=== PATIENT | male | born 1935 | race Caucasian/White ===

== ENCOUNTER → 2017-09-15 15:09 | Outpatient (CLI) | payer OTHER, SELFPAY ==
--- NOTE | 2017-09-15 | DI.RAD.S_ITS ---
PROCEDURE: XR SHOULDER LT MIN 2V INDICATIONS: LEFT SHOLDER PAIN TECHNIQUE: 4 views of the shoulder were acquired. COMPARISON: None. FINDINGS: Bones: No fractures or dislocations. No suspicious bony lesions. Visualized ribs appear intact. Degenerative joint narrowing and marginal spurring at the a.c. and glenohumeral joints. Soft tissues: No suspicious soft tissue calcifications. Aortic calcifications. IMPRESSION: 1. No acute bony abnormality. 2. 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 Dictated by: Luis Avalos M.D. on 09/15/2017 at 16:03 Approved by: Luis Avalos M.D. on 09/15/2017 at 16:05
--- NOTE | 2017-09-15 | DI.RAD.S_ITS ---
PROCEDURE: XR SHOULDER RT MIN 2V INDICATIONS: SHOULDER PAIN TECHNIQUE: 4 views of the shoulder were acquired. COMPARISON: None. FINDINGS: Bones: Old fracture deformity right mid clavicle. No acute fractures or dislocations. No suspicious bony lesions. Visualized ribs appear intact. Marginal spurring consistent with arthritis at the a.c. joint level. Medial humeral head bone spur indicates glenohumeral arthritis. The humeral head is high riding with narrowed subacromial space, suggesting rotator cuff pathology. Soft tissues: No suspicious soft tissue calcifications. IMPRESSION: 1. Glenohumeral and acromioclavicular osteoarthritis. Dictated by: Luis Avalos M.D. on 09/15/2017 at 16:17 Approved by: Luis Avalos M.D. on 09/15/2017 at 16:18
== END ==
PROVIDERS: Family Provider Urology; PCP Internal Medicine; Visit Provider Chiropractor
DX: M19.012 Primary osteoarthritis, left shoulder (principal)
CPT/HCPCS: 73030

== ENCOUNTER → 2018-04-13 13:37 | Outpatient (CLI) | payer OTHER, SELFPAY ==
--- NOTE | 2018-04-13 | DI.RAD.S_ITS ---
PROCEDURE: XR ANKLE LT MIN 3V INDICATIONS: LEFT ANKLE AND JOINTS TECHNIQUE: 5 views of the ankle were acquired. COMPARISON: None. FINDINGS: Bones: Oblique fracture of the lateral malleolus at the level of the syndesmosis. Medial and lateral malleolar tip spurring. Diffuse spurring of the the hindfoot and midfoot. Plantar and posterior calcaneal spurs. Soft tissues: No tibiotalar joint effusion. Achilles tendon appears normal. Scattered vascular calcifications. IMPRESSION: Lateral malleolar oblique fracture. Overlying soft tissue swelling Plantar and posterior calcaneal spurs. Dictated by: Harpreet Bui M.D. on 04/13/2018 at 16:20 Approved by: Harpreet Bui M.D. on 04/13/2018 at 16:23
[2018-04-13 15:22] LABS: Alanine Aminotransferase 27 IU/L (21-72); Albumin 4.3 g/dL (3.5-5.0); Albumin Globulin Ratio 1.5 (1.0-2.8); Alkaline Phosphatase 71 U/L (38-126); Aspartate Aminotransferase 20 IU/L (17-59); BUN Creatinine Ratio 18.9 (6-22); Bilirubin Total 0.4 mg/dL (0.2-1.3); Blood Urea Nitrogen 17 mg/dL (9-20); Calcium 11.1 mg/dL (8.4-10.2); Carbon Dioxide 28 mmol/L (22-32); Chloride 101 mmol/L (98-107); Estimated Glomerular Filt Rate > 60.0 mL/min (>60); Globulin 2.9 g/dL (1.7-4.1); Glucose 107 mg/dL (80-110); HEMOLYSIS < 15 (0-50); Potassium 4.5 mmol/L (3.4-5.1); Sodium 143 mmol/L (137-145); Total Protein 7.2 g/dL (6.3-8.2)
[2018-04-13 15:52] LABS: Prostate Specific Antigen Scrn 1.61 ng/mL (0.1-4.0)
[2018-04-13 16:36] LABS: HIV 1 and 2 Antibody NEGATIVE (NEGATIVE); Hep C Virus Ab w/Reflex Quant NEGATIVE s/c (NEGATIVE)
[2018-04-15 13:36] LABS: Parathyroid Hormone Int 86 pg/mL (14-64)
== END ==
PROVIDERS: Family Provider Urology; PCP Internal Medicine; Visit Provider Internal Medicine
DX: Z77.21 Contact with and (suspected) exposure to potentially hazardous body fluids (principal); E21.0 Primary hyperparathyroidism; R03.0 Elevated blood-pressure reading, without diagnosis of hypertension; M25.572 Pain in left ankle and joints of left foot; Z12.5 Encounter for screening for malignant neoplasm of prostate
CPT/HCPCS: 36415; 73610; 80053; 83970; 86703; 86803; G0103

== ENCOUNTER → 2018-07-16 13:48 | Outpatient (CLI) | payer OTHER, SELFPAY | PROVIDERS: PCP Internal Medicine; Visit Provider Internal Medicine | DX: M81.0 Age-related osteoporosis without current pathological fracture (principal); E21.3 Hyperparathyroidism, unspecified | CPT/HCPCS: 77080 ==

== ENCOUNTER → 2018-11-17 11:14 | Outpatient (CLI) | payer OTHER, SELFPAY ==
[2018-11-17 12:10] LABS: Calcium 10.3 mg/dL (8.4-10.2); Estimated Glomerular Filt Rate > 60.0 mL/min (>60)
[2018-11-17 21:25] LABS: Vitamin D 25 Hydroxy (D3) 49.8 ng/mL (30.0-100.0)
== END ==
PROVIDERS: PCP Internal Medicine; Visit Provider Internal Medicine Endocrinology, Diabetes & Metabolism
DX: E21.3 Hyperparathyroidism, unspecified (principal); M81.8 Other osteoporosis without current pathological fracture
CPT/HCPCS: 36415; 82306; 82310; 82565; 84443

== ENCOUNTER → 2018-11-19 12:00 | Outpatient (CLI) | payer OTHER, SELFPAY ==
[2018-11-19 15:38] LABS: Collection Time Urine 24 Hours; Creatinine 24 Hour Urine 1305 mg/day (1000-2000); Creatinine Urine Random 84.2 mg/dL; Total Volume Urine 1550 mL
[2018-11-19 15:44] LABS: Calcium 24 Hour Urine 369 mg/day (100-300); Calcium Urine Random 23.8; Collection Time Urine 24 Hours; Total Volume Urine 1550 mL
== END ==
PROVIDERS: Family Provider Internal Medicine; PCP Internal Medicine; Visit Provider Internal Medicine Endocrinology, Diabetes & Metabolism
DX: E21.3 Hyperparathyroidism, unspecified (principal); M81.8 Other osteoporosis without current pathological fracture
CPT/HCPCS: 82340; 82570

== ENCOUNTER 2019-02-09 00:51 | Emergency (ER) | payer OTHER, SELFPAY ==
[2019-02-09 00:54] VITALS: BP 168/95; PULSE 93; RESP 14; TEMP 36.8; O2SAT 94; BMI 24.3
--- NOTE | 2019-02-09 00:56 | ED.NEUROSD ---
HPI - Neuro Symptoms/Deficit General Chief Complaint: Neuro Symptoms/Deficit Stated Complaint: Lt side numbness Time Seen by Provider: 02/09/19 00:53 Source: patient and EMS Mode of arrival: EMS Limitations: no limitations History of Present Illness HPI Narrative: Patient is an 83-year-old male who presents with left-sided numbness. He states it started around 930 p.m. he felt like his face arm and leg were numb. He did not complain of weakness. He arrived in the ED at 12:45 a.m.. With improving symptoms. He denies any chest pain. He had no facial drooping or difficulty speaking. He has no prior history of TIA or stroke. He says he usually lays on his left side what Muna TV sometimes his leg or arm. Sleep. However he was up and about and the symptoms did not go away. They do seem to be improving now Related Data Home Medications Medication Instructions Recorded Confirmed CALCIUM CARBONATE (TUMS ) 500 mg NG PRN #0 08/18/10 Allergies Allergy/AdvReac Type Severity Reaction Status Date / Time codeine [CODEINE] AdvReac Mild n&v Verified 02/09/19 00:57 morphine [MORPHINE] AdvReac Mild N&V Verified 02/09/19 00:57 Review of Systems Review of Systems ROS Unobtainable: All systems reviewed & are unremarkable except as noted in HPI and below Constitutional Constitutional: Denies chills, Denies fever(s), Denies lethargy and Denies weakness Eyes Eyes: Denies change in vision, Denies eye discharge, Denies irritation and Denies loss of vision ENT Ears, Nose, Mouth, and Throat: Denies change in voice, Denies neck pain and Denies sore throat Cardiovascular Cardiovascular: Denies chest pain, Denies irregular heart rhythm, Denies lightheadedness, Denies palpitations, Denies dyspnea, Denies dyspnea on exertion and Denies orthopnea Respiratory Respiratory: Denies cough, Denies dyspnea, Denies dyspnea on exertion and Denies wheezing Genitourinary Genitourinary: Denies hematuria, Denies flank pain, Denies urinary incontinence and Denies urinary urgency Musculoskeletal Musculoskeletal: Denies neck pain and Reports tingling Neurologic Neurologic: Denies confusion, Denies loss of vision, Reports tingling and Denies weakness Psychiatric Psychiatric: Denies anxiety, Denies confusion, Denies depression, Denies homicidal ideation and Denies suicidal ideation Endocrine Endocrine: Denies palpitations Allergic/Immunologic Allergic/Immunologic: Denies wheezing Patient History Medical History Patient denies medical problems (Acute) Social History (Updated 02/09/19 @ 06:11 by Leighann Salinas DO) Smoking Status: Never smoker alcohol intake: never Social History Smoking Status: Never smoker alcohol intake: never Exam Initial Vital Signs Initial Vital Signs: Vital Signs Temperature 98.2 F 02/09/19 00:54 Pulse Rate 93 H 02/09/19 00:54 Respiratory Rate 14 02/09/19 00:54 Blood Pressure 168/95 H 02/09/19 00:54 Pulse Oximetry 94 02/09/19 00:54 GENERAL: Alert well-appearing elderly gentleman HEENT: Head atraumatic,EOMI, pupils reactive, face symmetric, moist mucous membranes CARDIOVASCULAR: Regular rate and rhythm without murmurs, rubs or gallops. RESPIRATORY: Breath sounds equal bilaterally, no wheezes rales or rhonchi. ABDOMEN: Soft, nontender. Normoactive bowel sounds all 4 quadrants. No guarding or rebound. EXTREMITIES: Normal range of motion, no clubbing or edema. Neurovascularly intact NEUROLOGICAL: Alert and oriented x4.Normal gait and speech. Cranial nerves II through XII grossly intact. Good tadlxq-vl-xmbo, good uibx-xk-auls, strength equal bilaterally, no dysarthria or aphasia, sensation in tact to soft touch bilaterally, no visual changes, no facial droop SKIN: Warm, dry, no laceration, no petechiae, no rashes or lesions. Scores ABCD2 Age >= 60 years: yes Initial BP. Either SBP >= 140 or DBP >= 90.: yes Clinical features of the TIA: other symptoms Duration of symptoms: >= 60 minutes History of diabetes: no ABCD2 Score: 4 NIH Stroke Scale Level of Conciousness: Alert, keenly responsive Ask month/age: Answers both questions correctly. Open/close eyes, close hand: Performs both tasks correctly Best gaze horizontal: Normal Visual hurd: No visual loss Facial palsy: Normal symetrical movement Left arm drift: No drift for full 10 sec Right arm drift: No drift for full 10 sec Left leg drift: No drift for full 10 sec Right leg drift: No drift for full 10 sec Limb ataxia: Absent Sensory on face/arms/legs: Normal, no sensory loss Best language: No aphasia, normal Dysarthria: Normal Extinction or inattention: No abnormality Total NIH Stroke scale score: 0 Course Orders Ordered: ED Orders 02/09/19 EKG-12 Lead Stat 02/09/19 00:30 Basic Metabolic Panel Stat Complete Blood Count AUTO DIFF Stat Partial Thromboplastin Time Stat Prothrombin Time INR Stat 02/09/19 01:05 CT head/brain wo con Stat 02/09/19 02:00 Urine Culture Stat Urine Drug Screen, Rapid Stat Urine Microscopic Stat Sodium Chloride (Normal Saline 0.9%) 1,000 mls @ 150 mls/hr IV CONT JACKIE Last Admin: 02/09/19 01:09 Dose: 150 mls/hr Documented by: FERNANDO Discontinued Medications Aspirin (Aspirin Chew) 324 mg PO NOW ONE Stop: 02/09/19 02:24 Last Admin: 02/09/19 02:35 Dose: 324 mg Documented by: [email or web address] Vital Signs Vital signs: Vital Signs - 8 hr 02/09/19 00:54 02/09/19 01:19 02/09/19 02:43 Temperature 98.2 F Pulse Rate 93 H 93 H 93 H Respiratory Rate 14 18 16 Blood Pressure 168/95 H Blood Pressure [Left Arm] 138/92 H 134/79 Pulse Oximetry 94 95 95 02/09/19 03:33 Temperature Pulse Rate 95 H Respiratory Rate 17 Blood Pressure Blood Pressure [Left Arm] 161/103 H Pulse Oximetry 97 MDM - Neuro Symptoms/Deficit Lab Data Attestation: I reviewed the patient's lab results. Result diagrams: 02/09/19 00:30 02/09/19 00:30 Labs: Lab Results 02/09/19 02/09/19 02/09/19 Range/Units 00:30 00:30 00:30 WBC 7.0 (4.5-11.0) X10^3/uL RBC 4.83 (4.5-5.9) X10^6/uL Hgb 14.5 (13.5-17.5) g/dL Hct 43.2 (41-53) % MCV 89.5 (80-100) fL MCH 30.0 (26-34) PG MCHC 33.6 (30-36) % RDW 13.7 (11.6-14.8) % Plt Count 223 (150-400) X10^3/uL Neut % (Auto) 63.2 (50-75) % Lymph % (Auto) 21.7 L (25-40) % [place] % (Auto) 9.8 (3-14) % Eos % (Auto) 4.3 H (2-4) % Baso % (Auto) 1.0 (0-2) % Neut # (Auto) 4400 (5650-5979) /uL Lymph # (Auto) 1500 (7588-1626) /uL [place] # (Auto) 700 (0-900) /uL Eos # (Auto) 300 (0-450) /uL Baso # (Auto) 100 (0-100) /uL PT 11.0 (10.1-12.7) SECONDS INR 1.0 (0.9-1.3) APTT 32 (26.4-36.2) SECONDS Sodium 138 (137-145) mmol/L Potassium 4.2 (3.4-5.1) mmol/L Chloride 103 (98-107) mmol/L Carbon Dioxide 29 (22-32) mmol/L BUN 16 (9-20) mg/dL Creatinine 0.80 (0.66-1.25) mg/dL Estimated GFR > 60.0 (>60) mL/min BUN/Creatinine Ratio 20.0 (6-22) Glucose 111 H (80-110) mg/dL Calcium 10.9 H (8.4-10.2) mg/dL Urine RBC (0-5/HPF) Urine WBC (0-5/HPF) Urine Bacteria (None) Ur Culture Indicated? U Morph 300 ng/mL cutoff (Negative) Ur Oxycodone Screen (Negative) Urine Methadone Screen (Negative) Ur Barbiturates Screen (Negative) U Tricyclic Antidepress (Negative) Ur Phencyclidine Scrn (Negative) Ur Amphetamines Screen (Negative) U Methamphetamines Scrn (Negative) Ur MDMA Scrn (Ecstasy) (Negative) U Benzodiazepines Scrn (Negative) Urine Cocaine Screen (Negative) U Marijuana (THC) Screen (Negative) 02/09/19 02/09/19 Range/Units 02:00 02:00 WBC (4.5-11.0) X10^3/uL RBC (4.5-5.9) X10^6/uL Hgb (13.5-17.5) g/dL Hct (41-53) % MCV (80-100) fL MCH (26-34) PG MCHC (30-36) % RDW (11.6-14.8) % Plt Count (150-400) X10^3/uL Neut % (Auto) (50-75) % Lymph % (Auto) (25-40) % [place] % (Auto) (3-14) % Eos % (Auto) (2-4) % Baso % (Auto) (0-2) % Neut # (Auto) (9014-7757) /uL Lymph # (Auto) (5081-9297) /uL [place] # (Auto) (0-900) /uL Eos # (Auto) (0-450) /uL Baso # (Auto) (0-100) /uL PT (10.1-12.7) SECONDS INR (0.9-1.3) APTT (26.4-36.2) SECONDS Sodium (137-145) mmol/L Potassium (3.4-5.1) mmol/L Chloride (98-107) mmol/L Carbon Dioxide (22-32) mmol/L BUN (9-20) mg/dL Creatinine (0.66-1.25) mg/dL Estimated GFR (>60) mL/min BUN/Creatinine Ratio (6-22) Glucose (80-110) mg/dL Calcium (8.4-10.2) mg/dL Urine RBC 0-1/hpf (0-5/HPF) Urine WBC 0-1/hpf (0-5/HPF) Urine Bacteria None seen (None) Ur Culture Indicated? Specimen cultured U Morph 300 ng/mL cutoff Negative (Negative) Ur Oxycodone Screen Negative (Negative) Urine Methadone Screen Negative (Negative) Ur Barbiturates Screen Negative (Negative) U Tricyclic Antidepress Negative (Negative) Ur Phencyclidine Scrn Negative (Negative) Ur Amphetamines Screen Negative (Negative) U Methamphetamines Scrn Negative (Negative) Ur MDMA Scrn (Ecstasy) Negative (Negative) U Benzodiazepines Scrn Negative (Negative) Urine Cocaine Screen Negative (Negative) U Marijuana (THC) Screen Negative (Negative) Urine Dip Bedside Urine Glucose 100 mg/dl Bedside Urine Bilirubin - Negative Bedside Urine Ketone - Negative Urine Specific [place] 1.010 Bedside Urine Occult Blood +/- Bedside Urine pH 6.5 Bedside Urine Protein - Negative Bedside Urine Urobilinogen - Negative Bedside Urine Nitrite - Negative Bedside Urine Leukocytes + [address] scan - head: Radiologist's impression: shift foreman report: Generalized involutional changes with extensive chronic microvascular changes noted. No acute abnormality identified ECG Data Attestation: I personally reviewed and interpreted this ECG as follows: Prior ECG tracings: available for review Interpretation: Right bundle branch block rate id was sinus rhythm. similar to previous MDM Narrative Medical decision making narrative: Patient overall is feeling better. He had some vague numbness on left side of his body which improved. Possible TIA Discharge Plan Departure Patient Disposition: Home Clinical Impression: Brain TIA Instructions: DI for Transient Ischemic Attack Activity Restrictions/Additional Instructions: *You have been diagnosed with tia *What to do: You still need further workup with her PCP. You need MRI echocardiogram and carotid Dopplers. The symptoms suggest a possible mini stroke. This can put you at risk for a much larger more prominent stroke. *Continue to take medications as directed Aspirin 81 mg once a day *Follow up with your primary care provider in 2-3 days *Return to ER if you should have increased numbness, weakness, speech difficulty facial drooping, or any new, worsening or concerning symptoms Prescriptions: No Action CALCIUM CARBONATE (TUMS ) 500 mg NG PRN Qty: 0 RF: 0 Referrals: Clovis Ho MD [Primary Care Provider] -
--- NOTE | 2019-02-09 01:05 | DI.CT.S_ITS ---
PROCEDURE: CT HEAD/BRAIN WO CON INDICATIONS: right sided numbness/tingling. now resovled TECHNIQUE: Noncontrast 4.5 mm thick angled axial sections acquired from the foramen magnum to the vertex, with coronal and sagittal reformats. For radiation dose reduction, the following was used: automated exposure control, adjustment of mA and/or kV according to patient size. COMPARISON: None. FINDINGS: Image quality: Excellent. CSF spaces: Basal cisterns are patent. No extra-axial fluid collections. The ventricles are symmetric in size and shape. Brain: No intracranial bleeds or masses. There is cerebral volume loss for age, with resultant ventricular and sulcal prominence. There are periventricular and deep white matter chronic small vessel ischemic changes. There is intracranial internal carotid artery atherosclerosis. Skull and face: Calvarium and visualized facial bones appear intact, without suspicious lesions. Sinuses: Visualized sinuses and mastoids are clear. IMPRESSION: No acute intracranial process. Dictated by: Harpreet Bui M.D. on 02/09/2019 at 8:10 Approved by: Harpreet Bui M.D. on 02/09/2019 at 8:14
[2019-02-09] MEDS: SODIUM CHLORIDE 0.9% 1,000 ML 150 ML IV (01:09)
[2019-02-09 01:15] LABS: Add Manual Diff / Slide Review NO; Basophils Absolute Auto 100 /uL (0-100); Eosinophils Absolute Auto 300 /uL (0-450); Eosinophils Percent Auto 4.3 % (2-4); Hematocrit 43.2 % (41-53); Hemoglobin 14.5 g/dL (13.5-17.5); Lymphocytes Absolute Auto 1500 /uL (1100-4500); Lymphocytes Percent Auto 21.7 % (25-40); Mean Corpuscular HGB Conc 33.6 % (30-36); Mean Corpuscular Volume 89.5 fL (80-100); Monocytes Absolute Auto 700 /uL (0-900); Monocytes Percent Auto 9.8 % (3-14); Neutrophils Absolute Auto 4400 /uL (1500-7000); Neutrophils Percent Auto 63.2 % (50-75); Platelet Count 223 X10^3/uL (150-400); Red Blood Cell Count 4.83 X10^6/uL (4.5-5.9); Red Cell Distribution Width 13.7 % (11.6-14.8)
[2019-02-09 01:19] VITALS: BP 138/92; PULSE 93; RESP 18; O2SAT 95
[2019-02-09 01:19] LABS: Blood Urea Nitrogen 16 mg/dL (9-20); Calcium 10.9 mg/dL (8.4-10.2); Carbon Dioxide 29 mmol/L (22-32); Chloride 103 mmol/L (98-107); Estimated Glomerular Filt Rate > 60.0 mL/min (>60); Glucose 111 mg/dL (80-110); HEMOLYSIS 22 (0-50); PTT Partial Thromboplastin Tim 32 SECONDS (26.4-36.2); Potassium 4.2 mmol/L (3.4-5.1); Sodium 138 mmol/L (137-145)
[2019-02-09 02:10] LABS: Bacteria Urine None Seen
[2019-02-09 02:20] LABS: Ur Creatinine 20 (Normal); Ur Specific Gravity 1.015 (Normal); Urine pH 5 (Normal)
[2019-02-09 02:21] LABS: UR Morphine/Opiate cutoff 300 Negative (Negative); Urine Amphetamines Negative (Negative); Urine Barbiturates Negative (Negative); Urine Benzodiazepines Negative (Negative); Urine Cocaine Negative (Negative); Urine MDMA Negative (Negative); Urine Methadone Negative (Negative); Urine Methamphetamines Negative (Negative); Urine Oxycodone Negative (Negative); Urine Phencyclidine Negative (Negative); Urine Tetrahydrocannabinol Negative (Negative); Urine Tricyclic Antidepressant Negative (Negative)
[2019-02-09] MEDS: ASPIRIN 81 MG CHEW TAB 324 MG PO (02:35)
[2019-02-09 02:39] LABS: RBC Urine 0-1/HPF (0-5/HPF); WBC Urine 0-1/HPF (0-5/HPF)
[2019-02-09 02:40] LABS: Culture Indicated Urine Specimen Cultured
[2019-02-09 02:43] VITALS: BP 134/79; PULSE 93; RESP 16; O2SAT 95
[2019-02-09 03:33] VITALS: BP 161/103; PULSE 95; RESP 17; O2SAT 97
[2019-02-09 07:00] VITALS: BP 116/71; PULSE 58; RESP 16; O2SAT 94
--- NOTE | 2019-03-23 13:12 | PC.NURSE ---
NS started at 0109 by JONATHAN completed at 0745 upon discharge.
== END 2019-02-09 07:46 | disposition home or self-care (01) ==
PROVIDERS: Emergency Provider Emergency Medicine; Family Provider Internal Medicine; PCP Internal Medicine
DX: G45.9 Transient cerebral ischemic attack, unspecified (principal)
CPT/HCPCS: 70450; 80048; 80305; 81003; 81015; 85025; 85610; 85730; 87086; 93005; 96360; 96361; 99283; 99285

== ENCOUNTER → 2019-02-11 14:45 | Outpatient (CLI) | payer OTHER, SELFPAY ==
[2019-02-11 16:39] LABS: Calcium 10.6 mg/dL (8.4-10.2); Estimated Glomerular Filt Rate > 60.0 mL/min (>60)
[2019-02-11 17:10] LABS: TSH w/ Reflex to FT4 1.61 uIU/mL (0.47-4.68)
[2019-02-19 12:51] LABS: Parathyroid Hormone Int 91 pg/mL (14-64)
== END ==
PROVIDERS: Family Provider Internal Medicine; PCP Internal Medicine; Visit Provider Internal Medicine Endocrinology, Diabetes & Metabolism
DX: E21.3 Hyperparathyroidism, unspecified (principal); M81.8 Other osteoporosis without current pathological fracture
CPT/HCPCS: 36415; 82310; 82565; 83970; 84443

== ENCOUNTER → 2019-02-15 08:46 | Outpatient (CLI) | payer OTHER, SELFPAY ==
[2019-02-15 11:16] LABS: Cholesterol 167 mg/dL (140-199); HDL Cholesterol 48 mg/dL (40-60); LDL Cholesterol Calculated 102 mg/dL (<100); Triglycerides 86 mg/dL (35-150)
== END ==
PROVIDERS: PCP Internal Medicine; Visit Provider Internal Medicine
DX: G45.9 Transient cerebral ischemic attack, unspecified (principal)
CPT/HCPCS: 36415; 80061

== ENCOUNTER → 2019-02-21 14:38 | Outpatient (CLI) | payer OTHER, SELFPAY ==
--- NOTE | 2019-02-21 | DI.MRI.S_ITS ---
PROCEDURE: MR STROKE Pre- and post-contrast brain MRI, non-contrast brain MR angiogram, pre- and postcontrast neck MR angiogram INDICATIONS: Transient cerebral ischemic attack, unspecified TECHNIQUE: Brain: Noncontrast axial T1 spin echo, axial T2 fast spin echo, sagittal and axial FLAIR, coronal T2 fast spin echo, axial gradient echo, axial diffusion and ADC through the brain. After the administration of contrast, axial 3D VIBE of the cranial vasculature and brain. Brain MRA: Non-contrast 3-D time of flight MR angiogram, with multiple eamsqnb-uohcsomna-rtvcdxqqcc (MIP) reformats performed. Neck MRA: Axial and sagittal TruFISP through the neck. Coronal dynamic MR angiogram during administration of contrast in the arterial and venous phases, with 3-dimenstional gizlopn-eoxpojijd-bovokxmjvw (MIP) reformats constructed from subtraction images. COMPARISON: None. FINDINGS: Image quality: Excellent. BRAIN: CSF spaces: Ventricles are normal in size and shape. Basal cisterns are patent. No extra-axial fluid collections. Brain: No intracranial bleeds or mass effects. Lei-white matter interface is normal. Diffusion weighted images show no acute ischemic insults. Brainstem appears normal. Normal intravascular flow voids are present. Relatively prominent perivascular spaces are seen. No abnormal intracranial enhancement. Skull and face: Calvarial marrow signal is normal. Orbits appear normal. Note is made of bilateral lens replacements. Sinuses: Sinuses and mastoids are clear. BRAIN MR ANGIOGRAM: Anterior circulation: Intracranial internal carotid arteries are normal in size and enhancement. The flow within the paired anterior cerebral arteries is normal and symmetric. The flow within the middle cerebral arteries is normal and symmetric. The anterior communicating artery is seen. No stenoses, occlusions, or aneurysms. Posterior circulation: The visualized portions of the vertebral arteries demonstrate normal caliber, and join to form a normal appearing basilar artery. The flow within the posterior cerebral arteries is normal and symmetric. No stenoses, occlusions, or aneurysms. NECK MR ANGIOGRAM: Carotids: Great vessels demonstrate a conventional anatomy as they arise from the aortic arch. The origins of the common carotid arteries appear patent. The calibers and courses of both common carotid arteries are normal. The bifurcation regions appear normal bilaterally. The internal carotid arteries demonstrate normal course and caliber. Posterior circulation: The origins of the vertebral arteries appear patent. More superior portions of both vertebral arteries demonstrate normal course and caliber, and join to form a normal appearing basilar artery. The left vertebral artery is dominant to the right. Miscellaneous: Subclavian arteries appear patent. Pre-contrast images through the neck show no soft tissue abnormalities. IMPRESSION: BRAIN MRI: No findings of acute or subacute infarction can be seen. Note is made of age-appropriate brain parenchymal volume loss and chronic small vessel ischemic changes. No masses or abnormal enhancement can be seen. BRAIN MR ANGIOGRAM: No significant intracranial arterial abnormality is detected. NECK MR ANGIOGRAM: Within the arteries of the neck, no hemodynamically significant stenosis can be seen. Dictated by: Jovanny Wei M.D. on 02/21/2019 at 15:34 Approved by: Jovanny Wei M.D. on 02/21/2019 at 15:38
== END ==
PROVIDERS: PCP Internal Medicine; Visit Provider Internal Medicine
DX: G45.9 Transient cerebral ischemic attack, unspecified (principal)
CPT/HCPCS: 70548; 70553; A9579

== ENCOUNTER → 2019-03-01 07:55 | Outpatient (CLI) | payer OTHER, SELFPAY ==
--- NOTE | 2019-03-01 | DI.ECHO.S_ITS ---
[facility] +---------+ : : [address] : : : : [id number] : : : : Phone: [phone] Echocardiogram Report + + :Name: CLINTON CHAMBERLAIN Study Date: 03/01/2019 Height: 67 in : :[facility] Weight: 154 lb : : Gender: Male BSA: 1.8 m2 : :: 1935 Age: 83 yrs BP: 136/78 mmHg: :Reason For Study: TIA : :Ordering Physician: Darline : :Junaid Performed By: Clari Goldstein : + + Interpretation Summary The left ventricle is normal in size. Left ventricular systolic function is normal without focal wall motion abnormalities. The ejection fraction is estimated to be 60-65%. Diastolic parameters suggest a relaxation abnormality of the left ventricle, consistent with probable normal filling pressures. The right ventricle is normal in size and function. The right ventricular systolic pressure is estimated to be at least 23 mmHg based on an estimated right atrial pressure of 3 mm Hg. The left atrium is moderately dilated. The right atrium is mildly dilated. There is mild mitral regurgitation. There is mild aortic regurgitation. There is no other significant valvular heart disease. The ascending aorta is mildly enlarged. Procedure: A two-dimensional transthoracic echocardiogram with color flow and Doppler was performed. The study quality was technically adequate. There is no prior echocardiogram noted for this patient. The patient was in normal sinus rhythm during the exam. Wide QRS complexes. Left Ventricle: The left ventricle is normal in size. Left ventricular wall thickness is mildly increased. There is no ventricular septal defect visualized. Left ventricular systolic function is normal without focal wall motion abnormalities. The ejection fraction is estimated to be 60-65%. Diastolic parameters suggest a relaxation abnormality of the left ventricle, consistent with probable normal filling pressures. Right Ventricle: The right ventricle is normal in size and function. Atria: The left atrium is moderately dilated. The right atrium is mildly dilated. There is no Doppler evidence for an interatrial shunt. Mitral Valve: The mitral valve is normal in structure and function. There is mild mitral regurgitation. Aortic Valve: The aortic valve is normal in structure and function. There is mild aortic regurgitation. Tricuspid Valve: The tricuspid valve is normal in structure and function. There is a trace or physiologic amount of tricuspid regurgitation. The right ventricular systolic pressure is estimated to be at least 23 mmHg based on an estimated right atrial pressure of 3 mm Hg. Pulmonic Valve: The pulmonic valve is normal in structure and function. There is a trace or physiologic amount of pulmonic regurgitation. There is no other significant valvular heart disease. Great Vessels: The aortic root is normal size. The ascending aorta is mildly enlarged. The aortic arch is normal in size. The IVC is of normal diameter and collapses greater than 50% with a sniff. This suggests a low right atrial pressure of 3 mm Hg. Pericardium/ Pleura There is no pericardial effusion. MMode/2D Measurements & Calculations LVIDd: 5.2 cm LVOT diam: 2.1 cm LVIDs: 2.8 cm Ao root diam: 3.6 cm FS: 47.0 % Aortic Jxn: 2.9 cm EPSS: 0.51 cm asc Aorta Diam: 3.6 cm IVSd: 1.2 cm Ao Arch Diam (Prox Trans): 3.1 cm LVPWd: 1.3 cm LV grande. diameter/BSA (cm/m^2): 2.9 LV sys. diameter/BSA (cm/m^2): 1.5 LA A2 area: 23.8 cm2 RA long axis: 5.4 cm LA A4 area: 24.0 cm2 RA area: 19.9 cm2 LA length (vol): 5.6 cm RA vol: 62.6 ml LA vol: 86.1 ml RA : 34.6 ml/m2 LA vol index: 47.6 ml/m2 IVC diam: 1.3 cm RVD1 (basal): 3.8 cm RVD2 (mid): 3.2 cm TAPSE: 2.3 cm Doppler Measurements & Calculations Ao V2 max: 124.6 cm/sec LVOT Max Zur[place]: 88.9 cm/sec Ao V2 mean: 82.8 cm/sec LV V1 max P.2 mmHg Ao max P.2 mmHg LV V1 VTI: 17.6 cm Ao mean P.2 mmHg SUSAN(I,D): 2.4 cm2 Ao V2 VTI: 26.2 cm SUSAN(V,D): 2.5 cm2 sev ratio: 0.67 SUSAN indexed to BSA (cm^2/m^2): 1.3 AI P1/2t: 801.0 msec AI dec slope: 144.3 cm/sec2 MV E max zurdo: 41.7 cm/sec TR max zurdo: 221.6 cm/sec MV A max zurdo: 51.2 cm/sec TR max P.6 mmHg MV E/A: 0.81 PA V2 max: 76.7 cm/sec Med Peak E' Zurdo: 5.9 cm/sec PA V2 mean: 53.8 cm/sec E/E' med: 7.1 PA mean P.3 mmHg Lat Peak E' Zurdo: 9.5 cm/sec PA Accel Time: 0.09 sec E/E' lat: 4.4 E/e' average: 5.7 MV dec time: 0.33 sec MV P1/2t: 96.1 msec MR ERO: 0.16 cm2 MV P1/2t max zurdo: 41.7 cm/sec MR flow rate: 88.2 cm3/sec MVA(P1/2t): 2.3 cm2 MR PISA radius: 0.60 cm SV(LVOT): 61.6 ml Reading Physician:03:12 PM
== END ==
PROVIDERS: PCP Internal Medicine; Visit Provider Internal Medicine
DX: I08.0 Rheumatic disorders of both mitral and aortic valves (principal); I77.89 Other specified disorders of arteries and arterioles; G45.9 Transient cerebral ischemic attack, unspecified
CPT/HCPCS: 93306

== ENCOUNTER → 2019-04-12 14:52 | Outpatient (ROUT) | payer OTHER, SELFPAY ==
[2019-04-12 15:23] LABS: Blood Urea Nitrogen 18 mg/dL (9-20); Carbon Dioxide 30 mmol/L (22-32); Chloride 102 mmol/L (98-107); Estimated Glomerular Filt Rate > 60.0 mL/min (>60); Glucose 99 mg/dL (80-110); HEMOLYSIS 29 (0-50); Magnesium 2.2 mg/dL (1.6-2.3); Phosphorous 2.4 mg/dL (2.3-3.7); Potassium 4.4 mmol/L (3.4-5.1); Sodium 139 mmol/L (137-145)
== END ==
PROVIDERS: PCP Internal Medicine; Visit Provider Internal Medicine
DX: R20.2 Paresthesia of skin (principal)
CPT/HCPCS: 80048; 83735; 84100

== ENCOUNTER → 2019-12-05 10:44 | Outpatient (CLI) | payer OTHER, SELFPAY | PROVIDERS: PCP Student in an Organized Health Care Education/Training Program; Visit Provider Specialist | DX: N39.0 Urinary tract infection, site not specified (principal); R31.0 Gross hematuria; N43.41 Spermatocele of epididymis, single; Z87.442 Personal history of urinary calculi | CPT/HCPCS: 51798; 81002; 87086; 99214 ==

== ENCOUNTER → 2019-12-15 12:13 | Outpatient (CLI) | payer OTHER, SELFPAY ==
--- NOTE | 2019-12-15 12:14 | DI.CT.S_ITS ---
PROCEDURE: CT KIDNEY URETER BLADDER (KUB) INDICATIONS: hematuria TECHNIQUE: Noncontrast 5 mm thick sections acquired from the diaphragms to the symphysis. 5 mm thick coronal and sagittal reformats were then performed. For radiation dose reduction, the following was used: automated exposure control, adjustment of mA and/or kV according to patient size. COMPARISON: None. FINDINGS: Image quality: Excellent. Lung bases: Lung bases are clear. Heart size is normal. Urinary system: Both kidneys are normal in size. There are bilateral nonobstructive small kidney stones. Scattered within the collecting system of each kidney measuring between 2 and 3 mm in diameter. No ureteral stone is found. No hydronephrosis or perinephric fat stranding. Both ureters appear non-dilated throughout their expected courses. Bladder wall thickness is normal; no calcified bladder stones. Other solid organs: Liver is normal in size. Gallbladder yes . Pancreas is normal in contours. Spleen is normal in size. No adrenal nodules. Peritoneum and bowel: Unenhanced bowel loops demonstrate normal wall thickness and caliber. No free fluid or air. Nodes and vessels: No retroperitoneal or mesenteric adenopathy by size criteria. Aorta and inferior vena cava are normal in caliber. Abdominal wall: No ventral hernias. Pelvis: No free pelvic fluid. No inguinal hernias or adenopathy. Prosthetic calcifications are relatively prominent in this patient, peripherally located. What appears to be a TURP defect is present at the midline of the upper pelvis. Bones: No suspicious bony lesions. No vertebral body compression fractures. IMPRESSION: The study is performed without contrast and no renal cortical or urothelial mass lesion is found. There are scattered nonobstructive small 2-3 mm calculi within the collecting system of each kidney but no ureteral calculus or evidence of bladder calculus is found. Prostate calcifications are relatively prominent, peripheral, and not suspicious for representing prosthetic urethral calculi. Presumed TURP defect. Dictated by: Alvino Sheridan M.D. on 12/15/2019 at 13:17 Approved by: Alvino Sheridan M.D. on 12/15/2019 at 13:47
[2019-12-15 14:11] LABS: Prostate Specific Antigen 2.33 ng/mL (0.10-4.00)
== END ==
PROVIDERS: PCP Student in an Organized Health Care Education/Training Program; Referring Provider Student in an Organized Health Care Education/Training Program; Visit Provider Specialist
DX: R31.0 Gross hematuria (principal); N40.0 Benign prostatic hyperplasia without lower urinary tract symptoms; N20.0 Calculus of kidney
CPT/HCPCS: 36415; 74176; 84153

== ENCOUNTER → 2020-02-09 11:07 | Outpatient (CLI) | payer OTHER, SELFPAY ==
--- NOTE | 2020-02-09 11:12 | DI.RAD.S_ITS ---
PROCEDURE: XR KUB INDICATIONS: kidney stone TECHNIQUE: One view of the abdomen acquired. COMPARISON: [facility], CT, CT KIDNEY URETER BLADDER (KUB), 12/15/2019, 12:18. FINDINGS: Surgical changes and devices: None. Bowel: Bowel gas pattern is normal. Soft tissues: No definite radiographically visible nephrolithiasis. Visualized solid organ contours appear normal in size. Bones: Dextro curvature and multilevel spondylosis and facet arthropathy. Bilateral hip joint degeneration, mild IMPRESSION: Previously identified nephrolithiasis on prior CT scan not well radiographically visualized. Dictated by: Harpreet Bui M.D. on 02/09/2020 at 15:26 Approved by: Harpreet Bui M.D. on 02/09/2020 at 16:11
[2020-02-09 13:37] LABS: Uric Acid 6.8 mg/dL (3.5-8.5)
[2020-02-10 10:29] LABS: Parathyroid Hormone Int 78 pg/mL (15-65)
== END ==
PROVIDERS: PCP Student in an Organized Health Care Education/Training Program; Referring Provider Specialist; Visit Provider Specialist
DX: N20.0 Calculus of kidney (principal)
CPT/HCPCS: 36415; 74018; 82310; 83970; 84550

== ENCOUNTER → 2020-03-08 12:49 | Outpatient (CLI) | payer OTHER, SELFPAY ==
[2020-03-08 13:46] LABS: BUN Creatinine Ratio 18.1 (6-22); Blood Urea Nitrogen 15 mg/dL (9-20); Calcium 10.3 mg/dL (8.4-10.2); Carbon Dioxide 30 mmol/L (22-32); Chloride 103 mmol/L (98-107); Estimated Glomerular Filt Rate > 60.0 mL/min (>60); Glucose 101 mg/dL (80-110); HEMOLYSIS < 15 (0-50); Potassium 4.4 mmol/L (3.4-5.1); Sodium 138 mmol/L (137-145)
[2020-03-08 15:24] LABS: Vitamin D 25 Hydroxy (D3) 49.8 ng/mL (30.0-100.0)
[2020-03-08 16:51] LABS: HIV 1 & 2 Ab/Ag 4th Gen Combo NEGATIVE (NEGATIVE)
[2020-03-09 07:36] LABS: Parathyroid Hormone Int 89 pg/mL (15-65)
== END ==
PROVIDERS: PCP Student in an Organized Health Care Education/Training Program; Referring Provider Student in an Organized Health Care Education/Training Program; Visit Provider Student in an Organized Health Care Education/Training Program
DX: E21.3 Hyperparathyroidism, unspecified (principal); M81.0 Age-related osteoporosis without current pathological fracture; N20.0 Calculus of kidney
CPT/HCPCS: 36415; 80048; 82306; 83970; 87389

== ENCOUNTER → 2020-04-12 09:37 | Outpatient (CLI) | payer OTHER, SELFPAY | PROVIDERS: PCP Student in an Organized Health Care Education/Training Program; Referring Provider Nurse Practitioner; Visit Provider Nurse Practitioner | DX: Z13.820 Encounter for screening for osteoporosis (principal); M81.0 Age-related osteoporosis without current pathological fracture; E21.3 Hyperparathyroidism, unspecified | CPT/HCPCS: 77080 ==

== ENCOUNTER → 2020-04-12 10:00 | Outpatient (CLI) | payer OTHER, SELFPAY ==
[2020-04-12 11:31] LABS: Erythrocyte Sedimentation Rate 7 MM/HR (0-15)
== END ==
PROVIDERS: PCP Student in an Organized Health Care Education/Training Program; Referring Provider Specialist; Visit Provider Specialist
DX: H57.11 Ocular pain, right eye (principal); Z86.69 Personal history of other diseases of the nervous system and sense organs
CPT/HCPCS: 36415; 85651

== ENCOUNTER → 2020-05-18 12:42 | Outpatient (CLI) | payer OTHER, SELFPAY ==
[2020-05-18 13:52] LABS: BUN Creatinine Ratio 18.5 (6-22); Blood Urea Nitrogen 15 mg/dL (9-20); Calcium 10.2 mg/dL (8.4-10.2); Carbon Dioxide 30 mmol/L (22-32); Chloride 103 mmol/L (98-107); Estimated Glomerular Filt Rate > 60.0 mL/min (>60); Glucose 99 mg/dL (80-110); HEMOLYSIS < 15 (0-50); Potassium 4.3 mmol/L (3.4-5.1); Sodium 138 mmol/L (137-145)
== END ==
PROVIDERS: PCP Student in an Organized Health Care Education/Training Program; Referring Provider Internal Medicine Endocrinology, Diabetes & Metabolism; Visit Provider Internal Medicine Endocrinology, Diabetes & Metabolism
DX: E21.3 Hyperparathyroidism, unspecified (principal)
CPT/HCPCS: 36415; 80048

== ENCOUNTER → 2020-07-05 16:45 | Outpatient (CLI) | payer OTHER, SELFPAY ==
[2020-07-06 14:22] LABS: Calcium 10.5 mg/dL (8.6-10.2); Parathyroid Hormone, Intact 83 pg/mL (15-65)
== END ==
PROVIDERS: PCP Student in an Organized Health Care Education/Training Program; Referring Provider Student in an Organized Health Care Education/Training Program; Visit Provider Student in an Organized Health Care Education/Training Program
DX: E21.3 Hyperparathyroidism, unspecified (principal); N20.0 Calculus of kidney
CPT/HCPCS: 36415; 82310; 83970

== ENCOUNTER → 2020-07-11 10:03 | Outpatient (CLI) | payer MEDICARE, SELFPAY ==
[2020-07-11] MEDS: COVID-19 VACC #1, MRNA(MOD) 100 MCG/0.5 ML VIAL IM (10:14)
== END ==
PROVIDERS: PCP Student in an Organized Health Care Education/Training Program; Visit Provider Internal Medicine
DX: Z23 Encounter for immunization (principal)
CPT/HCPCS: 0011A; 91301

== ENCOUNTER → 2020-08-08 09:49 | Outpatient (CLI) | payer MEDICARE, SELFPAY ==
[2020-08-08] MEDS: COVID-19 VACC #2, MRNA(MOD) 100 MCG/0.5 ML VIAL IM (10:01)
== END ==
PROVIDERS: PCP Student in an Organized Health Care Education/Training Program; Visit Provider Internal Medicine
DX: Z23 Encounter for immunization (principal)
CPT/HCPCS: 0012A; 91301

== ENCOUNTER → 2021-03-18 16:16 | Outpatient (CLI) | payer OTHER, SELFPAY ==
--- NOTE | 2021-03-18 16:18 | DI.RAD.S_ITS ---
PROCEDURE: XR TIBIA FUBULA RT 2V INDICATIONS: Fall, leg pain TECHNIQUE: 2 views of the tibia and fibula were acquired. COMPARISON: None. FINDINGS: Bones: No fractures or dislocations. No suspicious bony lesions. A fabella is seen. Soft tissues: No suspicious soft tissue calcifications or masses. IMPRESSION: No acute abnormality. Dictated by: Umair Machado M.D. on 03/18/2021 at 16:47 Approved by: Umair Machado M.D. on 03/18/2021 at 16:48
== END ==
PROVIDERS: PCP Student in an Organized Health Care Education/Training Program; Referring Provider Student in an Organized Health Care Education/Training Program; Visit Provider Student in an Organized Health Care Education/Training Program
DX: M79.661 Pain in right lower leg (principal)
CPT/HCPCS: 73590

== ENCOUNTER → 2021-04-03 14:10 | Outpatient (CLI) | payer OTHER, SELFPAY ==
--- NOTE | 2021-04-03 14:19 | DI.RAD.S_ITS ---
PROCEDURE: XR DEXA AXIAL SKELETON INDICATIONS: Osteoporosis monitoring COMPARISON: [facility], CR, XR DEXA AXIAL SKELETON, 04/12/2020, 9:53. FINDINGS: This blank DEXA report has been sent in error by the PACS system. The correct and complete report will be forthcoming in 1-2 days. Thank you for your patience and understanding. Dictated by: Francesca Morris MD, PhD on 04/03/2021 at 15:55 Approved by: Francesca Morris MD, PhD on 04/03/2021 at 15:55
--- NOTE | 2021-04-03 14:19 | DI.RAD.S_ITS ---
PROCEDURE: XR KUB INDICATIONS: kidney stones TECHNIQUE: One view of the abdomen acquired. COMPARISON: [facility], CR, XR KUB, 02/09/2020, 11:10. FINDINGS: Surgical changes and devices: None. Bowel: Bowel gas pattern is normal. Soft tissues: Small ill-defined calcification is noted in left renal fossa measures approximately 5 mm in size which may represent a left-sided renal calculus. Possible faint 3 mm right renal calcification is also seen. Visualized solid organ contours appear normal in size. Bones: No suspicious bony lesions. Mild rightward curvature of lumbar spine is seen centered at L2 level. IMPRESSION: Finding may represent a small 5 mm left renal calculus. Possible 3 mm faint right renal calcification. No bowel obstruction or gross free air. Dictated by: Martínez Puga M.D. on 04/03/2021 at 15:28 Approved by: Martínez Puga M.D. on 04/03/2021 at 15:29
[2021-04-03 15:39] LABS: Alanine Aminotransferase 17 IU/L (<50); Albumin 4.3 g/dL (3.5-5.0); Albumin Globulin Ratio 1.6 (1.0-2.8); Alkaline Phosphatase 46 U/L (38-126); Aspartate Aminotransferase 25 IU/L (17-59); BUN Creatinine Ratio 18.1 (6-22); Bilirubin Total 0.7 mg/dL (0.2-1.3); Blood Urea Nitrogen 19 mg/dL (9-20); Calcium 10.8 mg/dL (8.4-10.2); Carbon Dioxide 30 mmol/L (22-32); Chloride 102 mmol/L (98-107); Estimated Glomerular Filt Rate > 60.0 mL/min (>60); Globulin 2.7 g/dL (1.7-4.1); Glucose 97 mg/dL (80-110); HEMOLYSIS < 15 (0-50); Phosphorous 3.6 mg/dL (2.3-3.7); Potassium 4.7 mmol/L (3.4-5.1); Sodium 138 mmol/L (137-145)
[2021-04-03 16:04] LABS: Prostate Specific Antigen 2.83 ng/mL (0.10-4.00)
[2021-04-03 19:43] LABS: Vitamin D 25 Hydroxy (D3) 37.2 ng/mL (30.0-100.0)
[2021-04-04 09:06] LABS: Parathyroid Hormone Int 81 pg/mL (15-65)
[2021-04-04 17:26] LABS: HIV 1 & 2 Ab/Ag 4th Gen Combo NEGATIVE (NEGATIVE)
== END ==
PROVIDERS: PCP Student in an Organized Health Care Education/Training Program; Referring Provider Specialist; Visit Provider Student in an Organized Health Care Education/Training Program
DX: M81.0 Age-related osteoporosis without current pathological fracture (principal); E21.3 Hyperparathyroidism, unspecified; N20.0 Calculus of kidney; R97.20 Elevated prostate specific antigen [PSA]; Z79.899 Other long term (current) drug therapy; Z20.6 Contact with and (suspected) exposure to human immunodeficiency virus [HIV]
CPT/HCPCS: 36415; 74018; 77080; 80053; 82306; 83970; 84100; 84153; 87389

== ENCOUNTER → 2021-04-17 10:10 | Outpatient (CLI) | payer OTHER, SELFPAY ==
[2021-04-17 11:49] LABS: Calcium 24 Hour Urine 258 mg/day (100-300); Calcium Urine Random 16.1 mg/dL; Collection Time Urine 24 Hours; Total Volume Urine 1600 mL
[2021-04-17 11:51] LABS: Collection Time Urine 24 Hours; Creatinine 24 Hour Urine 1224 mg/day (1000-2000); Creatinine Urine Random 76.5 mg/dL; Total Volume Urine 1600 mL
== END ==
PROVIDERS: Internal Medicine Endocrinology, Diabetes & Metabolism; PCP Student in an Organized Health Care Education/Training Program; Referring Provider Student in an Organized Health Care Education/Training Program; Visit Provider Student in an Organized Health Care Education/Training Program
DX: E21.3 Hyperparathyroidism, unspecified (principal)
CPT/HCPCS: 36415; 82340; 82570

== ENCOUNTER 2021-07-01 17:11 | Emergency (ER) | payer OTHER, SELFPAY ==
[2021-07-01 17:31] VITALS: BP 147/73; PULSE 87; RESP 16; TEMP 36.5; O2SAT 96; BMI 24.0
--- NOTE | 2021-07-01 20:57 | PC.NURSE ---
not in wr when called
== END 2021-07-01 20:55 | disposition left against medical advice (07) ==
PROVIDERS: Emergency Provider Emergency Medicine; Family Provider Student in an Organized Health Care Education/Training Program; PCP Student in an Organized Health Care Education/Training Program
DX: Z53.21 Procedure and treatment not carried out due to patient leaving prior to being seen by health care provider (principal)
CPT/HCPCS: 99281

== ENCOUNTER 2021-07-17 10:30 | Outpatient (RCR) | payer OTHER, SELFPAY ==
--- NOTE | 2021-05-08 15:42 | PT.OIE ---
Current Diagnoses Pain in right shoulder (05/08/21) Pain in left shoulder (05/08/21) Pain in left hip (05/08/21) Past Medical History (Last Updated 04/01/21 @ 08:13 by Syed Pacheco MD) Abnormal digital rectal exam Arthritis BPH (benign prostatic hyperplasia) Chicken pox Eczema Elevated PSA Fractures (~2018) GERD (gastroesophageal reflux disease) H/O breast biopsy H/O left inguinal hernia repair H/O lithotripsy Hearing loss Hemorrhoid High grade prostatic intraepithelial neoplasia History of cataract removal with insertion of prosthetic lens History of hernia repair History of nephrolithiasis History of recurrent ear infection History of thyroid surgery History of tonsillectomy and adenoidectomy History of transurethral resection of prostate Hx of tonsillectomy Hyperparathyroidism Hyperthyroidism Kidney stones Migraines (~2019) Mumps Osteoporosis Rubella S/P excision of thyroid adenoma (~2005) S/P TURP TIA (transient ischemic attack) (~01/2019) Tinnitus Past Surgical History (Last Reviewed 02/15/20 @ 10:27 by Antonio Couletr MD) Anesthesia H/O breast biopsy H/O left inguinal hernia repair H/O lithotripsy History of cataract removal with insertion of prosthetic lens History of hernia repair History of thyroid surgery History of tonsillectomy and adenoidectomy History of transurethral resection of prostate Hx of tonsillectomy S/P excision of thyroid adenoma (~2005) S/P TURP Visit Care Team Role Provider Type Syed Pacheco MD Attending Provider Physician Family Provider Primary Care Provider Referring Provider Specialty: Internal Medicine Address: [address] [place] [address], [facility] Email: [email or web address] Physical Therapy Initial Evaluation PT-OP-A Visit Information Start: 05/02/21 13:00 Freq: Status: Active Protocol: Document 05/08/21 09:45 AMB (Rec: 05/08/21 14:25 AMB [id number]) Out-Patient Physical Therapy Visit Information Visit Information Visit Type Initial Evaluation Visit Start Time 09:45 Visit Stop Time 10:30 Total Visit Minutes 45 Visit Number 1 PT-OP-B Current Condition Start: 05/02/21 13:00 Freq: Status: Active Protocol: Document 05/08/21 09:52 AMB (Rec: 05/08/21 10:36 AMB [id number]) Current Condition History of Current Condition Onset Date chronic Current Complaints bilateral shoulder, back/hip pain History of Current Condition Jatin states he is concerned his medication is contributing to his pain. He also reports 1 fall in the last 6 months. Stairs can be challenging in the quads. 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 Loves to garden/ [employer]. Lives on [facility]- is afraid of falling. 5 years ago. Is taking reclast for low bone density due to hyperparathyroidism and concerned about that. Has had previous PT for shoulders. Prior Treatments and Tests PT for neck and shoulders in 2017, hasn't kept up with exercises, but does stretch calves and do biceps curls Treatment Goals Patient/Caregiver Goals Reduce pain, exercise routine Prior Functional Status Baseline Function- ADL's Independent Baseline Function- Mobility Independent Current Functional Impairments (Reported) Functional Limitations- ADL's Lifting arms above shoulder height, extended sitting Personal Factors Other Personal Factors That May Effect Hyperparathyroidism Therapy/Recovery PT-OP-C Subjective Start: 05/02/21 13:00 Freq: Status: Active Protocol: Document 05/08/21 09:45 AMB (Rec: 05/08/21 15:06 AMB [id number]) Patient Questionnaires Lower Extremity Functional Scale LEFS Score 54 LEFS Impairment 20 to 39% Impaired (Score 48- 62) Quick Dash- Upper Extremity Quick Dash UE Score 23 Quick Dash UE Impairment 20 to 39% Impaired (Score 20- 39) PT-OP-D Balance Start: 05/02/21 13:00 Freq: Status: Active Protocol: Document 05/08/21 09:45 AMB (Rec: 05/08/21 15:27 AMB [id number]) OP-PT Balance Assessment Standing Balance Standing Balance Comments NBOS EC 5 seconds, denies dizziness with HT, but prefers WBOS Arora Fall Scale Copyright Permission PT-OP-G Mobility & Gait Start: 05/02/21 13:00 Freq: Status: Active Protocol: Document 05/08/21 09:45 AMB (Rec: 05/08/21 15:27 AMB [id number]) OP Gait Assessment Comments Gait Comments Jatin ambulates without AD with reduced trunk rotation and slightly increased WBOS PT-OP-J Posture/Palpation/Skin Start: 05/02/21 13:00 Freq: Status: Active Protocol: Document 05/08/21 09:45 AMB (Rec: 05/08/21 15:27 AMB [id number]) Posture Evaluation Comments Posture Comments Thoracic kyphosis PT-OP-K Range of Motion Start: 05/02/21 13:00 Freq: Status: Active Protocol: Document 05/08/21 09:45 AMB (Rec: 05/08/21 15:27 AMB [id number]) Shoulder Goniometric Range of Motion Shoulder Right Passive Flexion 145 Abduction 145 Left Passive Testing Position Supine Flexion 150 PT-OP-M Strength Start: 05/02/21 13:00 Freq: Status: Active Protocol: Document 05/08/21 09:45 AMB (Rec: 05/08/21 15:27 AMB [id number]) Shoulder Strength Shoulder Manual Muscle Testing Right External Rotation 3 Fair Internal Rotation 4 Good Left External Rotation 3 Fair Internal Rotation 4 Good Knee Strength Knee Manual Muscle Testing Right Flexion (S2) 4+ Good+ Extension (L3) 4+ Good+ Left Flexion (S2) 4+ Good+ Extension (L3) 4+ Good+ PT-OP-Q Treatments Start: 05/02/21 13:00 Freq: Status: Active Protocol: Document 05/08/21 09:45 AMB (Rec: 05/08/21 15:27 AMB [id number]) Therapeutic Exercises Sitting Exercises 1 Sitting Exercise Name t band #1 ER Side bilateral Reps/Minutes 10 PT-OP-T Assessment and Plan Start: 05/02/21 13:00 Freq: Status: Active Protocol: Document 05/08/21 09:45 AMB (Rec: 05/08/21 15:39 AMB [id number]) Physical Therapy Assessment Rehab Potential Rehabilitation Potential Good Evaluation Complexity Number of Personal Factors/Comorbidities 1-2 Number of Body Systems Impaired 4 or More Clinical Presentation at Evaluation Evolving Impairments Impairments Functional Activities,Pain, Posture,ROM,Strength Goals Two Impairment Back/legs Short Term Goal (STG) Jatin will sit for an hour without low back pain. STG Duration 4 weeks Die Developer Goal (LTG) Jatin will walk in his garden for 1 hour without low back/ hip pain. LTG Duration 8 weeks One Impairment Shoulders Short Term Goal (STG) Jatin will be independent with a HEP to improve his shoulder strength. STG Duration 4 weeks Die Developer Goal (LTG) Jatin will improve his shoulder strength so he can lift his arm to 90 degrees without pain. LTG Duration 8 weeks Assessment Summary Assessment Jatin attends physical therapy with a host of concerns. His primary concerns are his bilateral shoulder pain with reaching to shoulder height and his back/ hip pain with sitting. He attributes this to his hyperparathyroidism and the treatment for that. He has been instructed in physical therapy previously (5 years ago) but admits he is not currently exercising and doesn 't know what would be appropriate for him to do at this point. He does have a fall history, but it sounds like 1 fall in the last 6 months. He does have a distant history of rotator cuff pathology, and that is likely a contributing factor to his current shoulder dysfunction. He will benefit from physical therapy to instruct him in an appropriate exercise program to decrease his chronic pain complaints. Physical Therapy Plan Frequency and Duration Frequency of Treatment 2x/Week Duration of Treatment 6 weeks Plan of Care Start Date 05/08/21 Plan of Care End Date 06/19/21 Therapeutic Interventions Therapeutic Interventions Home Exercise Program,Manual Therapy,Neuromuscular Re- education,Self-Care/Home Management,Therapeutic Activities,Therapeutic Exercises Modalities Cold Pack/Ice Massage,Electric Stimulation,Hot Packs Next Visit Focus/Plan Next Note Type Treatment Note Next Visit Plan establish HEP for shoulders/ back/hips
--- NOTE | 2021-05-08 15:43 | PT.OPPOC ---
Physical, Occupational & Speech Therapy At [facility] Current Diagnoses Pain in right shoulder (05/08/21) Pain in left shoulder (05/08/21) Pain in left hip (05/08/21) Visit Care Team Role Provider Type Syed Pacheco MD Attending Provider Physician Family Provider Primary Care Provider Referring Provider Specialty: Internal Medicine Address: [address] [place] [address], [address], [facility] Email: [email or web address] Plan Of Care PT-OP-T Assessment and Plan Start: 05/02/21 13:00 Freq: Status: Active Protocol: Document 05/08/21 09:45 AMB (Rec: 05/08/21 15:39 AMB [id number]) Physical Therapy Assessment Rehab Potential Rehabilitation Potential Good Evaluation Complexity Number of Personal Factors/Comorbidities 1-2 Number of Body Systems Impaired 4 or More Clinical Presentation at Evaluation Evolving Impairments Impairments Functional Activities,Pain, Posture,ROM,Strength Goals Two Impairment Back/legs Short Term Goal (STG) Jatin will sit for an hour without low back pain. STG Duration 4 weeks Senior Care Goal (LTG) Jatin will walk in his garden for 1 hour without low back/ hip pain. LTG Duration 8 weeks One Impairment Shoulders Short Term Goal (STG) Jatin will be independent with a HEP to improve his shoulder strength. STG Duration 4 weeks Senior Care Goal (LTG) Jatin will improve his shoulder strength so he can lift his arm to 90 degrees without pain. LTG Duration 8 weeks Assessment Summary Assessment Jatin attends physical therapy with a host of concerns. His primary concerns are his bilateral shoulder pain with reaching to shoulder height and his back/ hip pain with sitting. He attributes this to his hyperparathyroidism and the treatment for that. He has been instructed in physical therapy previously (5 years ago) but admits he is not currently exercising and doesn 't know what would be appropriate for him to do at this point. He does have a fall history, but it sounds like 1 fall in the last 6 months. He does have a distant history of rotator cuff pathology, and that is likely a contributing factor to his current shoulder dysfunction. He will benefit from physical therapy to instruct him in an appropriate exercise program to decrease his chronic pain complaints. Physical Therapy Plan Frequency and Duration Frequency of Treatment 2x/Week Duration of Treatment 6 weeks Plan of Care Start Date 05/08/21 Plan of Care End Date 06/19/21 Therapeutic Interventions Therapeutic Interventions Home Exercise Program,Manual Therapy,Neuromuscular Re- education,Self-Care/Home Management,Therapeutic Activities,Therapeutic Exercises Modalities Cold Pack/Ice Massage,Electric Stimulation,Hot Packs Next Visit Focus/Plan Next Note Type Treatment Note Next Visit Plan establish HEP for shoulders/ back/hips Plan of Care Dates Plan of Care Start Date 05/08/21 Plan of Care End Date 06/19/21 Electronically Signed by: Hyacinth You, PT 05/08/21 [id number] Please Sign and Return: I have reviewed this Plan of Care and certify that the skilled therapy services above are required to meet the patient?s needs. Physician Signature Date Printed Name and Credentials Clinical Instructor Signature Printed Name and Credentials
--- NOTE | 2021-05-10 12:02 | PT.OTN ---
Current Diagnoses Pain in right shoulder (05/10/21) Pain in left shoulder (05/10/21) Pain in left hip (05/10/21) Physical Therapy Treatment Note PT-OP-A Visit Information Start: 05/02/21 13:00 Freq: Status: Active Protocol: Document 05/10/21 09:45 AMB (Rec: 05/10/21 10:21 AMB [id number]) Out-Patient Physical Therapy Visit Information Visit Information Visit Type Treatment Note Visit Start Time 09:45 Visit Stop Time 10:30 Total Visit Minutes 45 Visit Number 2 PT-OP-B Current Condition Start: 05/02/21 13:00 Freq: Status: Active Protocol: Document 05/08/21 09:52 AMB (Rec: 05/08/21 10:36 AMB [id number]) Current Condition History of Current Condition Onset Date chronic Current Complaints bilateral shoulder, back/hip pain History of Current Condition Jatin states he is concerned his medication is contributing to his pain. He also reports 1 fall in the last 6 months. Stairs can be challenging in the quads. 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 Loves to [employer]/ [employer]. Lives on [facility]- is afraid of falling. 5 years ago. Is taking reclast for low bone density due to hyperparathyroidism and concerned about that. Has had previous PT for shoulders. Prior Treatments and Tests PT for neck and shoulders in 2017, hasn't kept up with exercises, but does stretch calves and do biceps curls Treatment Goals Patient/Caregiver Goals Reduce pain, exercise routine Prior Functional Status Baseline Function- ADL's Independent Baseline Function- Mobility Independent Current Functional Impairments (Reported) Functional Limitations- ADL's Lifting arms above shoulder height, extended sitting Personal Factors Other Personal Factors That May Effect Hyperparathyroidism Therapy/Recovery PT-OP-C Subjective Start: 05/02/21 13:00 Freq: Status: Active Protocol: Document 05/10/21 09:45 AMB (Rec: 05/10/21 10:21 AMB [id number]) OP-PT Subjective Patient Comments Patient Comments Newton reports continued fatigue in R quadriceps and bilateral shoulders. PT-OP-D Balance Start: 05/02/21 13:00 Freq: Status: Active Protocol: Document 05/08/21 09:45 AMB (Rec: 05/08/21 15:27 AMB [id number]) OP-PT Balance Assessment Standing Balance Standing Balance Comments NBOS EC 5 seconds, denies dizziness with HT, but prefers WBOS Arora Fall Scale Copyright Permission PT-OP-G Mobility & Gait Start: 05/02/21 13:00 Freq: Status: Active Protocol: Document 05/08/21 09:45 AMB (Rec: 05/08/21 15:27 AMB [id number]) OP Gait Assessment Comments Gait Comments Jatin ambulates without AD with reduced trunk rotation and slightly increased WBOS PT-OP-J Posture/Palpation/Skin Start: 05/02/21 13:00 Freq: Status: Active Protocol: Document 05/08/21 09:45 AMB (Rec: 05/08/21 15:27 AMB [id number]) Posture Evaluation Comments Posture Comments Thoracic kyphosis PT-OP-K Range of Motion Start: 05/02/21 13:00 Freq: Status: Active Protocol: Document 05/08/21 09:45 AMB (Rec: 05/08/21 15:27 AMB [id number]) Shoulder Goniometric Range of Motion Shoulder Right Passive Flexion 145 Abduction 145 Left Passive Testing Position Supine Flexion 150 PT-OP-M Strength Start: 05/02/21 13:00 Freq: Status: Active Protocol: Document 05/08/21 09:45 AMB (Rec: 05/08/21 15:27 AMB [id number]) Shoulder Strength Shoulder Manual Muscle Testing Right External Rotation 3 Fair Internal Rotation 4 Good Left External Rotation 3 Fair Internal Rotation 4 Good Knee Strength Knee Manual Muscle Testing Right Flexion (S2) 4+ Good+ Extension (L3) 4+ Good+ Left Flexion (S2) 4+ Good+ Extension (L3) 4+ Good+ PT-OP-Q Treatments Start: 05/02/21 13:00 Freq: Status: Active Protocol: Document 05/10/21 09:45 AMB (Rec: 05/10/21 10:21 AMB [id number]) Cardio Equipment Recumbent Elliptical (Biodex) Duration (Minutes) 6 Resistance 5 Other lumbar pillow Gym Equipment Shuttle Recovery Bilateral Squats Resistance 50# Shuttle Recovery Platform Stable Reps/Time 2x10 Therapeutic Exercises Standing Exercises 4 Standing Exercise Name sidestepping Comments at railing yellow band 3 Standing Exercise Name squats Comments at railing 2 Standing Exercise Name ER Reps/Minutes 2x10 Comments #1 t band, then isometrics 1 Standing Exercise Name rows- tband Resistance #2 Reps/Minutes 2x10 PT-OP-T Assessment and Plan Start: 05/02/21 13:00 Freq: Status: Active Protocol: Document 05/10/21 09:45 AMB (Rec: 05/10/21 12:02 AMB [id number]) Physical Therapy Assessment Assessment Summary Assessment Jatin tolerated all exercises well, although did complain of SOB exacerbated by his mask with cardio. He does feel that he has an intermittent feeling of his leg giving way, worst on his L medial knee. Physical Therapy Plan Next Visit Focus/Plan Next Note Type Treatment Note Next Visit Plan establish HEP for shoulders/ back/hips- follow up on shoulder ER and squats.
--- NOTE | 2021-05-14 16:18 | PT.OTN ---
Current Diagnoses Pain in right shoulder (05/14/21) Pain in left shoulder (05/14/21) Pain in left hip (05/14/21) Physical Therapy Treatment Note PT-OP-A Visit Information Start: 05/02/21 13:00 Freq: Status: Active Protocol: Document 05/14/21 14:30 AMB (Rec: 05/14/21 15:42 AMB [id number]) Out-Patient Physical Therapy Visit Information Visit Information Visit Type Treatment Note Visit Start Time 14:30 Visit Stop Time 15:15 Total Visit Minutes 45 Visit Number 3 PT-OP-B Current Condition Start: 05/02/21 13:00 Freq: Status: Active Protocol: Document 05/08/21 09:52 AMB (Rec: 05/08/21 10:36 AMB [id number]) Current Condition History of Current Condition Onset Date chronic Current Complaints bilateral shoulder, back/hip pain History of Current Condition Jatin states he is concerned his medication is contributing to his pain. He also reports 1 fall in the last 6 months. Stairs can be challenging in the quads. 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 Loves to [place]/ [place]. Lives on [facility]- is afraid of falling. 5 years ago. Is taking reclast for low bone density due to hyperparathyroidism and concerned about that. Has had previous PT for shoulders. Prior Treatments and Tests PT for neck and shoulders in 2017, hasn't kept up with exercises, but does stretch calves and do biceps curls Treatment Goals Patient/Caregiver Goals Reduce pain, exercise routine Prior Functional Status Baseline Function- ADL's Independent Baseline Function- Mobility Independent Current Functional Impairments (Reported) Functional Limitations- ADL's Lifting arms above shoulder height, extended sitting Personal Factors Other Personal Factors That May Effect Hyperparathyroidism Therapy/Recovery PT-OP-C Subjective Start: 05/02/21 13:00 Freq: Status: Active Protocol: Document 05/14/21 14:30 AMB (Rec: 05/14/21 15:42 AMB [id number]) OP-PT Subjective Patient Comments Patient Comments Newton left his exercises here last time. Overall he reports painful arc in bilateral shoulder today. PT-OP-D Balance Start: 05/02/21 13:00 Freq: Status: Active Protocol: Document 05/08/21 09:45 AMB (Rec: 05/08/21 15:27 AMB [id number]) OP-PT Balance Assessment Standing Balance Standing Balance Comments NBOS EC 5 seconds, denies dizziness with HT, but prefers WBOS Arora Fall Scale Copyright Permission PT-OP-G Mobility & Gait Start: 05/02/21 13:00 Freq: Status: Active Protocol: Document 05/08/21 09:45 AMB (Rec: 05/08/21 15:27 AMB [id number]) OP Gait Assessment Comments Gait Comments Jatin ambulates without AD with reduced trunk rotation and slightly increased WBOS PT-OP-J Posture/Palpation/Skin Start: 05/02/21 13:00 Freq: Status: Active Protocol: Document 05/08/21 09:45 AMB (Rec: 05/08/21 15:27 AMB [id number]) Posture Evaluation Comments Posture Comments Thoracic kyphosis PT-OP-K Range of Motion Start: 05/02/21 13:00 Freq: Status: Active Protocol: Document 05/08/21 09:45 AMB (Rec: 05/08/21 15:27 AMB [id number]) Shoulder Goniometric Range of Motion Shoulder Right Passive Flexion 145 Abduction 145 Left Passive Testing Position Supine Flexion 150 PT-OP-M Strength Start: 05/02/21 13:00 Freq: Status: Active Protocol: Document 05/08/21 09:45 AMB (Rec: 05/08/21 15:27 AMB [id number]) Shoulder Strength Shoulder Manual Muscle Testing Right External Rotation 3 Fair Internal Rotation 4 Good Left External Rotation 3 Fair Internal Rotation 4 Good Knee Strength Knee Manual Muscle Testing Right Flexion (S2) 4+ Good+ Extension (L3) 4+ Good+ Left Flexion (S2) 4+ Good+ Extension (L3) 4+ Good+ PT-OP-Q Treatments Start: 05/02/21 13:00 Freq: Status: Active Protocol: Document 05/14/21 14:30 AMB (Rec: 05/14/21 16:11 AMB [id number]) Therapeutic Exercises Sitting Exercises christy Reps/Minutes 20 ea Comments fwd, scaption Standing Exercises shoulder stretch Standing Exercise Name at railing/table, shoulder flexion Reps/Minutes 30x2 3 Standing Exercise Name squats- mini Comments at railing 1 Standing Exercise Name rows- tband Resistance #2 Reps/Minutes 2x10 PT-OP-T Assessment and Plan Start: 05/02/21 13:00 Freq: Status: Active Protocol: Document 05/14/21 14:30 AMB (Rec: 05/14/21 15:42 AMB [id number]) Physical Therapy Assessment Goals Two Impairment Back/legs Short Term Goal (STG) Jatin will sit for an hour without low back pain. STG Duration 4 weeks Care Home Goal (LTG) Jatin will walk in his garden for 1 hour without low back/ hip pain. LTG Duration 8 weeks One Impairment Shoulders Short Term Goal (STG) Jatin will be independent with a HEP to improve his shoulder strength. STG Duration 4 weeks On Site Nurse Goal (LTG) Jatin will improve his shoulder strength so he can lift his arm to 90 degrees without pain. LTG Duration 8 weeks Assessment Summary Assessment Began discussing body mechanics given pt's hyperparathyroidism relate bone loss, trying to avoid bend/lift/twist in garden. Newton is fairly hyperverbal and does repeat his medical history multiple times, but is very willing to exercise. Physical Therapy Plan Next Visit Focus/Plan Next Note Type Treatment Note Next Visit Plan Next visit: continue with pulleys, discuss body mechanics for pt's goal of gardening, continue RTC strengthening. Establish HEP for shoulders/ back/hips- current HEP t band ER/IR, squats, table shoulder flexion stretch. Focus so far has been shoulders and back.
--- NOTE | 2021-05-17 10:35 | PT.OTN ---
Current Diagnoses Pain in right shoulder (05/17/21) Pain in left shoulder (05/17/21) Pain in left hip (05/17/21) Physical Therapy Treatment Note PT-OP-A Visit Information Start: 05/02/21 13:00 Freq: Status: Active Protocol: Document 05/17/21 09:50 SP (Rec: 05/17/21 10:37 SP [id number]) Out-Patient Physical Therapy Visit Information Visit Information Visit Type Treatment Note Visit Start Time 09:50 Visit Stop Time 10:35 Total Visit Minutes 45 Visit Number 4 Number of LEAD PROJECT MANAGER Visits 1 PT-OP-B Current Condition Start: 05/02/21 13:00 Freq: Status: Active Protocol: Document 05/08/21 09:52 AMB (Rec: 05/08/21 10:36 AMB [id number]) Current Condition History of Current Condition Onset Date chronic Current Complaints bilateral shoulder, back/hip pain History of Current Condition Jatin states he is concerned his medication is contributing to his pain. He also reports 1 fall in the last 6 months. Stairs can be challenging in the quads. 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 Loves to garden/ [place]. Lives on [facility]- is afraid of falling. 5 years ago. Is taking reclast for low bone density due to hyperparathyroidism and concerned about that. Has had previous PT for shoulders. Prior Treatments and Tests PT for neck and shoulders in 2017, hasn't kept up with exercises, but does stretch calves and do biceps curls Treatment Goals Patient/Caregiver Goals Reduce pain, exercise routine Prior Functional Status Baseline Function- ADL's Independent Baseline Function- Mobility Independent Current Functional Impairments (Reported) Functional Limitations- ADL's Lifting arms above shoulder height, extended sitting Personal Factors Other Personal Factors That May Effect Hyperparathyroidism Therapy/Recovery PT-OP-C Subjective Start: 05/02/21 13:00 Freq: Status: Active Protocol: Document 05/17/21 09:50 SP (Rec: 05/17/21 10:37 SP [id number]) OP-PT Subjective Patient Comments Patient Comments Pt can be hyperverble with good feedback information, stated not give to many things to do and ex that will incorporate in day for successful. Pt reported he put heat on R shld, R hip/back to allow decreased pain and helped alot. Pt asked if is an ointment can use to help shld feel better? Pt reports sits at computer alot sometimes hrs and very stiff wondering if contributes to how feeling. PT-OP-D Balance Start: 05/02/21 13:00 Freq: Status: Active Protocol: Document 05/08/21 09:45 AMB (Rec: 05/08/21 15:27 AMB [id number]) OP-PT Balance Assessment Standing Balance Standing Balance Comments NBOS EC 5 seconds, denies dizziness with HT, but prefers WBOS Arora Fall Scale Copyright Permission PT-OP-G Mobility & Gait Start: 05/02/21 13:00 Freq: Status: Active Protocol: Document 05/08/21 09:45 AMB (Rec: 05/08/21 15:27 AMB [id number]) OP Gait Assessment Comments Gait Comments Jatin ambulates without AD with reduced trunk rotation and slightly increased WBOS PT-OP-J Posture/Palpation/Skin Start: 05/02/21 13:00 Freq: Status: Active Protocol: Document 05/08/21 09:45 AMB (Rec: 05/08/21 15:27 AMB [id number]) Posture Evaluation Comments Posture Comments Thoracic kyphosis PT-OP-K Range of Motion Start: 05/02/21 13:00 Freq: Status: Active Protocol: Document 05/08/21 09:45 AMB (Rec: 05/08/21 15:27 AMB [id number]) Shoulder Goniometric Range of Motion Shoulder Right Passive Flexion 145 Abduction 145 Left Passive Testing Position Supine Flexion 150 PT-OP-M Strength Start: 05/02/21 13:00 Freq: Status: Active Protocol: Document 05/08/21 09:45 AMB (Rec: 05/08/21 15:27 AMB [id number]) Shoulder Strength Shoulder Manual Muscle Testing Right External Rotation 3 Fair Internal Rotation 4 Good Left External Rotation 3 Fair Internal Rotation 4 Good Knee Strength Knee Manual Muscle Testing Right Flexion (S2) 4+ Good+ Extension (L3) 4+ Good+ Left Flexion (S2) 4+ Good+ Extension (L3) 4+ Good+ PT-OP-Q Treatments Start: 05/02/21 13:00 Freq: Status: Active Protocol: Document 05/17/21 09:50 SP (Rec: 05/17/21 10:37 SP [id number]) Therapeutic Exercises Sitting Exercises hip ER stretch Sitting Exercise Name added to HEP Side bilateral Equipment Used discussed perform at times during sitting at computer Reps/Minutes 30 x2 Comments good feedback performance- less stiffness scap retraction Sitting Exercise Name added to HEP Reps/Minutes 5 s x10 Comments cued tall posture, CS back neutral,no arch LB cervical rotation Sitting Exercise Name personal ROM doing check- painfree range, recheck for HEP next tx Side bilateral Reps/Minutes 3s hold x5 Comments cued tall posture, CS back to neutral alignement awareness, good feedback christy Sitting Exercise Name fwd, scaption- HEP review Reps/Minutes 20 ea Comments cued no UT tra Standing Exercises wall walking Standing Exercise Name trialed today little stitch felt at 80-90 deg- PT only at this time Side bilateral Reps/Minutes 3 reps Comments discomfort at 80-90 deg then able further ok, cued no UT recruit shoulder stretch Standing Exercise Name at railing/table, shoulder flexion Reps/Minutes 30x2 Comments good performance Self-Care/Home Management Treatment Education Patient Education Body Mechanics,Home Exercise Program,Posture Other Education Extra time spent on postural education awareness during HEP , improved awareness with use mirrror. Discussed performing ex between seated at computer to unwind forward posture. PT-OP-T Assessment and Plan Start: 05/02/21 13:00 Freq: Status: Active Protocol: Document 05/17/21 09:50 SP (Rec: 05/17/21 10:37 SP [id number]) Physical Therapy Assessment Goals Two Impairment Back/legs Short Term Goal (STG) Jatin will sit for an hour without low back pain. STG Duration 4 weeks Looper Operator Goal (LTG) Jatin will walk in his garden for 1 hour without low back/ hip pain. LTG Duration 8 weeks One Impairment Shoulders Short Term Goal (STG) Jatin will be independent with a HEP to improve his shoulder strength. STG Duration 4 weeks Residential Goal (LTG) Jatin will improve his shoulder strength so he can lift his arm to 90 degrees without pain. LTG Duration 8 weeks Assessment Summary Assessment Pt responded well to ther ex today. Cues for shld, neck and trunk postural alignment. Less discomfort christy AAROM BUE than assessment of wall walking. Pt states can make some pulleys for home to use. Improvement in decrease hip stiffness post initiated hip ER stretch. Physical Therapy Plan Frequency and Duration Frequency of Treatment 2x/Week Duration of Treatment 6 weeks Plan of Care Start Date 05/08/21 Plan of Care End Date 06/19/21 Therapeutic Interventions Therapeutic Interventions Home Exercise Program,Manual Therapy,Neuromuscular Re- education,Self-Care/Home Management,Therapeutic Activities,Therapeutic Exercises Modalities Cold Pack/Ice Massage,Electric Stimulation,Hot Packs Next Visit Focus/Plan Next Note Type Treatment Note Next Visit Plan Next visit: continue with pulleys, assess seated posture for computer and bending body mechanics for pt's goal of gardening, continue RTC strengthening. Establish HEP for shoulders/ back/hips- current HEP t band ER/IR, squats, table shoulder flexion stretch, hip ER stretch. Focus so far has been shoulders and back.
--- NOTE | 2021-05-21 12:00 | PT.OTN ---
Current Diagnoses Pain in right shoulder (05/21/21) Pain in left shoulder (05/21/21) Pain in left hip (05/21/21) Physical Therapy Treatment Note PT-OP-A Visit Information Start: 05/02/21 13:00 Freq: Status: Active Protocol: Document 05/21/21 09:45 AMB (Rec: 05/21/21 10:36 AMB [id number]) Out-Patient Physical Therapy Visit Information Visit Information Visit Type Treatment Note Visit Start Time 09:45 Visit Stop Time 10:30 Total Visit Minutes 45 Visit Number 5 PT-OP-B Current Condition Start: 05/02/21 13:00 Freq: Status: Active Protocol: Document 05/08/21 09:52 AMB (Rec: 05/08/21 10:36 AMB [id number]) Current Condition History of Current Condition Onset Date chronic Current Complaints bilateral shoulder, back/hip pain History of Current Condition Jatin states he is concerned his medication is contributing to his pain. He also reports 1 fall in the last 6 months. Stairs can be challenging in the quads. 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 Loves to [employer]/ [employer]. Lives on [facility]- is afraid of falling. 5 years ago. Is taking reclast for low bone density due to hyperparathyroidism and concerned about that. Has had previous PT for shoulders. Prior Treatments and Tests PT for neck and shoulders in 2017, hasn't kept up with exercises, but does stretch calves and do biceps curls Treatment Goals Patient/Caregiver Goals Reduce pain, exercise routine Prior Functional Status Baseline Function- ADL's Independent Baseline Function- Mobility Independent Current Functional Impairments (Reported) Functional Limitations- ADL's Lifting arms above shoulder height, extended sitting Personal Factors Other Personal Factors That May Effect Hyperparathyroidism Therapy/Recovery PT-OP-C Subjective Start: 05/02/21 13:00 Freq: Status: Active Protocol: Document 05/21/21 09:45 AMB (Rec: 05/21/21 12:00 AMB [id number]) OP-PT Subjective Patient Comments Patient Comments Pt states he worked out in the garden for about an hour and his left shoulder is sore now after raking. PT-OP-D Balance Start: 05/02/21 13:00 Freq: Status: Active Protocol: Document 05/08/21 09:45 AMB (Rec: 05/08/21 15:27 AMB [id number]) OP-PT Balance Assessment Standing Balance Standing Balance Comments NBOS EC 5 seconds, denies dizziness with HT, but prefers WBOS Arora Fall Scale Copyright Permission PT-OP-G Mobility & Gait Start: 05/02/21 13:00 Freq: Status: Active Protocol: Document 05/08/21 09:45 AMB (Rec: 05/08/21 15:27 AMB [id number]) OP Gait Assessment Comments Gait Comments Jatin ambulates without AD with reduced trunk rotation and slightly increased WBOS PT-OP-J Posture/Palpation/Skin Start: 05/02/21 13:00 Freq: Status: Active Protocol: Document 05/08/21 09:45 AMB (Rec: 05/08/21 15:27 AMB [id number]) Posture Evaluation Comments Posture Comments Thoracic kyphosis PT-OP-K Range of Motion Start: 05/02/21 13:00 Freq: Status: Active Protocol: Document 05/08/21 09:45 AMB (Rec: 05/08/21 15:27 AMB [id number]) Shoulder Goniometric Range of Motion Shoulder Right Passive Flexion 145 Abduction 145 Left Passive Testing Position Supine Flexion 150 PT-OP-M Strength Start: 05/02/21 13:00 Freq: Status: Active Protocol: Document 05/08/21 09:45 AMB (Rec: 05/08/21 15:27 AMB [id number]) Shoulder Strength Shoulder Manual Muscle Testing Right External Rotation 3 Fair Internal Rotation 4 Good Left External Rotation 3 Fair Internal Rotation 4 Good Knee Strength Knee Manual Muscle Testing Right Flexion (S2) 4+ Good+ Extension (L3) 4+ Good+ Left Flexion (S2) 4+ Good+ Extension (L3) 4+ Good+ PT-OP-Q Treatments Start: 05/02/21 13:00 Freq: Status: Active Protocol: Document 05/21/21 09:45 AMB (Rec: 05/21/21 12:00 AMB [id number]) Gym Equipment Shuttle Recovery Bilateral Squats Resistance 50# Shuttle Recovery Platform Stable Reps/Time 2x10 Therapeutic Exercises Sitting Exercises chin tuck Comments 5x5, cued feeling stretch levator scap stretch Side left Reps/Minutes 30x2 Comments see written HEP Standing Exercises wall walking Standing Exercise Name trialed today little stitch felt at 80-90 deg- PT only at this time Side bilateral Reps/Minutes 3 reps Comments discomfort at 80-90 deg then able further ok, cued no UT recruit shoulder stretch Standing Exercise Name at railing/table, shoulder flexion Reps/Minutes 30x2 Comments good performance 3 Standing Exercise Name wall squats Reps/Minutes 5x10 Comments cued knees behind toes, keep small Self-Care/Home Management Treatment Activities Self-Care/Home Management Activities set up of computer- sitting vs standing at counter, body mechanics of raking to take load off of L shoulder. PT-OP-T Assessment and Plan Start: 05/02/21 13:00 Freq: Status: Active Protocol: Document 05/21/21 09:45 AMB (Rec: 05/21/21 12:00 AMB [id number]) Physical Therapy Assessment Goals Two Impairment Back/legs Short Term Goal (STG) Jatin will sit for an hour without low back pain. STG Duration 4 weeks Skilled Nursing Goal (LTG) Jatin will walk in his garden for 1 hour without low back/ hip pain. LTG Duration 8 weeks One Impairment Shoulders Short Term Goal (STG) Jatin will be independent with a HEP to improve his shoulder strength. STG Duration 4 weeks Dining Chair Seat Cushion Trimmer Goal (LTG) Jatin will improve his shoulder strength so he can lift his arm to 90 degrees without pain. LTG Duration 8 weeks Assessment Summary Assessment Pt requests conceptual HEP stating that he would like to know what he needs to focus on and then he will feel in his body what his body needs. Focus of PT has been quad/glut strengthening, shoulder/neck ROM and RTC strengthening. Physical Therapy Plan Next Visit Focus/Plan Next Visit Plan Pt would like to be on hold after next appointment. He has been given handouts for his HEP for t band ER/IR shoulder, table shoulder flexion stretch, wall squats, chin tuck, levator scap stretch
--- NOTE | 2021-05-24 13:48 | PT.OTN ---
Current Diagnoses Pain in right shoulder (05/24/21) Pain in left shoulder (05/24/21) Pain in left hip (05/24/21) Physical Therapy Treatment Note PT-OP-A Visit Information Start: 05/02/21 13:00 Freq: Status: Active Protocol: Document 05/24/21 13:04 SP (Rec: 05/24/21 13:49 SP [id number]) Out-Patient Physical Therapy Visit Information Visit Information Visit Type Treatment Note Visit Start Time 13:04 Visit Stop Time 13:48 Total Visit Minutes 44 Visit Number 6 Number of DIETARY SERVICES MANAGER Visits 1 PT-OP-B Current Condition Start: 05/02/21 13:00 Freq: Status: Active Protocol: Document 05/08/21 09:52 AMB (Rec: 05/08/21 10:36 AMB [id number]) Current Condition History of Current Condition Onset Date chronic Current Complaints bilateral shoulder, back/hip pain History of Current Condition Jatin states he is concerned his medication is contributing to his pain. He also reports 1 fall in the last 6 months. Stairs can be challenging in the quads. 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 Loves to [employer]. Lives on [facility]- is afraid of falling. 5 years ago. Is taking reclast for low bone density due to hyperparathyroidism and concerned about that. Has had previous PT for shoulders. Prior Treatments and Tests PT for neck and shoulders in 2017, hasn't kept up with exercises, but does stretch calves and do biceps curls Treatment Goals Patient/Caregiver Goals Reduce pain, exercise routine Prior Functional Status Baseline Function- ADL's Independent Baseline Function- Mobility Independent Current Functional Impairments (Reported) Functional Limitations- ADL's Lifting arms above shoulder height, extended sitting Personal Factors Other Personal Factors That May Effect Hyperparathyroidism Therapy/Recovery PT-OP-C Subjective Start: 05/02/21 13:00 Freq: Status: Active Protocol: Document 05/24/21 13:04 SP (Rec: 05/24/21 13:49 SP [id number]) OP-PT Subjective Patient Comments Patient Comments Pt states feels good understanding with upper body exercises given but finding weakness in his legs, at times catches self almost buckling. Knows long distances tires them, wants to focus on legs at this time. Wants a report sent to Dr Mahogany with progress making in PT after next appt with PT also good time to review how doing with HEP, then take a break on own and come back in a month as a check up if need more suggestions to help at home on own. Has many other appts and wants to limit how much need to come in here. PT-OP-D Balance Start: 05/02/21 13:00 Freq: Status: Active Protocol: Document 05/08/21 09:45 AMB (Rec: 05/08/21 15:27 AMB [id number]) OP-PT Balance Assessment Standing Balance Standing Balance Comments NBOS EC 5 seconds, denies dizziness with HT, but prefers WBOS Arora Fall Scale Copyright Permission PT-OP-G Mobility & Gait Start: 05/02/21 13:00 Freq: Status: Active Protocol: Document 05/08/21 09:45 AMB (Rec: 05/08/21 15:27 AMB [id number]) OP Gait Assessment Comments Gait Comments Jatin ambulates without AD with reduced trunk rotation and slightly increased WBOS PT-OP-J Posture/Palpation/Skin Start: 05/02/21 13:00 Freq: Status: Active Protocol: Document 05/08/21 09:45 AMB (Rec: 05/08/21 15:27 AMB [id number]) Posture Evaluation Comments Posture Comments Thoracic kyphosis PT-OP-K Range of Motion Start: 05/02/21 13:00 Freq: Status: Active Protocol: Document 05/08/21 09:45 AMB (Rec: 05/08/21 15:27 AMB [id number]) Shoulder Goniometric Range of Motion Shoulder Right Passive Flexion 145 Abduction 145 Left Passive Testing Position Supine Flexion 150 PT-OP-M Strength Start: 05/02/21 13:00 Freq: Status: Active Protocol: Document 05/08/21 09:45 AMB (Rec: 05/08/21 15:27 AMB [id number]) Shoulder Strength Shoulder Manual Muscle Testing Right External Rotation 3 Fair Internal Rotation 4 Good Left External Rotation 3 Fair Internal Rotation 4 Good Knee Strength Knee Manual Muscle Testing Right Flexion (S2) 4+ Good+ Extension (L3) 4+ Good+ Left Flexion (S2) 4+ Good+ Extension (L3) 4+ Good+ PT-OP-Q Treatments Start: 05/02/21 13:00 Freq: Status: Active Protocol: Document 05/24/21 13:04 SP (Rec: 05/24/21 13:49 SP [id number]) Therapeutic Exercises Supine Exercises TA SLR Supine Exercise Name added to HEP Side bilateral Resistance AROM Equipment Used opposite LE bent Reps/Minutes x5 Comments cued TA, knee extension then lift tolerant range Sitting Exercises sit<>stands Sitting Exercise Name attempted for strengthening but irritated knees Reps/Minutes DC Comments cued hip hinge mechanics for knee and back health, still knee pain hip ER stretch Sitting Exercise Name added to HEP Side bilateral Equipment Used discussed perform at times during sitting at computer Reps/Minutes 30 x2 Comments good feedback performance- less stiffness Standing Exercises calf stretch Standing Exercise Name reviewed self HEP Side bilateral Equipment Used //bar (contact counter home) Reps/Minutes 30 x2 each LE Comments cued split stance not plank off counter for back health band walk Standing Exercise Name added to HEP Resistance Tb #1 loop Equipment Used trail foot clearance, contact counter Reps/Minutes 20 ft x2 laps Comments cued little bigger than normal step, tall posture w/ TA engagement 3 Standing Exercise Name wall squats- discussed not performed 2nd to pt states doing well with Reps/Minutes 5x10 Comments cued knees behind toes, keep small Self-Care/Home Management Treatment Education Patient Education Body Mechanics,Home Exercise Program,Posture,Safety Other Education DIETARY SERVICES MANAGER educated for safety is good for follow up appt after given new exercises to be sure working for him at home with carryover correction cues for good proper form for success. Pt understood and agreed to set up appt next week and a month from now if wishes see PT again before deciding DC, verbalized understanding. PT-OP-T Assessment and Plan Start: 05/02/21 13:00 Freq: Status: Active Protocol: Document 05/24/21 13:04 SP (Rec: 05/24/21 13:49 SP [id number]) Physical Therapy Assessment Goals Two Impairment Back/legs Short Term Goal (STG) Jatin will sit for an hour without low back pain. STG Duration 4 weeks Jail Goal (LTG) Jatin will walk in his garden for 1 hour without low back/ hip pain. LTG Duration 8 weeks One Impairment Shoulders Short Term Goal (STG) Jatin will be independent with a HEP to improve his shoulder strength. STG Duration 4 weeks Gunstock Repairer Goal (LTG) Jatin will improve his shoulder strength so he can lift his arm to 90 degrees without pain. LTG Duration 8 weeks Assessment Summary Assessment Pt reports doing well with all HEP given thus far with no pain. He responded well I can feel my muscles working, this will help, during LE strengthening initiated today: calf stretch, band walks, seated hip abd and supine TA SLR for improved stability for walking. Physical Therapy Plan Frequency and Duration Frequency of Treatment 2x/Week Duration of Treatment 6 weeks Plan of Care Start Date 05/08/21 Plan of Care End Date 06/19/21 Therapeutic Interventions Therapeutic Interventions Home Exercise Program,Manual Therapy,Neuromuscular Re- education,Self-Care/Home Management,Therapeutic Activities,Therapeutic Exercises Modalities Cold Pack/Ice Massage,Electric Stimulation,Hot Packs Next Visit Focus/Plan Next Visit Plan Pt would like to make more maybe 2 more appts, next week then 1 month from now. He has been given handouts for his HEP for t band ER/IR shoulder, table shoulder flexion stretch, wall squats, chin tuck, levator scap stretch, calf stretch, band walk, seated hip abd, TA SLR. Pt wants to have PT write a PN to Dr Vides on how progressing in PT for awareness
--- NOTE | 2021-05-29 15:43 | PT.OTN ---
Current Diagnoses Pain in right shoulder (05/29/21) Pain in left shoulder (05/29/21) Pain in left hip (05/29/21) Physical Therapy Treatment Note PT-OP-A Visit Information Start: 05/02/21 13:00 Freq: Status: Active Protocol: Document 05/29/21 14:30 AMB (Rec: 05/29/21 15:39 AMB [id number]) Out-Patient Physical Therapy Visit Information Visit Information Visit Type Treatment Note Visit Start Time 14:30 Visit Stop Time 15:15 Total Visit Minutes 45 Visit Number 7 PT-OP-B Current Condition Start: 05/02/21 13:00 Freq: Status: Active Protocol: Document 05/08/21 09:52 AMB (Rec: 05/08/21 10:36 AMB [id number]) Current Condition History of Current Condition Onset Date chronic Current Complaints bilateral shoulder, back/hip pain History of Current Condition Jatin states he is concerned his medication is contributing to his pain. He also reports 1 fall in the last 6 months. Stairs can be challenging in the quads. 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 Loves to [employer]. Lives on [facility]- is afraid of falling. 5 years ago. Is taking reclast for low bone density due to hyperparathyroidism and concerned about that. Has had previous PT for shoulders. Prior Treatments and Tests PT for neck and shoulders in 2017, hasn't kept up with exercises, but does stretch calves and do biceps curls Treatment Goals Patient/Caregiver Goals Reduce pain, exercise routine Prior Functional Status Baseline Function- ADL's Independent Baseline Function- Mobility Independent Current Functional Impairments (Reported) Functional Limitations- ADL's Lifting arms above shoulder height, extended sitting Personal Factors Other Personal Factors That May Effect Hyperparathyroidism Therapy/Recovery PT-OP-C Subjective Start: 05/02/21 13:00 Freq: Status: Active Protocol: Document 05/29/21 14:30 AMB (Rec: 05/29/21 15:39 AMB [id number]) OP-PT Subjective Patient Comments Patient Comments Pt reports he feels good with current HEP, needs about a month to set it up and see how he does with it. Going to be seeing customs opener verifier packer in 2 weeks. PT-OP-D Balance Start: 05/02/21 13:00 Freq: Status: Active Protocol: Document 05/08/21 09:45 AMB (Rec: 05/08/21 15:27 AMB [id number]) OP-PT Balance Assessment Standing Balance Standing Balance Comments NBOS EC 5 seconds, denies dizziness with HT, but prefers WBOS Arora Fall Scale Copyright Permission PT-OP-G Mobility & Gait Start: 05/02/21 13:00 Freq: Status: Active Protocol: Document 05/08/21 09:45 AMB (Rec: 05/08/21 15:27 AMB [id number]) OP Gait Assessment Comments Gait Comments Jatin ambulates without AD with reduced trunk rotation and slightly increased WBOS PT-OP-J Posture/Palpation/Skin Start: 05/02/21 13:00 Freq: Status: Active Protocol: Document 05/08/21 09:45 AMB (Rec: 05/08/21 15:27 AMB [id number]) Posture Evaluation Comments Posture Comments Thoracic kyphosis PT-OP-K Range of Motion Start: 05/02/21 13:00 Freq: Status: Active Protocol: Document 05/08/21 09:45 AMB (Rec: 05/08/21 15:27 AMB [id number]) Shoulder Goniometric Range of Motion Shoulder Right Passive Flexion 145 Abduction 145 Left Passive Testing Position Supine Flexion 150 PT-OP-M Strength Start: 05/02/21 13:00 Freq: Status: Active Protocol: Document 05/29/21 14:49 AMB (Rec: 05/29/21 14:57 AMB [id number]) Shoulder Strength Shoulder Manual Muscle Testing Right Flexion 3+ Fair+ Extension 4 Good Abduction (C5) 3 Fair External Rotation 3 Fair Internal Rotation 4 Good Left Flexion 3+ Fair+ Extension 4 Good Abduction (C5) 3 Fair External Rotation 3 Fair Internal Rotation 4 Good Hip Strength Hip Manual Muscle Testing Right Flexion (L2) 4 Good Extension (S1) 4 Good Abduction 4 Good Left Flexion (L2) 4 Good Extension (S1) 4 Good Abduction 4 Good PT-OP-Q Treatments Start: 05/02/21 13:00 Freq: Status: Active Protocol: Document 05/29/21 14:30 AMB (Rec: 05/29/21 15:39 AMB [id number]) Therapeutic Exercises Sitting Exercises christy Sitting Exercise Name fwd, scaption- HEP review Reps/Minutes 20 ea Comments reviewed HEP Standing Exercises calf stretch Standing Exercise Name reviewed self HEP Side bilateral Equipment Used //bar (contact counter home) Reps/Minutes 30 x2 each LE Comments reviewed HEP 4 Standing Exercise Name mini squats Reps/Minutes 5 Comments reviewed HEP Self-Care/Home Management Treatment Activities Self-Care/Home Management Activities discussed importance of continuing with current HEP and of pt concerns re pain caused by Reclast vs. old age vs chronic conditions. Likelihood of continuing pain, or working through pain in the fdc. PT-OP-T Assessment and Plan Start: 05/02/21 13:00 Freq: Status: Active Protocol: Document 05/29/21 14:36 AMB (Rec: 05/29/21 14:49 AMB [id number]) Physical Therapy Assessment Goals Two Impairment Back/legs Short Term Goal (STG) Jatin will sit for an hour without low back pain. STG Duration PARTIALLY MET Special Education Resource Teacher Goal (LTG) Jatin will walk in his garden for 1 hour without low back/ hip pain. LTG Duration MET One Impairment Shoulders Short Term Goal (STG) Jatin will be independent with a HEP to improve his shoulder strength. STG Duration MET Residential Goal (LTG) Jatin will improve his shoulder strength so he can lift his arm to 90 degrees without pain. LTG Duration Intermittently met- variable days Assessment Summary Assessment Pt concerned regarding getting notes to Dr Belkis Menendez at endocrinology. He continues to have pain at bilateral shoulders and low back/hips, with intermittent knees giving way R>L and is concerned about if this could be related to Reclast. Pt continues to note pain with lifting items up onto the shelves with the shoulders, otherwise pain is variable, sometimes limits and sometimes not as much. He is doing is HEP throughout the day. He continues to have significant shoulder weakness probably related to old rotator cuff injury/ osteoarthritis. 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 Physical Therapy Plan Hold Physical Therapy Reason For Hold Pt request- follow up in one month to assess pain and adherence to current HEP
--- NOTE | 2021-07-10 12:00 | PT.OPPOC ---
Physical, Occupational & Speech Therapy At [facility] Current Diagnoses Pain in right shoulder (07/10/21) Pain in left shoulder (07/10/21) Pain in left hip (07/10/21) Visit Care Team Role Provider Type Syed Pacheco MD Attending Provider Physician Family Provider Primary Care Provider Referring Provider Specialty: Internal Medicine Address: [address] [place] [address], [address], [facility] Email: [email or web address] Plan Of Care PT-OP-T Assessment and Plan Start: 05/02/21 13:00 Freq: Status: Active Protocol: Document 07/10/21 11:18 AMB (Rec: 07/10/21 11:52 AMB [id number]) Physical Therapy Assessment Goals Two Impairment Back/legs Short Term Goal (STG) Jatin will sit for an hour without low back pain. STG Duration PARTIALLY MET Nursing Home Goal (LTG) Jatin will walk in his garden for 1 hour without low back/ hip pain. LTG Duration MET One Impairment Shoulders Short Term Goal (STG) Jatin will be independent with a HEP to improve his shoulder strength. STG Duration MET Nursing Home Goal (LTG) Jatin will improve his shoulder strength so he can lift his arm to 90 degrees without pain. LTG Duration Intermittently met- variable days Assessment Summary Assessment Newton returns to PT after a month break. We spent a significant time on his home exercises. He is concerned about if he needs imaging for his right knee s/p old fall where he did hear a pop. When knee was examined it did look like quadriceps could have been partially torn, but explained to pt that soft tissue changes would not show well on Xray, but he could follow up with his PCP re his imaging concerns. Continued PT will focus on his Right shoulder stiffness and weakness. Physical Therapy Plan Frequency and Duration Frequency of Treatment 1x/Week Duration of Treatment 6 weeks Plan of Care Start Date 07/10/21 Plan of Care End Date 08/21/21 Therapeutic Interventions Therapeutic Interventions Home Exercise Program,Manual Therapy,Neuromuscular Re- education,Self-Care/Home Management,Therapeutic Activities,Therapeutic Exercises Modalities Cold Pack/Ice Massage,Electric Stimulation,Hot Packs Next Visit Focus/Plan Next Visit Plan focus on right shoulder and neck next visit Plan of Care Dates Plan of Care Start Date 07/10/21 Plan of Care End Date 08/21/21 Electronically Signed by: Hyacinth You, SULAIMAN 07/11/21 0948 Please Sign and Return: I have reviewed this Plan of Care and certify that the skilled therapy services above are required to meet the patient?s needs. Physician Signature Date Printed Name and Credentials Clinical Instructor Signature Printed Name and Credentials
--- NOTE | 2021-07-10 12:00 | PT.OTN ---
Current Diagnoses Pain in right shoulder (07/10/21) Pain in left shoulder (07/10/21) Pain in left hip (07/10/21) Physical Therapy Treatment Note PT-OP-A Visit Information Start: 05/02/21 13:00 Freq: Status: Active Protocol: Document 07/10/21 11:18 AMB (Rec: 07/10/21 11:52 AMB [id number]) Out-Patient Physical Therapy Visit Information Visit Information Visit Type Progress Note Visit Start Time 11:15 Visit Stop Time 12:00 Total Visit Minutes 45 Visit Number 8 PT-OP-B Current Condition Start: 05/02/21 13:00 Freq: Status: Active Protocol: Document 05/08/21 09:52 AMB (Rec: 05/08/21 10:36 AMB [id number]) Current Condition History of Current Condition Onset Date chronic Current Complaints bilateral shoulder, back/hip pain History of Current Condition Jatin states he is concerned his medication is contributing to his pain. He also reports 1 fall in the last 6 months. Stairs can be challenging in the quads. 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 Loves to [employer]. Lives on [facility]- is afraid of falling. 5 years ago. Is taking reclast for low bone density due to hyperparathyroidism and concerned about that. Has had previous PT for shoulders. Prior Treatments and Tests PT for neck and shoulders in 2017, hasn't kept up with exercises, but does stretch calves and do biceps curls Treatment Goals Patient/Caregiver Goals Reduce pain, exercise routine Prior Functional Status Baseline Function- ADL's Independent Baseline Function- Mobility Independent Current Functional Impairments (Reported) Functional Limitations- ADL's Lifting arms above shoulder height, extended sitting Personal Factors Other Personal Factors That May Effect Hyperparathyroidism Therapy/Recovery PT-OP-C Subjective Start: 05/02/21 13:00 Freq: Status: Active Protocol: Document 07/10/21 11:18 AMB (Rec: 07/10/21 11:52 AMB [id number]) OP-PT Subjective Patient Comments Patient Comments Feels pretty good with legs. Left shoulder is doing well, Right shoulder continues to be stiff. PT-OP-D Balance Start: 05/02/21 13:00 Freq: Status: Active Protocol: Document 05/08/21 09:45 AMB (Rec: 05/08/21 15:27 AMB [id number]) OP-PT Balance Assessment Standing Balance Standing Balance Comments NBOS EC 5 seconds, denies dizziness with HT, but prefers WBOS Arora Fall Scale Copyright Permission PT-OP-G Mobility & Gait Start: 05/02/21 13:00 Freq: Status: Active Protocol: Document 05/08/21 09:45 AMB (Rec: 05/08/21 15:27 AMB [id number]) OP Gait Assessment Comments Gait Comments Jatin ambulates without AD with reduced trunk rotation and slightly increased WBOS PT-OP-J Posture/Palpation/Skin Start: 05/02/21 13:00 Freq: Status: Active Protocol: Document 05/08/21 09:45 AMB (Rec: 05/08/21 15:27 AMB [id number]) Posture Evaluation Comments Posture Comments Thoracic kyphosis PT-OP-K Range of Motion Start: 05/02/21 13:00 Freq: Status: Active Protocol: Document 05/08/21 09:45 AMB (Rec: 05/08/21 15:27 AMB [id number]) Shoulder Goniometric Range of Motion Shoulder Right Passive Flexion 145 Abduction 145 Left Passive Testing Position Supine Flexion 150 PT-OP-M Strength Start: 05/02/21 13:00 Freq: Status: Active Protocol: Document 05/29/21 14:49 AMB (Rec: 05/29/21 14:57 AMB [id number]) Shoulder Strength Shoulder Manual Muscle Testing Right Flexion 3+ Fair+ Extension 4 Good Abduction (C5) 3 Fair External Rotation 3 Fair Internal Rotation 4 Good Left Flexion 3+ Fair+ Extension 4 Good Abduction (C5) 3 Fair External Rotation 3 Fair Internal Rotation 4 Good Hip Strength Hip Manual Muscle Testing Right Flexion (L2) 4 Good Extension (S1) 4 Good Abduction 4 Good Left Flexion (L2) 4 Good Extension (S1) 4 Good Abduction 4 Good PT-OP-Q Treatments Start: 05/02/21 13:00 Freq: Status: Active Protocol: Document 07/10/21 11:18 AMB (Rec: 07/10/21 11:52 AMB [id number]) Therapeutic Exercises Supine Exercises AAROM cane Reps/Minutes 10 Comments flexion, abduction Sitting Exercises t band ER Reps/Minutes 10 chin tuck Comments 5x5, cued feeling stretch levator scap stretch Side left Reps/Minutes 30x2 Comments see written HEP PT-OP-T Assessment and Plan Start: 05/02/21 13:00 Freq: Status: Active Protocol: Document 07/10/21 11:18 AMB (Rec: 07/10/21 11:52 AMB [id number]) Physical Therapy Assessment Goals Two Impairment Back/legs Short Term Goal (STG) Jatin will sit for an hour without low back pain. STG Duration PARTIALLY MET Bank Messenger Goal (LTG) Jatin will walk in his garden for 1 hour without low back/ hip pain. LTG Duration MET One Impairment Shoulders Short Term Goal (STG) Jatin will be independent with a HEP to improve his shoulder strength. STG Duration MET Jail Goal (LTG) Jatin will improve his shoulder strength so he can lift his arm to 90 degrees without pain. LTG Duration Intermittently met- variable days Assessment Summary Assessment Newton returns to PT after a month break. We spent a significant time on his home exercises. He is concerned about if he needs imaging for his right knee s/p old fall where he did hear a pop. When knee was examined it did look like quadriceps could have been partially torn, but explained to pt that soft tissue changes would not show well on Xray, but he could follow up with his PCP re his imaging concerns. Continued PT will focus on his Right shoulder stiffness and weakness. Physical Therapy Plan Frequency and Duration Frequency of Treatment 1x/Week Duration of Treatment 6 weeks Plan of Care Start Date 07/10/21 Plan of Care End Date 08/21/21 Therapeutic Interventions Therapeutic Interventions Home Exercise Program,Manual Therapy,Neuromuscular Re- education,Self-Care/Home Management,Therapeutic Activities,Therapeutic Exercises Modalities Cold Pack/Ice Massage,Electric Stimulation,Hot Packs Next Visit Focus/Plan Next Visit Plan focus on right shoulder and neck next visit
--- NOTE | 2021-07-17 15:49 | PT.OTN ---
Current Diagnoses Pain in right shoulder (07/17/21) Pain in left shoulder (07/17/21) Pain in left hip (07/17/21) Physical Therapy Treatment Note PT-OP-A Visit Information Start: 05/02/21 13:00 Freq: Status: Active Protocol: Document 07/17/21 10:30 AMB (Rec: 07/17/21 15:49 AMB [id number]) Out-Patient Physical Therapy Visit Information Visit Information Visit Type Discharge Summary Visit Start Time 10:30 Visit Stop Time 11:15 Total Visit Minutes 45 Visit Number 9 PT-OP-B Current Condition Start: 05/02/21 13:00 Freq: Status: Active Protocol: Document 05/08/21 09:52 AMB (Rec: 05/08/21 10:36 AMB [id number]) Current Condition History of Current Condition Onset Date chronic Current Complaints bilateral shoulder, back/hip pain History of Current Condition Jatin states he is concerned his medication is contributing to his pain. He also reports 1 fall in the last 6 months. Stairs can be challenging in the quads. 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 Loves to [place]. [place] [facility] [place]- is afraid of falling. 5 years ago. Is taking reclast for low bone density due to hyperparathyroidism and concerned about that. Has had previous PT for shoulders. Prior Treatments and Tests PT for neck and shoulders in 2017, hasn't kept up with exercises, but does stretch calves and do biceps curls Treatment Goals Patient/Caregiver Goals Reduce pain, exercise routine Prior Functional Status Baseline Function- ADL's Independent Baseline Function- Mobility Independent Current Functional Impairments (Reported) Functional Limitations- ADL's Lifting arms above shoulder height, extended sitting Personal Factors Other Personal Factors That May Effect Hyperparathyroidism Therapy/Recovery PT-OP-C Subjective Start: 05/02/21 13:00 Freq: Status: Active Protocol: Document 07/17/21 10:30 AMB (Rec: 07/17/21 15:49 AMB [id number]) OP-PT Subjective Patient Comments Patient Comments Ready for d/c PT-OP-D Balance Start: 05/02/21 13:00 Freq: Status: Active Protocol: Document 05/08/21 09:45 AMB (Rec: 05/08/21 15:27 AMB [id number]) OP-PT Balance Assessment Standing Balance Standing Balance Comments NBOS EC 5 seconds, denies dizziness with HT, but prefers WBOS Arora Fall Scale Copyright Permission PT-OP-G Mobility & Gait Start: 05/02/21 13:00 Freq: Status: Active Protocol: Document 05/08/21 09:45 AMB (Rec: 05/08/21 15:27 AMB [id number]) OP Gait Assessment Comments Gait Comments Jatin ambulates without AD with reduced trunk rotation and slightly increased WBOS PT-OP-J Posture/Palpation/Skin Start: 05/02/21 13:00 Freq: Status: Active Protocol: Document 05/08/21 09:45 AMB (Rec: 05/08/21 15:27 AMB [id number]) Posture Evaluation Comments Posture Comments Thoracic kyphosis PT-OP-K Range of Motion Start: 05/02/21 13:00 Freq: Status: Active Protocol: Document 05/08/21 09:45 AMB (Rec: 05/08/21 15:27 AMB [id number]) Shoulder Goniometric Range of Motion Shoulder Right Passive Flexion 145 Abduction 145 Left Passive Testing Position Supine Flexion 150 PT-OP-M Strength Start: 05/02/21 13:00 Freq: Status: Active Protocol: Document 05/29/21 14:49 AMB (Rec: 05/29/21 14:57 AMB [id number]) Shoulder Strength Shoulder Manual Muscle Testing Right Flexion 3+ Fair+ Extension 4 Good Abduction (C5) 3 Fair External Rotation 3 Fair Internal Rotation 4 Good Left Flexion 3+ Fair+ Extension 4 Good Abduction (C5) 3 Fair External Rotation 3 Fair Internal Rotation 4 Good Hip Strength Hip Manual Muscle Testing Right Flexion (L2) 4 Good Extension (S1) 4 Good Abduction 4 Good Left Flexion (L2) 4 Good Extension (S1) 4 Good Abduction 4 Good PT-OP-Q Treatments Start: 05/02/21 13:00 Freq: Status: Active Protocol: Document 07/17/21 10:30 AMB (Rec: 07/17/21 15:49 AMB [id number]) Therapeutic Exercises Supine Exercises horizontal abduction Resistance #3 t band Reps/Minutes 2x10 AAROM cane Reps/Minutes 10 Comments flexion, abduction Sitting Exercises t band ER Resistance #3 t band Reps/Minutes 2x 10 PT-OP-T Assessment and Plan Start: 05/02/21 13:00 Freq: Status: Active Protocol: Document 07/17/21 10:30 MINDA (Rec: 07/17/21 15:49 [facility] [id number]) Physical Therapy Assessment Goals Two Impairment Back/legs Short Term Goal (STG) Jatin will sit for an hour without low back pain. STG Duration PARTIALLY MET Correction Goal (LTG) Jatin will walk in his garden for 1 hour without low back/ hip pain. LTG Duration MET One Impairment Shoulders Short Term Goal (STG) Jatin will be independent with a HEP to improve his shoulder strength. STG Duration MET Slasher Hand Goal (LTG) Jatin will improve his shoulder strength so he can lift his arm to 90 degrees without pain. LTG Duration Intermittently met- variable days Assessment Summary Assessment Newton has attended 9 visits of PT. Encouraged him in a consistent HEP. We focused on his shoulders/neck per his request today. He is to perform a AAROM and theraband exercise program at home, and would be welcome to return in another 6 months if he needs a refesher at that time.
== END 2021-07-19 10:09 ==
LOC: PHYS 10:30
PROVIDERS: Family Provider Student in an Organized Health Care Education/Training Program; PCP Student in an Organized Health Care Education/Training Program; Referring Provider Student in an Organized Health Care Education/Training Program; Visit Provider Student in an Organized Health Care Education/Training Program
DX: M25.552 Pain in left hip (principal); M25.511 Pain in right shoulder; M25.512 Pain in left shoulder
CPT/HCPCS: 97110; 97161; 97535

== ENCOUNTER → 2021-08-07 09:04 | Outpatient (CLI) | payer OTHER, SELFPAY ==
[2021-08-07 10:38] LABS: Calcium 9.5 mg/dL (8.4-10.2); Estimated Glomerular Filt Rate > 60 mL/min (>60)
[2021-08-07 10:39] LABS: BUN Creatinine Ratio 16.5 (6-22); Blood Urea Nitrogen 15 mg/dL (9-20); Calcium 9.5 mg/dL (8.4-10.2); Carbon Dioxide 29 mmol/L (22-32); Chloride 103 mmol/L (98-107); Estimated Glomerular Filt Rate > 60 mL/min (>60); Glucose 111 mg/dL (80-110); HEMOLYSIS < 15 (0-50); Phosphorous 2.3 mg/dL (2.3-3.7); Potassium 4.5 mmol/L (3.4-5.1); Sodium 140 mmol/L (137-145)
== END ==
PROVIDERS: Family Provider Student in an Organized Health Care Education/Training Program; PCP Student in an Organized Health Care Education/Training Program; Referring Provider Internal Medicine Endocrinology, Diabetes & Metabolism; Visit Provider Internal Medicine Endocrinology, Diabetes & Metabolism
DX: E21.3 Hyperparathyroidism, unspecified (principal); Z01.812 Encounter for preprocedural laboratory examination
CPT/HCPCS: 36415; 80048; 82310; 82565; 84100

== ENCOUNTER → 2022-06-04 11:32 | Outpatient (CLI) | payer OTHER, SELFPAY ==
--- NOTE | 2022-06-04 11:33 | DI.RAD.S_ITS ---
PROCEDURE: XR KNEE LT 3V INDICATIONS: Bilateral knee pain TECHNIQUE: 3 views of the knee were acquired. COMPARISON: None. FINDINGS: Bones: No fractures or dislocations. No suspicious bony lesions. Superior patellar enthesophyte noted. Joint spaces are preserved. Soft tissues: No joint effusion. No suspicious soft tissue calcifications. IMPRESSION: Patellar enthesophyte. Otherwise unremarkable knee radiographs Approved by: Gavin Driscoll M.D. on 06/04/2022 at 16:42
--- NOTE | 2022-06-04 11:33 | DI.RAD.S_ITS ---
PROCEDURE: XR KNEE RT 3V INDICATIONS: Bilateral knee pain TECHNIQUE: 3 views of the knee were acquired. COMPARISON: None. FINDINGS: Bones: No fractures or dislocations. No suspicious bony lesions. Superior patellar enthesophyte noted. Soft tissues: No joint effusion. Atherosclerotic vascular calcifications. Joint spaces relatively preserved. IMPRESSION: Degenerative superior patellar enthesophyte Approved by: Gavin Driscoll M.D. on 06/04/2022 at 16:43
== END ==
PROVIDERS: Family Provider Student in an Organized Health Care Education/Training Program; PCP Student in an Organized Health Care Education/Training Program; Referring Provider Student in an Organized Health Care Education/Training Program; Visit Provider Student in an Organized Health Care Education/Training Program
DX: M17.0 Bilateral primary osteoarthritis of knee (principal); M25.762 Osteophyte, left knee; M25.761 Osteophyte, right knee
CPT/HCPCS: 73562

== ENCOUNTER → 2022-09-23 08:51 | Outpatient (CLI) | payer OTHER, SELFPAY ==
[2022-09-23 10:23] LABS: Alanine Aminotransferase 24 IU/L (<50); Albumin Globulin Ratio 1.3 (1.0-2.8); Alkaline Phosphatase 54 U/L (38-126); Aspartate Aminotransferase 29 IU/L (17-59); BUN Creatinine Ratio 21.7 (6-22); Bilirubin Total 0.8 mg/dL (0.2-1.3); Blood Urea Nitrogen 18 mg/dL (9-20); Carbon Dioxide 29 mmol/L (22-32); Chloride 103 mmol/L (98-107); Cholesterol 153 mg/dL (140-199); Estimated Glomerular Filt Rate > 60 mL/min (>60); Glucose 100 mg/dL (80-110); HDL Cholesterol 44 mg/dL (40-60); HEMOLYSIS < 15 (0-50); LDL Cholesterol Calculated 91 mg/dL (<100); Potassium 4.5 mmol/L (3.4-5.1); Sodium 138 mmol/L (137-145); Triglycerides 90 mg/dL (35-150)
[2022-09-23 10:31] LABS: Vitamin D 25 Hydroxy (D3) 32.8 ng/mL (30.0-100.0)
== END ==
PROVIDERS: Pediatrics; Family Provider Student in an Organized Health Care Education/Training Program; PCP Student in an Organized Health Care Education/Training Program; Referring Provider Internal Medicine Endocrinology, Diabetes & Metabolism; Visit Provider Internal Medicine Endocrinology, Diabetes & Metabolism
DX: E21.3 Hyperparathyroidism, unspecified (principal); M81.8 Other osteoporosis without current pathological fracture
CPT/HCPCS: 36415; 80053; 80061; 82306

== ENCOUNTER → 2022-10-10 10:52 | Outpatient (CLI) | payer OTHER, SELFPAY ==
[2022-10-10 11:50] LABS: Add Manual Diff / Slide Review NO; Basophils Absolute Auto 0 /uL (0-100); Basophils Percent Auto 0.5 % (0-2); Eosinophils Absolute Auto 100 /uL (0-450); Eosinophils Percent Auto 1.3 % (2-4); Hematocrit 39.5 % (41-53); Hemoglobin 13.5 g/dL (13.5-17.5); Lymphocytes Absolute Auto 1200 /uL (1100-4500); Mean Corpuscular HGB Conc 34.2 % (30-36); Mean Corpuscular Hemoglobin 30.7 PG (26-34); Mean Corpuscular Volume 89.8 fL (80-100); Monocytes Absolute Auto 600 /uL (0-900); Monocytes Percent Auto 6.1 % (3-14); Neutrophils Absolute Auto 7600 /uL (1500-7000); Neutrophils Percent Auto 79.1 % (50-75); Platelet Count 210 X10^3/uL (150-400); Red Cell Distribution Width 13.6 % (11.6-14.8); White Blood Cell Count 9.6 X10^3/uL (4.5-11.0)
[2022-10-10 12:34] LABS: Prostate Specific Antigen 4.24 ng/mL (0.10-4.00)
[2022-10-10 12:53] LABS: Vitamin B12 > 1000 pg/mL (239-931)
[2022-10-11 05:25] LABS: Labcorp Hemoglobin (Hb) A1c 5.9 % (4.8-5.6)
[2022-10-12 11:36] LABS: Calcium 9.5 mg/dL (8.6-10.2); Parathyroid Hormone, Intact 98 pg/mL (15-65)
[2022-10-13 17:06] LABS: Albumin 3.6 g/dL (2.9-4.4); Alpha-1-Globulin 0.2 g/dL (0.0-0.4); Alpha-2-Globulin 0.7 g/dL (0.4-1.0); Gamma Globulin 1.2 g/dL (0.4-1.8); Protein, Total 6.6 g/dL (6.0-8.5)
== END ==
PROVIDERS: Family Provider Student in an Organized Health Care Education/Training Program; PCP Internal Medicine; Referring Provider Internal Medicine; Visit Provider Internal Medicine
DX: E21.3 Hyperparathyroidism, unspecified (principal); N40.1 Benign prostatic hyperplasia with lower urinary tract symptoms; E53.8 Deficiency of other specified B group vitamins; N13.8 Other obstructive and reflux uropathy; R77.9 Abnormality of plasma protein, unspecified; R97.20 Elevated prostate specific antigen [PSA]
CPT/HCPCS: 36415; 82310; 82607; 83036; 83970; 84153; 84155; 84165; 84443; 85025

== ENCOUNTER 2023-03-05 13:30 | Outpatient (RCR) | payer OTHER, SELFPAY ==
--- NOTE | 2023-01-22 14:20 | PT.OPPOC ---
Physical, Occupational & Speech Therapy At [facility] Current Diagnoses Polyneuropathy, unspecified (01/22/23) Polyarthritis, unspecified (01/22/23) Pain in right shoulder (01/22/23) Pain in left shoulder (01/22/23) Pain in right hip (01/22/23) Pain in left hip (01/22/23) Dorsalgia, unspecified (01/22/23) Unsteadiness on feet (01/22/23) Visit Care Team Role Provider Type Luis Miguel Ludwig MD Attending Provider Physician Family Provider Primary Care Provider Referring Provider Specialty: Internal Medicine Address: [address] [place] [address], [facility] Email: [email or web address] Plan Of Care PT-OP-T Assessment and Plan Start: 01/22/23 10:12 Freq: Status: Active Protocol: Document 01/22/23 14:20 AM (Rec: 01/23/23 13:24 AM [id number]) Physical Therapy Assessment Rehab Potential Rehabilitation Potential Good Evaluation Complexity Number of Personal Factors/Comorbidities 1-2 Number of Body Systems Impaired 3 Clinical Presentation at Evaluation Stable Impairments Impairments Activity Tolerance,Balance, Functional Activities, Functional Mobility,Gait,Pain, Posture,ROM,Soft Tissue Mobility,Strength Goals Strength Impairment Pt with 3 to 4-/5 UE strength and 4-/5 LE Strength grossly Funeral Home Attendant Goal (LTG) Pt with improvement by 1 muscle grade at UE and LE strength grossly. LTG Duration 03/15/23 UE ROM Impairment Pt limitations in functional shoulder AROM Short Term Goal (STG) Pt with 10 deg improvement in shoulder flexion and abd. STG Duration 02/12/23 Alf Goal (LTG) Pt with 20 deg improvement in shoulder flexion and abd. LTG Duration 03/05/23 HEP Impairment Pt would like to progress HEP. Funeral Home Attendant Goal (LTG) Pt independent with appropriate HEP for UE, LE and trunk strengthening. LTG Duration 03/05/23 Transfers Impairment Pt unable to transfer from sit <-> supine without increase in low back pain. Alf Goal (LTG) Pt able to transfer from sit<- > supine without increase in LBP. LTG Duration 03/05/23 LE Strength Impairment Pt able to complete 6 STS squats in 30 seconds Short Term Goal (STG) Pt able to complete 9 STS squats in 30 seconds. STG Duration 02/12/23 Funeral Home Attendant Goal (LTG) Pt able to complete 12 STS squats in 30 seconds. LTG Duration 03/05/23 Assessment Summary Assessment Jatin Castro presents to PT today to reassess change since d/c from PT in 2021 and to progress HEP. Pt with recent exacerbation in LBP and presents with lumbar brace today. Pt with difficulty with abdominal activation and demonstrates difficulty with transitional movements from sit-stand and supine <-> sit secondary to LBP. Pt with improved tolerance with cues for abdominal bracing. Pt challenged with breath and abdominal activation. Pt with increase in low back pain with all trunk directions outside of midline. Pt with limited shoulder AROM and strength bilaterally. Pt also with generalized weakness at LE. Pt 's balance will be further assessed at future visits, though pt with reported difficulty with NBOS and when vision altered. Pt would benefit from continued PT to progress global strength and mobility as tolerated to improve tolerance to functional/recreational tasks. Physical Therapy Plan Frequency and Duration Frequency of Treatment 1x/Week Duration of treatment (weeks) 6 Plan of Care Start Date 01/22/23 Plan of Care End Date 03/05/23 Therapeutic Interventions Therapeutic Interventions Balance Training,Gait Training ,Home Exercise Program,Joint Mobilizations,Manual Therapy, Neuromuscular Re-education, Patient/Caregiver Education, Self-Care/Home Management,Soft Tissue Mobilization,Taping, Therapeutic Activities, Therapeutic Exercises Modalities Cold Pack/Ice Massage,Electric Stimulation,Hot Packs, Ultrasound Next Visit Focus/Plan Next Note Type Treatment Note Next Visit Plan Progress HEP, Core strengthening, balance, UE and LE strength Plan of Care Dates Plan of Care Start Date 01/22/23 Plan of Care End Date 03/05/23 Electronically Signed by: Judit Sánchez, PT 01/23/23 [id number] If you are in agreement with this Plan of Care, please return a signed and dated copy. I have reviewed this Plan of Care and certify that the skilled therapy services above are required to meet the patient?s needs. Physician Signature Date Printed Name and Credentials Clinical Instructor Signature Printed Name and Credentials
--- NOTE | 2023-01-22 14:20 | PT.OIE ---
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 History of hemorrhoids History of nephrolithiasis History of recurrent ear infection Hyperparathyroidism Impaired fasting glucose Migraines (~2019) Mixed hyperlipidemia Mumps Osteoporosis Polyneuropathy, unspecified Presbyacusis Rubella TIA (transient ischemic attack) (~01/2019) Tinnitus Past Surgical History (Last Reviewed 11/10/22 @ 13:26 by Luis Miguel Ludwig MD) Anesthesia H/O breast biopsy H/O left inguinal hernia repair H/O lithotripsy History of cataract removal with insertion of prosthetic lens History of hernia repair History of thyroid surgery History of tonsillectomy and adenoidectomy History of transurethral resection of prostate Hx of tonsillectomy S/P excision of thyroid adenoma (~2005) S/P TURP Visit Care Team Role Provider Type Luis Miguel Ludwig MD Attending Provider Physician Family Provider Primary Care Provider Referring Provider Specialty: Internal Medicine Address: [address] [place] [address], [facility] Email: [email or web address] Physical Therapy Initial Evaluation PT-OP-A Visit Information Start: 01/22/23 10:12 Freq: Status: Active Protocol: Document 01/22/23 14:20 AM (Rec: 01/23/23 13:24 AM [id number]) Out-Patient Physical Therapy Visit Information Visit Information Visit Type Initial Evaluation Visit Start Time 14:20 Visit Stop Time 15:05 Total Visit Minutes 45 Visit Number 1 Number of SAP ENTERPRISE PORTAL CONSULTANT Visits 0 PT-OP-B Current Condition Start: 01/22/23 10:12 Freq: Status: Active Protocol: Document 01/22/23 14:20 AM (Rec: 01/23/23 13:24 AM [id number]) Current Condition History of Current Condition Onset Date Chronic Current Complaints low back pain, bilateral shoulder pain, knees, ankles History of Current Condition Pt reports recent onset of LBP that has been inhibiting his function. Pt reports pain is worse with transfer from sitting to standing. Pt feels that he spends too much time in his recliner watching TV at times. Pt thinks that he hurt his back while gardening. Pt presents with a back brace today. Pt reports that he is here to reassess his previous HEP and to expand it. Pt reports that he has been doing shoulder exercises that were previously given to him. He also wants to know if he has regressed at all since last assessment. Pt reports a couple of falls without injury . Prior Functional Status Baseline Function- ADL's Independent Baseline Function- Mobility Independent Current Functional Impairments (Reported) Functional Limitations- ADL's Independent Functional Limitations- Recreation/ Difficulty with gardening Hobbies secondary to low back pain. PT-OP-C Subjective Start: 01/22/23 10:12 Freq: Status: Active Protocol: Document 01/22/23 14:20 AM (Rec: 01/23/23 13:24 AM [id number]) Patient Questionnaires ABC- Activity Specific Balance Confidence Scale ABC Score Pt did not complete 1 question OP-PT Pain Assessment Pain Assessment Grid Paper Pain Assessment Grid Completed Yes Location Low back Pain Location Details Primarily R SIJ region, tough sometimes across low back Intensity 6 Scale Used Numeric (0 - 10) Description Aching,Sharp Frequency Daily Pain Aggravating Factors Changing Position,Activity, Standing,Sitting Other Pain Alleviating Factors brace, tylenol PT-OP-D Balance Start: 01/22/23 10:12 Freq: Status: Active Protocol: Document 01/22/23 14:20 AM (Rec: 01/23/23 13:24 AM [id number]) Balance Tests Other Other Balance Tests Performed NBOS, EC for 20 seconds PT-OP-E Functional Tests Start: 01/22/23 10:12 Freq: Status: Active Protocol: Document 01/22/23 14:20 AM (Rec: 01/23/23 13:24 AM [id number]) Functional Tests 30 Second Sit to Stand Test Score 6 Comments stopped secondary to fear of increasing LBP, though no increase with 6 reps PT-OP-G Mobility & Gait Start: 01/22/23 10:12 Freq: Status: Active Protocol: Document 01/22/23 14:20 AM (Rec: 01/23/23 13:24 AM [id number]) OP Mobility Evaluation Bed Mobility Supine to and from Sit Painful, poor abdominal control OP Gait Assessment Gait Gait Assistance Required: Independent Assistive Devices Assistive Device None Gait Deviations General Gait Pattern Antalgic PT-OP-K Range of Motion Start: 01/22/23 10:12 Freq: Status: Active Protocol: Document 01/22/23 14:20 AM (Rec: 01/23/23 13:24 AM [id number]) Shoulder Goniometric Range of Motion Shoulder Left Active Shoulder ROM WFL No Testing Position Sitting Flexion 95 Abduction 95 Internal Rotation Behind Back (text) Aply L3 Comments Aply ER: neck Right Active Shoulder ROM WFL No Testing Position Sitting Flexion 90 Abduction 85 Internal Rotation Behind Back (text) R buttock Comments Aply ER: back of head PT-OP-M Strength Start: 01/22/23 10:12 Freq: Status: Active Protocol: Document 01/22/23 14:20 AM (Rec: 01/23/23 13:24 AM [id number]) Shoulder Strength Shoulder Manual Muscle Testing Left Flexion 4- Good- Abduction (C5) 3+ Fair+ External Rotation 3+ Fair+ Internal Rotation 4- Good- Right Flexion 4- Good- Extension 4- Good- Abduction (C5) 3 Fair External Rotation 3 Fair Internal Rotation 4- Good- Hip Strength Hip Manual Muscle Testing Left Flexion (L2) 4- Good- Extension (S1) 4- Good- Abduction 4- Good- Adduction 4- Good- Right Flexion (L2) 4- Good- Extension (S1) 4- Good- Abduction 4- Good- Adduction 4- Good- Knee Strength Knee Manual Muscle Testing Left Flexion (S2) 4- Good- Extension (L3) 4- Good- Right Flexion (S2) 4- Good- Extension (L3) 4- Good- PT-OP-Q Treatments Start: 01/22/23 10:12 Freq: Status: Active Protocol: Document 01/22/23 14:20 AM (Rec: 01/23/23 13:24 AM [id number]) Therapeutic Exercises Supine Exercises Transverse abdominis iso Reps/Minutes 5x5 sec Comments cues for breath work Standing Exercises Chair squat Reps/Minutes x5 Comments With min use of hands and cues for abdominal control Standing posture at wall Standing Exercise Name Standing posture with abdominal activation at wall Reps/Minutes 5x5 sec Comments cues for breath Self-Care/Home Management Treatment Education Patient Education Home Exercise Program,Posture Other Education Sit in chair with pillow for lumbar support, limit prolonged sitting, activate abs with transfers PT-OP-T Assessment and Plan Start: 01/22/23 10:12 Freq: Status: Active Protocol: Document 01/22/23 14:20 AM (Rec: 01/23/23 13:24 AM [id number]) Physical Therapy Assessment Rehab Potential Rehabilitation Potential Good Evaluation Complexity Number of Personal Factors/Comorbidities 1-2 Number of Body Systems Impaired 3 Clinical Presentation at Evaluation Stable Impairments Impairments Activity Tolerance,Balance, Functional Activities, Functional Mobility,Gait,Pain, Posture,ROM,Soft Tissue Mobility,Strength Goals Strength Impairment Pt with 3 to 4-/5 UE strength and 4-/5 LE Strength grossly Skilled Nursing Goal (LTG) Pt with improvement by 1 muscle grade at UE and LE strength grossly. LTG Duration 03/15/23 UE ROM Impairment Pt limitations in functional shoulder AROM Short Term Goal (STG) Pt with 10 deg improvement in shoulder flexion and abd. STG Duration 02/12/23 Concrete Fence Builder Goal (LTG) Pt with 20 deg improvement in shoulder flexion and abd. LTG Duration 03/05/23 HEP Impairment Pt would like to progress HEP. Skilled Nursing Goal (LTG) Pt independent with appropriate HEP for UE, LE and trunk strengthening. LTG Duration 03/05/23 Transfers Impairment Pt unable to transfer from sit <-> supine without increase in low back pain. Concrete Fence Builder Goal (LTG) Pt able to transfer from sit<- > supine without increase in LBP. LTG Duration 03/05/23 LE Strength Impairment Pt able to complete 6 STS squats in 30 seconds Short Term Goal (STG) Pt able to complete 9 STS squats in 30 seconds. STG Duration 02/12/23 Skilled Nursing Goal (LTG) Pt able to complete 12 STS squats in 30 seconds. LTG Duration 03/05/23 Assessment Summary Assessment Jatin Castro presents to PT today to reassess change since d/c from PT in 2021 and to progress HEP. Pt with recent exacerbation in LBP and presents with lumbar brace today. Pt with difficulty with abdominal activation and demonstrates difficulty with transitional movements from sit-stand and supine <-> sit secondary to LBP. Pt with improved tolerance with cues for abdominal bracing. Pt challenged with breath and abdominal activation. Pt with increase in low back pain with all trunk directions outside of midline. Pt with limited shoulder AROM and strength bilaterally. Pt also with generalized weakness at LE. Pt 's balance will be further assessed at future visits, though pt with reported difficulty with NBOS and when vision altered. Pt would benefit from continued PT to progress global strength and mobility as tolerated to improve tolerance to functional/recreational tasks. Physical Therapy Plan Frequency and Duration Frequency of Treatment 1x/Week Duration of treatment (weeks) 6 Plan of Care Start Date 01/22/23 Plan of Care End Date 03/05/23 Therapeutic Interventions Therapeutic Interventions Balance Training,Gait Training ,Home Exercise Program,Joint Mobilizations,Manual Therapy, Neuromuscular Re-education, Patient/Caregiver Education, Self-Care/Home Management,Soft Tissue Mobilization,Taping, Therapeutic Activities, Therapeutic Exercises Modalities Cold Pack/Ice Massage,Electric Stimulation,Hot Packs, Ultrasound Next Visit Focus/Plan Next Note Type Treatment Note Next Visit Plan Progress HEP, Core strengthening, balance, UE and LE strength
--- NOTE | 2023-01-28 14:21 | PT.OTN ---
Current Diagnoses Polyneuropathy, unspecified (01/28/23) Polyarthritis, unspecified (01/28/23) Pain in right shoulder (01/28/23) Pain in left shoulder (01/28/23) Pain in right hip (01/28/23) Pain in left hip (01/28/23) Dorsalgia, unspecified (01/28/23) Unsteadiness on feet (01/28/23) Physical Therapy Treatment Note PT-OP-A Visit Information Start: 01/22/23 10:12 Freq: Status: Active Protocol: Document 01/28/23 14:21 AM (Rec: 01/28/23 15:19 AM [id number]) Out-Patient Physical Therapy Visit Information Visit Information Visit Type Treatment Note Visit Start Time 14:21 Visit Stop Time 15:06 Total Visit Minutes 45 Visit Number 2 Number of DIRECTOR COMMERCIAL SALES Visits 0 PT-OP-B Current Condition Start: 01/22/23 10:12 Freq: Status: Active Protocol: Document 01/22/23 14:20 AM (Rec: 01/23/23 13:24 AM [id number]) Current Condition History of Current Condition Onset Date Chronic Current Complaints low back pain, bilateral shoulder pain, knees, ankles History of Current Condition Pt reports recent onset of LBP that has been inhibiting his function. Pt reports pain is worse with transfer from sitting to standing. Pt feels that he spends too much time in his recliner watching TV at times. Pt thinks that he hurt his back while gardening. Pt presents with a back brace today. Pt reports that he is here to reassess his previous HEP and to expand it. Pt reports that he has been doing shoulder exercises that were previously given to him. He also wants to know if he has regressed at all since last assessment. Pt reports a couple of falls without injury . Prior Functional Status Baseline Function- ADL's Independent Baseline Function- Mobility Independent Current Functional Impairments (Reported) Functional Limitations- ADL's Independent Functional Limitations- Recreation/ Difficulty with gardening Hobbies secondary to low back pain. PT-OP-C Subjective Start: 01/22/23 10:12 Freq: Status: Active Protocol: Document 01/28/23 14:21 AM (Rec: 01/28/23 15:19 AM [id number]) OP-PT Subjective Patient Comments Patient Comments Pt reports a 25% improvement in low back symptoms. PT-OP-D Balance Start: 01/22/23 10:12 Freq: Status: Active Protocol: Document 01/22/23 14:20 AM (Rec: 01/23/23 13:24 AM [id number]) Balance Tests Other Other Balance Tests Performed NBOS, EC for 20 seconds PT-OP-E Functional Tests Start: 01/22/23 10:12 Freq: Status: Active Protocol: Document 01/22/23 14:20 AM (Rec: 01/23/23 13:24 AM [id number]) Functional Tests 30 Second Sit to Stand Test Score 6 Comments stopped secondary to fear of increasing LBP, though no increase with 6 reps PT-OP-G Mobility & Gait Start: 01/22/23 10:12 Freq: Status: Active Protocol: Document 01/22/23 14:20 AM (Rec: 01/23/23 13:24 AM [id number]) OP Mobility Evaluation Bed Mobility Supine to and from Sit Painful, poor abdominal control OP Gait Assessment Gait Gait Assistance Required: Independent Assistive Devices Assistive Device None Gait Deviations General Gait Pattern Antalgic PT-OP-K Range of Motion Start: 01/22/23 10:12 Freq: Status: Active Protocol: Document 01/22/23 14:20 AM (Rec: 01/23/23 13:24 AM [id number]) Shoulder Goniometric Range of Motion Shoulder Left Active Shoulder ROM WFL No Testing Position Sitting Flexion 95 Abduction 95 Internal Rotation Behind Back (text) Aply L3 Comments Aply ER: neck Right Active Shoulder ROM WFL No Testing Position Sitting Flexion 90 Abduction 85 Internal Rotation Behind Back (text) R buttock Comments Aply ER: back of head PT-OP-M Strength Start: 01/22/23 10:12 Freq: Status: Active Protocol: Document 01/22/23 14:20 AM (Rec: 01/23/23 13:24 AM [id number]) Shoulder Strength Shoulder Manual Muscle Testing Left Flexion 4- Good- Abduction (C5) 3+ Fair+ External Rotation 3+ Fair+ Internal Rotation 4- Good- Right Flexion 4- Good- Extension 4- Good- Abduction (C5) 3 Fair External Rotation 3 Fair Internal Rotation 4- Good- Hip Strength Hip Manual Muscle Testing Left Flexion (L2) 4- Good- Extension (S1) 4- Good- Abduction 4- Good- Adduction 4- Good- Right Flexion (L2) 4- Good- Extension (S1) 4- Good- Abduction 4- Good- Adduction 4- Good- Knee Strength Knee Manual Muscle Testing Left Flexion (S2) 4- Good- Extension (L3) 4- Good- Right Flexion (S2) 4- Good- Extension (L3) 4- Good- PT-OP-Q Treatments Start: 01/22/23 10:12 Freq: Status: Active Protocol: Document 01/28/23 14:21 AM (Rec: 01/28/23 15:19 AM [id number]) Cardio Equipment Recumbent Stepper (Sci-Fit) Duration (Minutes) 5 Resistance 2.5 Other Towel roll at small of low back Therapeutic Exercises Supine Exercises Bent knee fall out Supine Exercise Name BKFO Side bilateral Comments cues for pelvic control without PPT. Standing Exercises Row Resistance GTB Reps/Minutes x15 Manual Therapy Treatment Soft Tissue Mobilization R QL Body Position L sidelying Manual Traction R LE Details R hip traction Comments Pt reports decreased low back pain Manual Techniques QL stretch Comments Manual QL stretch in L sidelying Self-Care/Home Management Treatment Education Patient Education Pain Management Other Education Use tennis ball against wall to massage R QL in standing PT-OP-T Assessment and Plan Start: 01/22/23 10:12 Freq: Status: Active Protocol: Document 01/28/23 14:21 AM (Rec: 01/28/23 15:19 AM [id number]) Physical Therapy Assessment Impairments Impairments Activity Tolerance,Balance, Functional Activities, Functional Mobility,Gait,Pain, Posture,ROM,Soft Tissue Mobility,Strength Goals Strength Impairment Pt with 3 to 4-/5 UE strength and 4-/5 LE Strength grossly Custodial Goal (LTG) Pt with improvement by 1 muscle grade at UE and LE strength grossly. LTG Duration 03/15/23 UE ROM Impairment Pt limitations in functional shoulder AROM Short Term Goal (STG) Pt with 10 deg improvement in shoulder flexion and abd. STG Duration 02/12/23 Custodial Goal (LTG) Pt with 20 deg improvement in shoulder flexion and abd. LTG Duration 03/05/23 HEP Impairment Pt would like to progress HEP. Manager Surgical Goal (LTG) Pt independent with appropriate HEP for UE, LE and trunk strengthening. LTG Duration 03/05/23 Transfers Impairment Pt unable to transfer from sit <-> supine without increase in low back pain. Custodial Goal (LTG) Pt able to transfer from sit<- > supine without increase in LBP. LTG Duration 03/05/23 LE Strength Impairment Pt able to complete 6 STS squats in 30 seconds Short Term Goal (STG) Pt able to complete 9 STS squats in 30 seconds. STG Duration 02/12/23 Custodial Goal (LTG) Pt able to complete 12 STS squats in 30 seconds. LTG Duration 03/05/23 Assessment Summary Assessment Pt with tenderness along R QL with palpation. Pt demonstrated reduction in symptoms with manual traction of R LE. Pt demonstrates improving tolerance to rolling and mobility compared to IE, though continues to be very guarded. Pt with low back pain with both extension and flexion. Pt would benefit from continued PT to progress trunk stability, UE/LE strength and mobility to improve tolerance to functional activities. Physical Therapy Plan Frequency and Duration Frequency of Treatment 1x/Week Duration of treatment (weeks) 6 Plan of Care Start Date 01/22/23 Plan of Care End Date 03/05/23 Therapeutic Interventions Therapeutic Interventions Balance Training,Gait Training ,Home Exercise Program,Joint Mobilizations,Manual Therapy, Neuromuscular Re-education, Patient/Caregiver Education, Self-Care/Home Management,Soft Tissue Mobilization,Taping, Therapeutic Activities, Therapeutic Exercises Modalities Cold Pack/Ice Massage,Electric Stimulation,Hot Packs, Ultrasound Next Visit Focus/Plan Next Note Type Treatment Note Next Visit Plan Progress HEP, Core strengthening, balance, UE and LE strength
--- NOTE | 2023-02-05 14:17 | PT.OTN ---
Current Diagnoses Polyneuropathy, unspecified (02/05/23) Polyarthritis, unspecified (02/05/23) Pain in right shoulder (02/05/23) Pain in left shoulder (02/05/23) Pain in right hip (02/05/23) Pain in left hip (02/05/23) Dorsalgia, unspecified (02/05/23) Unsteadiness on feet (02/05/23) Physical Therapy Treatment Note PT-OP-A Visit Information Start: 01/22/23 10:12 Freq: Status: Active Protocol: Document 02/05/23 14:17 AM (Rec: 02/05/23 17:06 AM [id number]) Out-Patient Physical Therapy Visit Information Visit Information Visit Type Treatment Note Visit Start Time 14:17 Visit Stop Time 15:02 Total Visit Minutes 45 Visit Number 3 Number of SCHOOL OPERATIONS MANAGER Visits 0 PT-OP-B Current Condition Start: 01/22/23 10:12 Freq: Status: Active Protocol: Document 01/22/23 14:20 AM (Rec: 01/23/23 13:24 AM [id number]) Current Condition History of Current Condition Onset Date Chronic Current Complaints low back pain, bilateral shoulder pain, knees, ankles History of Current Condition Pt reports recent onset of LBP that has been inhibiting his function. Pt reports pain is worse with transfer from sitting to standing. Pt feels that he spends too much time in his recliner watching TV at times. Pt thinks that he hurt his back while gardening. Pt presents with a back brace today. Pt reports that he is here to reassess his previous HEP and to expand it. Pt reports that he has been doing shoulder exercises that were previously given to him. He also wants to know if he has regressed at all since last assessment. Pt reports a couple of falls without injury . Prior Functional Status Baseline Function- ADL's Independent Baseline Function- Mobility Independent Current Functional Impairments (Reported) Functional Limitations- ADL's Independent Functional Limitations- Recreation/ Difficulty with gardening Hobbies secondary to low back pain. PT-OP-C Subjective Start: 01/22/23 10:12 Freq: Status: Active Protocol: Document 02/05/23 14:17 AM (Rec: 02/05/23 17:06 AM [id number]) OP-PT Subjective Patient Comments Patient Comments Pt reports that he feels that he is getting better, though continues to get twinges with getting in and out of car . PT-OP-D Balance Start: 01/22/23 10:12 Freq: Status: Active Protocol: Document 01/22/23 14:20 AM (Rec: 01/23/23 13:24 AM [id number]) Balance Tests Other Other Balance Tests Performed NBOS, EC for 20 seconds PT-OP-E Functional Tests Start: 01/22/23 10:12 Freq: Status: Active Protocol: Document 01/22/23 14:20 AM (Rec: 01/23/23 13:24 AM [id number]) Functional Tests 30 Second Sit to Stand Test Score 6 Comments stopped secondary to fear of increasing LBP, though no increase with 6 reps PT-OP-G Mobility & Gait Start: 01/22/23 10:12 Freq: Status: Active Protocol: Document 01/22/23 14:20 AM (Rec: 01/23/23 13:24 AM [id number]) OP Mobility Evaluation Bed Mobility Supine to and from Sit Painful, poor abdominal control OP Gait Assessment Gait Gait Assistance Required: Independent Assistive Devices Assistive Device None Gait Deviations General Gait Pattern Antalgic PT-OP-K Range of Motion Start: 01/22/23 10:12 Freq: Status: Active Protocol: Document 01/22/23 14:20 AM (Rec: 01/23/23 13:24 AM [id number]) Shoulder Goniometric Range of Motion Shoulder Left Active Shoulder ROM WFL No Testing Position Sitting Flexion 95 Abduction 95 Internal Rotation Behind Back (text) Aply L3 Comments Aply ER: neck Right Active Shoulder ROM WFL No Testing Position Sitting Flexion 90 Abduction 85 Internal Rotation Behind Back (text) R buttock Comments Aply ER: back of head PT-OP-M Strength Start: 01/22/23 10:12 Freq: Status: Active Protocol: Document 01/22/23 14:20 AM (Rec: 01/23/23 13:24 AM [id number]) Shoulder Strength Shoulder Manual Muscle Testing Left Flexion 4- Good- Abduction (C5) 3+ Fair+ External Rotation 3+ Fair+ Internal Rotation 4- Good- Right Flexion 4- Good- Extension 4- Good- Abduction (C5) 3 Fair External Rotation 3 Fair Internal Rotation 4- Good- Hip Strength Hip Manual Muscle Testing Left Flexion (L2) 4- Good- Extension (S1) 4- Good- Abduction 4- Good- Adduction 4- Good- Right Flexion (L2) 4- Good- Extension (S1) 4- Good- Abduction 4- Good- Adduction 4- Good- Knee Strength Knee Manual Muscle Testing Left Flexion (S2) 4- Good- Extension (L3) 4- Good- Right Flexion (S2) 4- Good- Extension (L3) 4- Good- PT-OP-Q Treatments Start: 01/22/23 10:12 Freq: Status: Active Protocol: Document 02/05/23 14:17 AM (Rec: 02/05/23 17:06 AM [id number]) Therapeutic Exercises Supine Exercises SKTC Supine Exercise Name SKTC Side bilateral Reps/Minutes 2x30 sec Shoulder flexion Supine Exercise Name Shoulder flexion with dowel, cues for abdominal stab Reps/Minutes x10 Comments Given in HEP Bent knee fall out Supine Exercise Name BKFO Side bilateral Comments cues for pelvic control without PPT. Sidelying Exercises Clamshells Side bilateral Reps/Minutes x10 Comments cues for pelvic stab, given in HEP Standing Exercises Side step Standing Exercise Name With band in hand for trunk isometric Side bilateral Resistance peach TB Row Resistance GTB Reps/Minutes x15 PT-OP-T Assessment and Plan Start: 01/22/23 10:12 Freq: Status: Active Protocol: Document 02/05/23 14:17 AM (Rec: 02/05/23 17:06 AM [id number]) Physical Therapy Assessment Goals Strength Impairment Pt with 3 to 4-/5 UE strength and 4-/5 LE Strength grossly Soil Sampler Goal (LTG) Pt with improvement by 1 muscle grade at UE and LE strength grossly. LTG Duration 03/15/23 UE ROM Impairment Pt limitations in functional shoulder AROM Short Term Goal (STG) Pt with 10 deg improvement in shoulder flexion and abd. STG Duration 02/12/23 Soil Sampler Goal (LTG) Pt with 20 deg improvement in shoulder flexion and abd. LTG Duration 03/05/23 HEP Impairment Pt would like to progress HEP. [facility] Goal (LTG) Pt independent with appropriate HEP for UE, LE and trunk strengthening. LTG Duration 03/05/23 Transfers Impairment Pt unable to transfer from sit <-> supine without increase in low back pain. [facility] Goal (LTG) Pt able to transfer from sit<- > supine without increase in LBP. LTG Duration 03/05/23 LE Strength Impairment Pt able to complete 6 STS squats in 30 seconds Short Term Goal (STG) Pt able to complete 9 STS squats in 30 seconds. STG Duration 02/12/23 Soil Sampler Goal (LTG) Pt able to complete 12 STS squats in 30 seconds. LTG Duration 03/05/23 Assessment Summary Assessment Pt with decreased tenderness at R QL with palpation today. Pt continues to be challenged with core stabilization and demonstrates diastasis recti with cervical flexion in supine. Pt able to tolerate activation of abdominals without production of low back pain, which is improvement from last session. Pt with improving tolerance to rolling and transfers as well. Pt requires cueing for abdominal stabilization without exercises. Pt would benefit from continued PT to progress trunk strength and generalized strength. Physical Therapy Plan Frequency and Duration Frequency of Treatment 1x/Week Duration of treatment (weeks) 6 Plan of Care Start Date 01/22/23 Plan of Care End Date 03/05/23 Therapeutic Interventions Therapeutic Interventions Balance Training,Gait Training ,Home Exercise Program,Joint Mobilizations,Manual Therapy, Neuromuscular Re-education, Patient/Caregiver Education, Self-Care/Home Management,Soft Tissue Mobilization,Taping, Therapeutic Activities, Therapeutic Exercises Modalities Cold Pack/Ice Massage,Electric Stimulation,Hot Packs, Ultrasound Next Visit Focus/Plan Next Note Type Treatment Note Next Visit Plan Progress HEP, Core strengthening, balance, UE and LE strength
--- NOTE | 2023-02-26 11:29 | PT.OTN ---
Current Diagnoses Polyneuropathy, unspecified (02/26/23) Polyarthritis, unspecified (02/26/23) Pain in right shoulder (02/26/23) Pain in left shoulder (02/26/23) Pain in right hip (02/26/23) Pain in left hip (02/26/23) Dorsalgia, unspecified (02/26/23) Unsteadiness on feet (02/26/23) Physical Therapy Treatment Note PT-OP-A Visit Information Start: 01/22/23 10:12 Freq: Status: Active Protocol: Document 02/26/23 11:29 AM (Rec: 02/26/23 16:45 AM [id number]) Out-Patient Physical Therapy Visit Information Visit Information Visit Type Progress Note Visit Start Time 11:31 Visit Stop Time 12:16 Total Visit Minutes 45 Visit Number 4 PT-OP-B Current Condition Start: 01/22/23 10:12 Freq: Status: Active Protocol: Document 01/22/23 14:20 AM (Rec: 01/23/23 13:24 AM [id number]) Current Condition History of Current Condition Onset Date Chronic Current Complaints low back pain, bilateral shoulder pain, knees, ankles History of Current Condition Pt reports recent onset of LBP that has been inhibiting his function. Pt reports pain is worse with transfer from sitting to standing. Pt feels that he spends too much time in his recliner watching TV at times. Pt thinks that he hurt his back while gardening. Pt presents with a back brace today. Pt reports that he is here to reassess his previous HEP and to expand it. Pt reports that he has been doing shoulder exercises that were previously given to him. He also wants to know if he has regressed at all since last assessment. Pt reports a couple of falls without injury . Prior Functional Status Baseline Function- ADL's Independent Baseline Function- Mobility Independent Current Functional Impairments (Reported) Functional Limitations- ADL's Independent Functional Limitations- Recreation/ Difficulty with gardening Hobbies secondary to low back pain. PT-OP-C Subjective Start: 01/22/23 10:12 Freq: Status: Active Protocol: Document 02/26/23 11:29 AM (Rec: 02/26/23 16:45 AM [id number]) OP-PT Subjective Patient Comments Patient Comments Pt reports that back is feeling better. Pt reports that he is not using his back brace nearly as much. Pt reports that he is having R lateral hip pain. Pt reports good compliance with HEP. PT-OP-D Balance Start: 01/22/23 10:12 Freq: Status: Active Protocol: Document 01/22/23 14:20 AM (Rec: 01/23/23 13:24 AM [id number]) Balance Tests Other Other Balance Tests Performed NBOS, EC for 20 seconds PT-OP-E Functional Tests Start: 01/22/23 10:12 Freq: Status: Active Protocol: Document 01/22/23 14:20 AM (Rec: 01/23/23 13:24 AM [id number]) Functional Tests 30 Second Sit to Stand Test Score 6 Comments stopped secondary to fear of increasing LBP, though no increase with 6 reps PT-OP-G Mobility & Gait Start: 01/22/23 10:12 Freq: Status: Active Protocol: Document 01/22/23 14:20 AM (Rec: 01/23/23 13:24 AM [id number]) OP Mobility Evaluation Bed Mobility Supine to and from Sit Painful, poor abdominal control OP Gait Assessment Gait Gait Assistance Required: Independent Assistive Devices Assistive Device None Gait Deviations General Gait Pattern Antalgic PT-OP-K Range of Motion Start: 01/22/23 10:12 Freq: Status: Active Protocol: Document 02/26/23 11:29 AM (Rec: 02/26/23 16:45 AM [id number]) Shoulder Goniometric Range of Motion Shoulder Left Active Flexion 125 Abduction 118 Internal Rotation Behind Back (text) L1 Comments ER Aply: T2 Right Active Flexion 110 Abduction 97 Internal Rotation Behind Back (text) L4 Comments Aply ER: back of neck PT-OP-M Strength Start: 01/22/23 10:12 Freq: Status: Active Protocol: Document 01/22/23 14:20 AM (Rec: 01/23/23 13:24 AM [id number]) Shoulder Strength Shoulder Manual Muscle Testing Left Flexion 4- Good- Abduction (C5) 3+ Fair+ External Rotation 3+ Fair+ Internal Rotation 4- Good- Right Flexion 4- Good- Extension 4- Good- Abduction (C5) 3 Fair External Rotation 3 Fair Internal Rotation 4- Good- Hip Strength Hip Manual Muscle Testing Left Flexion (L2) 4- Good- Extension (S1) 4- Good- Abduction 4- Good- Adduction 4- Good- Right Flexion (L2) 4- Good- Extension (S1) 4- Good- Abduction 4- Good- Adduction 4- Good- Knee Strength Knee Manual Muscle Testing Left Flexion (S2) 4- Good- Extension (L3) 4- Good- Right Flexion (S2) 4- Good- Extension (L3) 4- Good- PT-OP-Q Treatments Start: 01/22/23 10:12 Freq: Status: Active Protocol: Document 02/26/23 11:29 AM (Rec: 02/26/23 16:45 AM [id number]) Therapeutic Exercises Supine Exercises SKTC Supine Exercise Name SKTC Side bilateral Reps/Minutes x30 sec Comments produced groin sxs on L Bent knee fall out Supine Exercise Name BKFO Side bilateral Comments cues for pelvic control without PPT. Transverse abdominis iso Reps/Minutes 5x10 sec Comments cues for breath Sidelying Exercises Clamshells Side bilateral Reps/Minutes x10 Comments cues for pelvic stab, given in HEP Sitting Exercises Nestor Sitting Exercise Name Flexion and abd Side bilateral Reps/Minutes x1 min ea Standing Exercises wall slide Standing Exercise Name 1 at a time Side bilateral Reps/Minutes x5 Comments added to HEP Shoulder extension Resistance GTB Reps/Minutes x15 Row Resistance GTB Reps/Minutes x15 Manual Therapy Treatment Soft Tissue Mobilization R glutes Body Location R glutes Mobilization Type Trigger Point Release Intensity/Depth Moderate Body Position Sidelying Manual Techniques Firgure 4 stretch Reps/Duration x30 sec PT-OP-T Assessment and Plan Start: 01/22/23 10:12 Freq: Status: Active Protocol: Document 02/26/23 11:29 AM (Rec: 02/26/23 16:45 AM [id number]) Physical Therapy Assessment Goals Strength Impairment Pt with 3 to 4-/5 UE strength and 4-/5 LE Strength grossly Rehabilitation Clerk Goal (LTG) Pt with improvement by 1 muscle grade at UE and LE strength grossly. LTG Duration 03/15/23 UE ROM Impairment Pt limitations in functional shoulder AROM Short Term Goal (STG) Pt with 10 deg improvement in shoulder flexion and abd. 02/26/23: Goal met on ea UE STG Duration 02/12/23-achieved [facility] Goal (LTG) Pt with 20 deg improvement in shoulder flexion and abd. LTG Duration 03/05/23 HEP Impairment Pt would like to progress HEP. Rehabilitation Clerk Goal (LTG) Pt independent with appropriate HEP for UE, LE and trunk strengthening. LTG Duration 03/05/23 Transfers Impairment Pt unable to transfer from sit <-> supine without increase in low back pain. Rehabilitation Clerk Goal (LTG) Pt able to transfer from sit<- > supine without increase in LBP. 02/26/23: Goal met LTG Duration 03/05/23 LE Strength Impairment Pt able to complete 6 STS squats in 30 seconds Short Term Goal (STG) Pt able to complete 9 STS squats in 30 seconds. STG Duration 02/12/23 [facility] Goal (LTG) Pt able to complete 12 STS squats in 30 seconds. LTG Duration 03/05/23 Assessment Summary Assessment Pt with tenderness at R glutes with STM today. Pt demonstrates stiffness at hip rotators into ER. Pt demonstrates improving awareness of abdominal bracing with functional mobility. Pt demonstrates improved AROM shoulder mobility compared to IE. Pt will return to PT next week to reassess to determine future POC. Physical Therapy Plan Frequency and Duration Frequency of Treatment 1x/Week Duration of treatment (weeks) 6 Plan of Care Start Date 01/22/23 Plan of Care End Date 03/05/23 Therapeutic Interventions Therapeutic Interventions Balance Training,Gait Training ,Home Exercise Program,Joint Mobilizations,Manual Therapy, Neuromuscular Re-education, Patient/Caregiver Education, Self-Care/Home Management,Soft Tissue Mobilization,Taping, Therapeutic Activities, Therapeutic Exercises Modalities Cold Pack/Ice Massage,Electric Stimulation,Hot Packs, Ultrasound Next Visit Focus/Plan Next Note Type Discharge Summary Next Visit Plan reassess, condense HEP
--- NOTE | 2023-03-05 13:30 | PT.OTN ---
Current Diagnoses Polyneuropathy, unspecified (03/05/23) Polyarthritis, unspecified (03/05/23) Pain in right shoulder (03/05/23) Pain in left shoulder (03/05/23) Pain in right hip (03/05/23) Pain in left hip (03/05/23) Dorsalgia, unspecified (03/05/23) Unsteadiness on feet (03/05/23) Physical Therapy Treatment Note PT-OP-A Visit Information Start: 01/22/23 10:12 Freq: Status: Active Protocol: Document 03/05/23 13:30 AM (Rec: 03/05/23 17:39 AM [id number]) Out-Patient Physical Therapy Visit Information Visit Information Visit Type Discharge Summary Visit Start Time 13:30 Visit Stop Time 14:14 Total Visit Minutes 45 Visit Number 09/08 PT-OP-B Current Condition Start: 01/22/23 10:12 Freq: Status: Active Protocol: Document 01/22/23 14:20 AM (Rec: 01/23/23 13:24 AM [id number]) Current Condition History of Current Condition Onset Date Chronic Current Complaints low back pain, bilateral shoulder pain, knees, ankles History of Current Condition Pt reports recent onset of LBP that has been inhibiting his function. Pt reports pain is worse with transfer from sitting to standing. Pt feels that he spends too much time in his recliner watching TV at times. Pt thinks that he hurt his back while gardening. Pt presents with a back brace today. Pt reports that he is here to reassess his previous HEP and to expand it. Pt reports that he has been doing shoulder exercises that were previously given to him. He also wants to know if he has regressed at all since last assessment. Pt reports a couple of falls without injury . Prior Functional Status Baseline Function- ADL's Independent Baseline Function- Mobility Independent Current Functional Impairments (Reported) Functional Limitations- ADL's Independent Functional Limitations- Recreation/ Difficulty with gardening Hobbies secondary to low back pain. PT-OP-C Subjective Start: 01/22/23 10:12 Freq: Status: Active Protocol: Document 03/05/23 13:30 AM (Rec: 03/05/23 17:39 AM [id number]) OP-PT Subjective Patient Comments Patient Comments Pt reports that he continues to have improvement in LBP. Pt reports good understanding of HEP and agreeable to d/c today. PT-OP-D Balance Start: 01/22/23 10:12 Freq: Status: Active Protocol: Document 01/22/23 14:20 AM (Rec: 01/23/23 13:24 AM [id number]) Balance Tests Other Other Balance Tests Performed NBOS, EC for 20 seconds PT-OP-E Functional Tests Start: 01/22/23 10:12 Freq: Status: Active Protocol: Document 01/22/23 14:20 AM (Rec: 01/23/23 13:24 AM [id number]) Functional Tests 30 Second Sit to Stand Test Score 6 Comments stopped secondary to fear of increasing LBP, though no increase with 6 reps PT-OP-G Mobility & Gait Start: 01/22/23 10:12 Freq: Status: Active Protocol: Document 01/22/23 14:20 AM (Rec: 01/23/23 13:24 AM [id number]) OP Mobility Evaluation Bed Mobility Supine to and from Sit Painful, poor abdominal control OP Gait Assessment Gait Gait Assistance Required: Independent Assistive Devices Assistive Device None Gait Deviations General Gait Pattern Antalgic PT-OP-K Range of Motion Start: 01/22/23 10:12 Freq: Status: Active Protocol: Document 03/05/23 13:30 AM (Rec: 03/05/23 17:39 AM [id number]) Shoulder Goniometric Range of Motion Shoulder Left Active Flexion 130 Abduction 130 Internal Rotation Behind Back (text) T12 Comments ER Aply: T2 Right Active Flexion 110 Abduction 90 Internal Rotation Behind Back (text) L3 Comments Aply ER: back of neck PT-OP-M Strength Start: 01/22/23 10:12 Freq: Status: Active Protocol: Document 03/05/23 13:30 AM (Rec: 03/05/23 17:39 AM [id number]) Shoulder Strength Shoulder Manual Muscle Testing Left External Rotation 3+ Fair+ Internal Rotation 4- Good- Right External Rotation 3+ Fair+ Internal Rotation 4 Good Hip Strength Hip Manual Muscle Testing Left Flexion (L2) 4- Good- Extension (S1) 4- Good- Abduction 4 Good Adduction 4 Good Right Flexion (L2) 4- Good- Extension (S1) 4- Good- Abduction 4 Good Adduction 4 Good Knee Strength Knee Manual Muscle Testing Left Flexion (S2) 4 Good Extension (L3) 4 Good Right Flexion (S2) 4 Good Extension (L3) 4- Good- PT-OP-Q Treatments Start: 01/22/23 10:12 Freq: Status: Active Protocol: Document 03/05/23 13:30 AM (Rec: 03/05/23 17:39 AM [id number]) Therapeutic Exercises Supine Exercises Bent knee fall out Supine Exercise Name BKFO Side bilateral Resistance Refugio TB Reps/Minutes 2x10 Comments cues for pelvic control without PPT. Sidelying Exercises Clamshells Side bilateral Resistance Refugio TB Reps/Minutes x10 Comments cues for pelvic stab, given in HEP Sitting Exercises Nestor Sitting Exercise Name Flexion and abd Side bilateral Reps/Minutes x1 min ea Standing Exercises wall slide Standing Exercise Name 1 at a time Side bilateral Reps/Minutes x5 Comments added to HEP Shoulder extension Resistance GTB Reps/Minutes x15 Comments cues for abdominal stab Row Resistance GTB Reps/Minutes x15 Manual Therapy Treatment Manual Techniques Firgure 4 stretch Reps/Duration x30 sec PT-OP-T Assessment and Plan Start: 01/22/23 10:12 Freq: Status: Active Protocol: Document 03/05/23 13:30 AM (Rec: 03/05/23 17:39 AM [id number]) Physical Therapy Assessment Goals Strength Impairment Pt with 3 to 4-/5 UE strength and 4-/5 LE Strength grossly Shelter Goal (LTG) Pt with improvement by 1 muscle grade at UE and LE strength grossly. Goal Met on 03/05/23 LTG Duration 03/15/23 UE ROM Impairment Pt limitations in functional shoulder AROM Short Term Goal (STG) Pt with 10 deg improvement in shoulder flexion and abd. 02/26/23: Goal met on ea UE STG Duration 02/12/23-achieved Clinical Dietician Goal (LTG) Pt with 20 deg improvement in shoulder flexion and abd. 03/05/23: Goal met LTG Duration 03/05/23 HEP Impairment Pt would like to progress HEP. Shelter Goal (LTG) Pt independent with appropriate HEP for UE, LE and trunk strengthening. 03/05/23: Goal met LTG Duration 03/05/23-achieved Transfers Impairment Pt unable to transfer from sit <-> supine without increase in low back pain. Clinical Dietician Goal (LTG) Pt able to transfer from sit<- > supine without increase in LBP. 02/26/23: Goal met 03/05/23: Pt with reported slight increase in R LBP with transfer LTG Duration 03/05/23 LE Strength Impairment Pt able to complete 6 STS squats in 30 seconds Short Term Goal (STG) Pt able to complete 9 STS squats in 30 seconds. STG Duration 02/12/23 Shelter Goal (LTG) Pt able to complete 12 STS squats in 30 seconds. 03/05/23: Improved score. Pt able to do 10.5 STS Squats in 30 seconds from chen chair LTG Duration 03/05/23 Progress Towards Goals Progress Towards Goals Goals Met Assessment Summary Assessment Pt demonstrates good progress towards all goal. Pt agreeable to d/c today. Pt demonstrates good understanding of HEP. Pt with reduction of symptoms and improvement in shoulder ROM since start of PT. Pt encouraged to continue HEP in pain-free ranges and to contact referring provider if symptoms return or worsen. Pt has completed 5 PT sessions. Physical Therapy Plan Frequency and Duration Frequency of Treatment 1x/Week Duration of treatment (weeks) 6 Plan of Care Start Date 01/22/23 Plan of Care End Date 03/05/23 Therapeutic Interventions Therapeutic Interventions Balance Training,Gait Training ,Home Exercise Program,Joint Mobilizations,Manual Therapy, Neuromuscular Re-education, Patient/Caregiver Education, Self-Care/Home Management,Soft Tissue Mobilization,Taping, Therapeutic Activities, Therapeutic Exercises Modalities Cold Pack/Ice Massage,Electric Stimulation,Hot Packs, Ultrasound Next Visit Focus/Plan Next Note Type Discharge Summary Next Visit Plan reassess, condense HEP
== END 2023-03-16 10:56 | disposition home or self-care (01) ==
LOC: PHYS 13:30
PROVIDERS: Family Provider Internal Medicine; PCP Internal Medicine; Referring Provider Internal Medicine; Visit Provider Internal Medicine
DX: G62.9 Polyneuropathy, unspecified (principal); R26.81 Unsteadiness on feet; M13.0 Polyarthritis, unspecified; M54.9 Dorsalgia, unspecified; M25.551 Pain in right hip; M25.552 Pain in left hip; M25.511 Pain in right shoulder; M25.512 Pain in left shoulder
CPT/HCPCS: 97110; 97140; 97162

== ENCOUNTER 2023-04-21 14:13 | Emergency (ER) | payer OTHER, SELFPAY ==
[2023-04-21 14:17] VITALS: BP 157/88; PULSE 101; RESP 20; TEMP 36.4; O2SAT 96
--- NOTE | 2023-04-21 14:58 | PC.NURSE ---
Pt reports that he has been feeling sick since last week and has recently been having difficulty urinating. Pt denies any pain or burning during urination but does report that he is not having as much urine output. Pt does not report having a fever. Pt has been experiencing slight nausea and vomited clear emisis this morning. Family member reports that pt is extremely SYCUAN has some confusion at baseline, but cannot distinguish if the confusion is due to the lack of hearing. Pt does not report any pain at this time.
[2023-04-21 14:59] LABS: Hematocrit 44.7 % (41-53); Hemoglobin 15.3 g/dL (13.5-17.5); Mean Corpuscular HGB Conc 34.3 % (30-36); Mean Corpuscular Hemoglobin 30.7 PG (26-34); Mean Corpuscular Volume 89.6 fL (80-100); Platelet Count 208 X10^3/uL (150-400); Red Blood Cell Count 4.98 X10^6/uL (4.5-5.9); Red Cell Distribution Width 13.4 % (11.6-14.8); White Blood Cell Count 14.3 X10^3/uL (4.5-11.0)
[2023-04-21 15:09] LABS: Add Manual Diff / Slide Review YES
[2023-04-21 15:14] LABS: Alanine Aminotransferase 22 IU/L (<50); Albumin 4.3 g/dL (3.5-5.0); Albumin Globulin Ratio 1.3 (1.0-2.8); Alkaline Phosphatase 52 U/L (38-126); Aspartate Aminotransferase 31 IU/L (17-59); BUN Creatinine Ratio 22.4 (6-22); Blood Urea Nitrogen 19 mg/dL (9-20); Calcium 10.1 mg/dL (8.4-10.2); Carbon Dioxide 26 mmol/L (22-32); Chloride 95 mmol/L (98-107); Estimated Glomerular Filt Rate > 60 mL/min (>60); Globulin 3.3 g/dL (1.7-4.1); Glucose 117 mg/dL (80-110); HEMOLYSIS < 15 (0-50); Lipase 50 U/L (23-300); Potassium 3.9 mmol/L (3.4-5.1); Sodium 131 mmol/L (137-145); Total Protein 7.6 g/dL (6.3-8.2)
[2023-04-21 15:18] LABS: Neutrophils Absolute Manual 11154 /uL (3000-5900); RBC Morphology Normal Morphology; Total Cells Counted 100
[2023-04-21 15:45] LABS: Bacteria Urine None Seen; Culture Indicated Urine Cult Not Indicated; RBC Urine 0-1/HPF (0-5/HPF); Squamous Epithelial Cell Urine 0-1 /HPF (0-5/HPF); WBC Urine 1-5/HPF (0-5/HPF)
[2023-04-21 16:28] VITALS: BP 196/83; PULSE 97; RESP 20; O2SAT 99
--- NOTE | 2023-04-21 17:02 | ED_ITS ---
HPI - Abdominal Pain General Chief Complaint: Abdominal Pain Stated Complaint: abd pain/light headed/dizzy/dehydrated/food poison Time Seen by Provider: 04/21/23 17:02 Source: patient Mode of arrival: Ambulatory History of Present Illness HPI narrative: Patient is a 87-year-old male without significant past medical history presenting today with left-sided abdominal pain nausea vomiting and diarrhea. He and his son ate fish over the weekend. His son thought that the fish smelled bad but patient is a only 1 who is sick. He has had a couple episodes of diarrhea and some vomiting. He is able to keep things down today. No vomiting here in the ED. He feels like some cramping and movement in his abdomen. No chest pain shortness breath palpitations. Related Data Home Medications Medication Instructions Recorded Confirmed ascorbic acid (vitamin C) 500 mg mg PO 12/05/19 04/16/23 capsule cholecalciferol (vitamin D3) 100 100 mcg PO DAILY 12/05/19 04/16/23 mcg (4,000 unit) capsule cyanocobalamin (vitamin B-12) 1,000 mcg PO DAILY 12/05/19 04/16/23 1,000 mcg capsule calcium carbonate 500 mg calcium 500 mg PO DAILY 10/10/22 04/16/23 (1,250 mg) chewable tablet zoledronic acid 5 mg/100 mL in 1 ea IV .once yearly 10/10/22 04/16/23 mannitol 5 %-water intravenous piggybck (Reclast) Previous Rx's Medication Instructions Recorded ondansetron 4 mg disintegrating 4 mg PO Q8H PRN nausea and 04/21/23 tablet vomiting #10 tabs Allergies Allergy/AdvReac Type Severity Reaction Status Date / Time ciprofloxacin [From Cipro] Allergy Verified 04/16/23 07:48 codeine [CODEINE] AdvReac Mild n&v Verified 04/16/23 07:48 hydrochlorothiazide AdvReac Mild Fatigue Verified 04/16/23 07:48 morphine [MORPHINE] AdvReac Mild N&V Verified 04/16/23 07:48 Patient History Medical History Impaired fasting glucose Gait instability Polyneuropathy, unspecified Mixed hyperlipidemia Cerebrovascular disease BPH w urinary obs/LUTS [place]'s disease Presbyacusis History of hemorrhoids History of nephrolithiasis High grade prostatic intraepithelial neoplasia Elevated PSA BPH (benign prostatic hyperplasia) Migraines (~2019) Osteoporosis Fractures (~2018) Rubella Mumps Chicken pox Tinnitus History of recurrent ear infection GERD (gastroesophageal reflux disease) Hyperparathyroidism TIA (transient ischemic attack) (~01/2019) Surgical History H/O breast biopsy Hx of tonsillectomy History of thyroid surgery H/O lithotripsy History of transurethral resection of prostate Anesthesia S/P excision of thyroid adenoma (~2005) S/P TURP History of hernia repair H/O left inguinal hernia repair History of tonsillectomy and adenoidectomy History of cataract removal with insertion of prosthetic lens Family History Brother COPD (chronic obstructive pulmonary disease) Cancer Father Cancer Mother Cancer Leukemia Social History details: (around 2016), 4 grown children; 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 Smoking Status: Never smoker alcohol intake: never Smoking Status: Never smoker alcohol intake frequency: 0-2 drinks per day Substance Use Type: does not use Exam Initial Vital Signs Initial Vital Signs: Vital Signs Temperature 97.6 F 04/21/23 14:17 Pulse Rate 101 H 04/21/23 14:17 Respiratory Rate 20 04/21/23 14:17 Blood Pressure 157/88 H 04/21/23 14:17 Pulse Oximetry 96 04/21/23 14:17 Oxygen Delivery Method Room Air 04/21/23 14:17 GENERAL: Alert well-appearing 87-year-old HEENT: Head atraumatic,EOMI, pupils reactive, face symmetric, moist mucous membranes CARDIOVASCULAR: Regular rate and rhythm without murmurs, rubs or gallops. RESPIRATORY: Breath sounds equal bilaterally, no wheezes rales or rhonchi. ABDOMEN: Soft, mild tenderness to a left-sided both upper and lower pain no guarding no rebound no distention EXTREMITIES: Normal range of motion, no clubbing or edema. Neurovascularly intact NEUROLOGICAL: Alert and oriented x4.Normal gait and speech. SKIN: Warm, dry, no laceration, no petechiae, no rashes or lesions. Course Orders Ordered: Discontinued Medications Ondansetron HCl (Ondansetron 4 Mg Odt) 4 mg PO NOW PRN PRN Reason: Nausea And Vomiting Ondansetron HCl (Ondansetron 4 Mg/2 Ml Inj) 4 mg IV NOW PRN PRN Reason: Nausea And Vomiting Vital Signs Vital signs: Vital Signs - 8 hr 04/21/23 14:17 04/21/23 16:28 Temperature 97.6 F Pulse Rate 101 H 97 H Respiratory Rate 20 20 Blood Pressure 157/88 H 196/83 H Pulse Oximetry 96 99 Oxygen Delivery Method Room Air Room Air MDM - Abdominal Pain Lab Data 04/21/23 14:57 04/21/23 14:57 Labs: Lab Results 04/21/23 04/21/23 Range/Units 13:00 14:57 WBC 14.3 H (4.5-11.0) X10^3/uL RBC 4.98 (4.5-5.9) X10^6/uL Hgb 15.3 (13.5-17.5) g/dL Hct 44.7 (41-53) % MCV 89.6 (80-100) fL MCH 30.7 (26-34) PG MCHC 34.3 (30-36) % RDW 13.4 (11.6-14.8) % Plt Count 208 (150-400) X10^3/uL Neut % (Auto) Not Reportable Lymph % (Auto) Not Reportable [place] % (Auto) Not Reportable Eos % (Auto) Not Reportable Baso % (Auto) Not Reportable Lymph # (Auto) Not Reportable [place] # (Auto) Not Reportable Baso # (Auto) Not Reportable Total Counted 100 Seg Neutrophils % 73.0 H (38-70) % Band Neutrophils % 5.0 (3-7) % Lymphocytes % (Manual) 13.0 L (25-45) % Monocytes % (Manual) 8.0 (2-11) % Metamyelocytes % 1.0 H (-0) % Neutrophils # (Manual) 82937 H (3521-9213) /uL RBC Morphology Normal morphology Sodium 131 L (137-145) mmol/L Potassium 3.9 (3.4-5.1) mmol/L Chloride 95 L (98-107) mmol/L Carbon Dioxide 26 (22-32) mmol/L BUN 19 (9-20) mg/dL Creatinine 0.85 (0.66-1.25) mg/dL Estimated GFR > 60 (>60) mL/min BUN/Creatinine Ratio 22.4 H (6-22) Glucose 117 H (80-110) mg/dL Calcium 10.1 (8.4-10.2) mg/dL Total Bilirubin 1.0 (0.2-1.3) mg/dL AST 31 (17-59) IU/L ALT 22 (<50) IU/L Alkaline Phosphatase 52 (38-126) U/L Total Protein 7.6 (6.3-8.2) g/dL Albumin 4.3 (3.5-5.0) g/dL Globulin 3.3 (1.7-4.1) g/dL Albumin/Globulin Ratio 1.3 (1.0-2.8) Lipase 50 (23-300) U/L Urine RBC 0-1/hpf (0-5/HPF) Urine WBC 1-5/hpf (0-5/HPF) Ur Squamous Epith Cells 0-1 /hpf (0-5/HPF) Urine Bacteria None seen (None) Ur Culture Indicated? Cult not indicated Point of care testing: Urine Dip Bedside Urine Glucose Negative Bedside Urine Bilirubin - Negative Bedside Urine Ketone +/- 5 Urine Specific [place] 1.010 Bedside Urine Occult Blood + Bedside Urine pH 6.0 Bedside Urine Protein - Negative Bedside Urine Urobilinogen - Negative Bedside Urine Nitrite - Negative Bedside Urine Leukocytes +/- 15 Esterase MDM Narrative Medical decision making narrative: Patient well-appearing 87-year-old male who presents with nausea vomiting diarrhea. He has had some left-sided abdominal pain. Overall he has been up in the emergency department multiple times. Work has been reviewed he does have leukocytosis of 14, sodium 131, chloride 95, bicarb 26, creatinine 0.8, glucose 117 CT abdomen pelvis shows probable gastroenteritis but no obstruction nonobstructing bilateral renal stones and an inguinal hernia with out inflammation or obstruction Patient has symptoms of gastroenteritis with nausea vomiting diarrhea. He is mild leukocytosis but I think stress reaction. At this time no antibiotics indicated. Supportive care only. He has been ambulatory up to the desk many times in the ED. His vitals are stable he has not required anything for pain or nausea while in the emergency department. Time supportive care only Discharge Plan Departure Patient Disposition: Home Clinical Impression: Gastroenteritis Instructions: DI for Viral Gastroenteritis -- Adult Activity Restrictions/Additional Instructions: *You have been diagnosed with gastroenteritis *What to do: At this time increase fluid intake as tolerated. Recommend Pedialyte/Gatorade. May increase diet as tolerated *Continue to take medications as directed Zofran 4 mg every 8 hours if needed for nausea or vomiting *Follow up with your primary care provider in 2-3 days or call [phone] *Return to ER if you should have increased abdominal pain inability to tolerate fluids or any new, worsening or concerning symptoms Prescriptions: New ondansetron 4 mg tablet,disintegrating 4 mg PO Q8H PRN (Reason: nausea and vomiting) Qty: 10 0RF No Action calcium carbonate 500 mg calcium (1,250 mg) tablet,chewable 500 mg PO DAILY zoledronic [id number] [Reclast] 5 mg/100 mL piggyback 1 ea IV .once yearly ascorbic acid (vitamin C) 500 mg capsule PO cholecalciferol (vitamin D3) 100 mcg (4,000 unit) capsule 100 mcg PO DAILY cyanocobalamin (vitamin B-12) 1,000 mcg capsule 1,000 mcg PO DAILY Referrals: Luis Miguel Ludwig MD [Primary Care Provider] - Stand Alone Forms: Patient Portal/API
--- NOTE | 2023-04-21 17:08 | DI.CT.S_ITS ---
PROCEDURE: CT ABDOMEN PELVIS W CON INDICATIONS: left sided pain TECHNIQUE: After the administration of intravenous contrast, axial sections acquired from the lung bases to the pubic symphysis. Coronal and sagittal reformats were performed. For radiation dose reduction, the following was used: automated exposure control, adjustment of mA and/or kV according to patient size. COMPARISON: [facility], CT, CT KIDNEY URETER BLADDER (KUB), 12/15/2019, 12:18. FINDINGS: Image quality: Diagnostic. Lower Chest: Bibasilar atelectasis. Borderline cardiomegaly. No pericardial effusion. Moderate sized hiatal hernia. Fluid fills the distal esophagus. ABDOMEN: Liver: There is diffuse hypoattenuation of the liver parenchyma relative to the spleen compatible with hepatic steatosis. Gallbladder: No radiopaque gallstones or wall thickening. Biliary ducts: No biliary dilation. Pancreas: No ductal dilation. Spleen: Size is within normal limits. Adrenal Glands: No adrenal nodules. Kidneys and Ureters: No hydronephrosis. No solid mass. No complex renal cystic lesion which requires follow up. Nonobstructing bilateral renal stones are again noted. No perinephric stranding. Bilateral ureters are normal in course and caliber. Stomach and Bowel: Stomach is not distended. Fluid fills the stomach with greater than expected circumferential wall thickening of the gastric antrum and pylorus. Nonspecific fluid-filled loops of small bowel seen throughout the abdomen. There is also suggestion of mild circumferential wall thickening of the duodenum. Colonic diverticulosis without acute diverticulitis. Normal colonic caliber, without significant wall thickening. Normal appendix Peritoneum: No abnormal intraperitoneal fluid. No free air. Ventral Wall: No hernia. Abdominal Nodes: No retroperitoneal or mesenteric adenopathy by size criteria. Vessels: Scattered atherosclerotic calcifications of the abdominal aorta and iliac vessels without aneurysmal dilatation. The inferior vena cava appears patent. PELVIS: Pelvic Organs: Unremarkable. Bladder: Unremarkable. Pelvic Nodes: No enlarged lymph nodes. Miscellaneous: There is a fat and small bowel containing right inguinal hernia without acute inflammation or obstruction proximally. Small fat containing left inguinal hernia without acute inflammation. Bones: No acute vertebral body compression fractures. Multilevel spondylitic changes throughout the imaged spine. No suspicious osseous lesions. IMPRESSION: 1. Findings suggestive of gastritis/duodenitis without evidence for perforation. Also, multiple loops of fluid-filled small bowel which may represent nonspecific enteritis either infectious or inflammatory in etiology. No evidence for bowel obstruction. 2. Normal appendix. 3. Colonic diverticulosis without acute diverticulitis. 4. Nonobstructing bilateral renal stones. No hydronephrosis or perinephric stranding. 5. Small bowel and fat containing right inguinal hernia without acute inflammation or obstruction proximally. 6. Other chronic findings as above. Dictated by: Chriss Dodd M.D. on 04/21/2023 at 18:42 Approved by: Chriss Dodd M.D. on 04/21/2023 at 18:48
[2023-04-21 19:04] VITALS: BP 185/95; PULSE 98; RESP 20; TEMP 37; O2SAT 98
== END 2023-04-21 19:06 | disposition home or self-care (01) ==
PROVIDERS: Emergency Provider Emergency Medicine; Family Provider Internal Medicine; PCP Internal Medicine
DX: K52.9 Noninfective gastroenteritis and colitis, unspecified (principal); R11.2 Nausea with vomiting, unspecified; R79.89 Other specified abnormal findings of blood chemistry
CPT/HCPCS: 36415; 74177; 80053; 81003; 81015; 83690; 85007; 85025; 99284

== ENCOUNTER 2023-10-12 12:21 | Emergency (ER) | payer OTHER, SELFPAY ==
[2023-10-12] VITALS (10 sets, daily range): BP systolic 154–201; BP diastolic 76–99; PULSE 63–89; RESP 16–17; TEMP 36.4–36.9; O2SAT 95–99
[2023-10-12 14:20] LABS: Alanine Aminotransferase 20 IU/L (<50); Albumin 4.6 g/dL (3.5-5.0); Albumin Globulin Ratio 1.5 (1.0-2.8); Alkaline Phosphatase 48 U/L (38-126); Aspartate Aminotransferase 32 IU/L (17-59); BUN Creatinine Ratio 14.8 (6-22); Bilirubin Total 0.8 mg/dL (0.2-1.3); Blood Urea Nitrogen 12 mg/dL (9-20); Carbon Dioxide 31 mmol/L (22-32); Chloride 104 mmol/L (98-107); Estimated Glomerular Filt Rate > 60 mL/min (>60); Globulin 3.1 g/dL (1.7-4.1); Glucose 96 mg/dL (80-110); Lipase 40 U/L (23-300); Potassium 4.3 mmol/L (3.4-5.1); Sodium 138 mmol/L (137-145); Total Protein 7.7 g/dL (6.3-8.2)
[2023-10-12 14:24] LABS: HEMOLYSIS 78 (0-50)
[2023-10-12 14:26] LABS: Add Manual Diff / Slide Review NO; Basophils Absolute Auto 100 /uL (0-100); Basophils Percent Auto 0.8 % (0-2); Eosinophils Absolute Auto 100 /uL (0-450); Eosinophils Percent Auto 0.9 % (2-4); Hematocrit 41.9 % (41-53); Hemoglobin 14.1 g/dL (13.5-17.5); Lymphocytes Absolute Auto 1500 /uL (1100-4500); Lymphocytes Percent Auto 14.7 % (25-40); Mean Corpuscular HGB Conc 33.7 % (30-36); Mean Corpuscular Hemoglobin 30.7 PG (26-34); Mean Corpuscular Volume 91.1 fL (80-100); Monocytes Absolute Auto 700 /uL (0-900); Monocytes Percent Auto 6.4 % (3-14); Neutrophils Absolute Auto 7900 /uL (1500-7000); Neutrophils Percent Auto 77.2 % (50-75); Platelet Count 211 X10^3/uL (150-400); White Blood Cell Count 10.2 X10^3/uL (4.5-11.0)
--- NOTE | 2023-10-12 14:40 | DI.CT.S_ITS ---
PROCEDURE: CT ABDOMEN PELVIS W CON INDICATIONS: IV contrast only/right side abdominal pain/hernia/mass TECHNIQUE: After the administration of intravenous contrast, axial sections acquired from the lung bases to the pubic symphysis. Coronal and sagittal reformats were performed. For radiation dose reduction, the following was used: automated exposure control, adjustment of mA and/or kV according to patient size. COMPARISON: [facility], CT, CT KIDNEY URETER BLADDER (KUB), 12/15/2019, 12:18. [facility], CT, CT ABDOMEN PELVIS W CON, 04/21/2023, 17:18. FINDINGS: Image quality: Diagnostic. Lower Chest: No significant findings. There is a small hiatal hernia. ABDOMEN: Liver: No solid mass. Gallbladder: Unremarkable. Biliary ducts: No biliary dilation. Pancreas: No ductal dilation. Spleen: Size is within normal limits. Adrenal Glands: No right adrenal gland nodules. There is an intermediate density left adrenal gland nodule which measured fat density on the comparison study dated December 15, 2019. Kidneys and Ureters: No hydronephrosis. No solid mass. A nonobstructing 4 mm calculus is present within the lower pole of the right kidney. A nonobstructive 4 mm calculus is present within the lower pole of the left kidney. No complex renal cystic lesion which requires follow up. Stomach and Bowel: Normal colonic caliber, without significant wall thickening. There are scattered sigmoid diverticula. No evidence for diverticulitis. The appendix is thin walled and gas filled. Peritoneum: No abnormal intraperitoneal fluid. No free air. Ventral Wall: No significant ventral hernia. Abdominal Nodes: No retroperitoneal or mesenteric adenopathy by size criteria. Vessels: Aorta and inferior vena cava are normal in size. There are scattered atheromatous calcifications throughout the aorta and iliac arteries bilaterally. PELVIS: Pelvic Organs: Unremarkable. Patient has likely undergone a prior TURP. The remaining prostate is calcified. Bladder: No bladder wall thickening, accounting for underdistention. Pelvic Nodes: No enlarged lymph nodes. Miscellaneous: There are moderate bilateral fat containing inguinal hernias. Bones: No aggressive osseous abnormality. IMPRESSION: 1. Probable left adrenal adenoma. 2. Bilateral nonobstructive nephrolithiasis. No hydronephrosis, hydroureter, or ureterolithiasis. 3. Normal appendix. Diverticulosis. No acute diverticulitis. 4. Moderate bilateral fat containing inguinal hernias. No bowel herniation. Dictated by: Maranda Haywood M.D. on 10/12/2023 at 15:40 Approved by: Maranda Haywood M.D. on 10/12/2023 at 15:46
--- NOTE | 2023-10-12 14:43 | ED_ITS ---
HPI - Abdominal Pain General Chief Complaint: Abdominal Pain Stated Complaint: Swelling Rt side of abd Time Seen by Provider: 10/12/23 14:25 Source: patient Mode of arrival: Ambulatory History of Present Illness HPI narrative: Patient here for a lump he noticed in the right lower lateral abdomen a week ago. Patient has history of left inguinal hernia repair years ago. Denies any abdominal wall hernias. The lump/mass is reducible. Has had intermittent constipation. Has had changes in diet, not as hungry as they used to be. No urinary complaints. Pants removed. Patient placed in a gown. There is a palpable 16 cm ovoid reducible mass in the right lateral abdominal wall. Patient seen by animal care worker about 10 days ago for right CVA/right paralumbar shingles. Was placed on treatment and the rash has improved but pain still persistent Related Data Home Medications Medication Instructions Recorded Confirmed ascorbic acid (vitamin C) 500 mg mg PO 12/05/19 10/15/23 capsule cholecalciferol (vitamin D3) 100 100 mcg PO DAILY 12/05/19 10/15/23 mcg (4,000 unit) capsule cyanocobalamin (vitamin B-12) 1,000 mcg PO DAILY 12/05/19 10/15/23 1,000 mcg capsule calcium carbonate 500 mg PO DAILY 10/10/22 10/15/23 zoledronic acid 5 mg/100 mL in 1 ea IV .once yearly 10/10/22 10/15/23 mannitol 5 %-water intravenous piggybck (Reclast) Previous Rx's Medication Instructions Recorded ondansetron 4 mg disintegrating 4 mg PO Q8H PRN nausea and 04/21/23 tablet vomiting #10 tabs Allergies Allergy/AdvReac Type Severity Reaction Status Date / Time ciprofloxacin [From Cipro] Allergy Verified 10/15/23 08:54 codeine [CODEINE] AdvReac Mild n&v Verified 10/15/23 08:54 hydrochlorothiazide AdvReac Mild Fatigue Verified 10/15/23 08:54 morphine [MORPHINE] AdvReac Mild N&V Verified 10/15/23 08:54 Review of Systems Review of Systems Narrative: GENERAL: negative chills, fatigue, malaise, fever, sweats. HEENT: negative sinus pain, ear pain, sore throat RESPIRATORY: negative dyspnea, cough CARDIOVASCULAR: negative chest pain, palpitations GASTROINTESTINAL: negative nausea, vomiting, positive abdominal pain : negative dysuria, frequency, hematuria MUSCULOSKELETAL: negative muscle or bony pain SKIN: negative rash, skin lesions NEUROLOGIC: negative weakness, numbness ROS Unobtainable: All systems reviewed & are unremarkable except as noted in HPI and below Patient History Medical History Post herpetic neuralgia Dermatitis Bilateral sensorineural hearing loss Impaired fasting glucose Gait instability Polyneuropathy, unspecified Mixed hyperlipidemia Cerebrovascular disease BPH w urinary obs/LUTS Sherman's disease Presbyacusis History of hemorrhoids History of nephrolithiasis High grade prostatic intraepithelial neoplasia Elevated PSA BPH (benign prostatic hyperplasia) Migraines (~2019) Osteoporosis Fractures (~2018) Rubella Mumps Chicken pox Tinnitus History of recurrent ear infection GERD (gastroesophageal reflux disease) Hyperparathyroidism TIA (transient ischemic attack) (~01/2019) Surgical History H/O breast biopsy Hx of tonsillectomy History of thyroid surgery H/O lithotripsy History of transurethral resection of prostate Anesthesia S/P excision of thyroid adenoma (~2005) S/P TURP History of hernia repair H/O left inguinal hernia repair History of tonsillectomy and adenoidectomy History of cataract removal with insertion of prosthetic lens Family History Brother COPD (chronic obstructive pulmonary disease) Cancer Father Cancer Mother Cancer Leukemia Social History details: (around 2016), 4 grown children; 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 EYES: Pupils equal round ENT: Mucous membranes moist. NECK: Trachea midline. CARDIOVASCULAR: Regular rate and rhythm RESPIRATORY: Clear to auscultation. Breath sounds equal bilaterally. No wheezes, rales, or rhonchi. GASTROINTESTINAL: Abdomen soft, Examination abdomen, soft, reproducible tenderness on a 16 cm ovoid hernia likely on the right lower lateral abdomen. Bowel sounds are present. No peritoneal signs. No discoloration or ecchymosis cyanosis over the mass. No peritoneal signs. Examination of the skin/back. Healing shingles rash dermatome right paralumbar skin area. No vesicles. EXTREMITIES: No gross deformities. BACK: No flank tenderness. NEURO: AOx4. SKIN: Warm and dry PSYCH: Not anxious, is cooperative Initial Vital Signs Initial Vital Signs: Vital Signs Temperature 98.4 F 10/12/23 12:27 Pulse Rate 89 10/12/23 12:27 Respiratory Rate 17 10/12/23 12:27 Blood Pressure 182/93 H 10/12/23 12:27 Pulse Oximetry 98 10/12/23 12:27 Oxygen Delivery Method Room Air 10/12/23 12:27 Course Orders Ordered: Discontinued Medications Sodium Chloride (Normal Saline 0.9%) 500 mls @ 1,000 mls/hr IV BOLUS ONE Stop: 10/12/23 15:09 Last Infusion: 10/12/23 15:44 Dose: Infused Documented By: Admin: 10/12/23 14:49 Dose: 1,000 mls/hr Documented By: KILLIAN Ondansetron HCl (Ondansetron 4 Mg/2 Ml Inj) 4 mg IV NOW PRN PRN Reason: Nausea And Vomiting Ondansetron HCl (Ondansetron 4 Mg Odt) 4 mg PO NOW PRN PRN Reason: Nausea And Vomiting Vital Signs Vital signs: Vital Signs - 8 hr 10/12/23 12:27 10/12/23 13:59 10/12/23 14:01 Temperature 98.4 F Pulse Rate 89 76 Respiratory Rate 17 Blood Pressure 182/93 H 201/93 H Pulse Oximetry 98 98 Oxygen Delivery Method Room Air 10/12/23 14:52 10/12/23 14:52 10/12/23 15:00 Temperature Pulse Rate 70 70 Respiratory Rate Blood Pressure 183/99 H Pulse Oximetry 99 95 Oxygen Delivery Method 10/12/23 15:19 10/12/23 15:19 10/12/23 15:30 Temperature Pulse Rate 70 63 Respiratory Rate Blood Pressure 186/87 H Pulse Oximetry 97 95 Oxygen Delivery Method 10/12/23 15:31 10/12/23 15:31 10/12/23 16:00 Temperature Pulse Rate 66 Respiratory Rate Blood Pressure 165/76 H 154/81 H Pulse Oximetry 95 Oxygen Delivery Method 10/12/23 16:00 Temperature Pulse Rate 66 Respiratory Rate Blood Pressure Pulse Oximetry 96 Oxygen Delivery Method MDM - Abdominal Pain Lab Data 10/12/23 13:52 10/12/23 13:52 Labs: Lab Results 10/12/23 10/12/23 Range/Units 13:52 16:12 WBC 10.2 (4.5-11.0) X10^3/uL RBC 4.60 (4.5-5.9) X10^6/uL Hgb 14.1 (13.5-17.5) g/dL Hct 41.9 (41-53) % MCV 91.1 (80-100) fL MCH 30.7 (26-34) PG MCHC 33.7 (30-36) % RDW 14.0 (11.6-14.8) % Plt Count 211 (150-400) X10^3/uL Neut % (Auto) 77.2 H (50-75) % Lymph % (Auto) 14.7 L (25-40) % [place] % (Auto) 6.4 (3-14) % Eos % (Auto) 0.9 L (2-4) % Baso % (Auto) 0.8 (0-2) % Neut # (Auto) 7900 H (4304-1663) /uL Lymph # (Auto) 1500 (6848-5238) /uL [place] # (Auto) 700 (0-900) /uL Eos # (Auto) 100 (0-450) /uL Baso # (Auto) 100 (0-100) /uL Sodium 138 (137-145) mmol/L Potassium 4.3 (3.4-5.1) mmol/L Chloride 104 (98-107) mmol/L Carbon Dioxide 31 (22-32) mmol/L BUN 12 (9-20) mg/dL Creatinine 0.81 (0.66-1.25) mg/dL Estimated GFR > 60 (>60) mL/min BUN/Creatinine Ratio 14.8 (6-22) Glucose 96 (80-110) mg/dL Calcium 10.0 (8.4-10.2) mg/dL Total Bilirubin 0.8 (0.2-1.3) mg/dL AST 32 (17-59) IU/L ALT 20 (<50) IU/L Alkaline Phosphatase 48 (38-126) U/L Total Protein 7.7 (6.3-8.2) g/dL Albumin 4.6 (3.5-5.0) g/dL Globulin 3.1 (1.7-4.1) g/dL Albumin/Globulin Ratio 1.5 (1.0-2.8) Lipase 40 (23-300) U/L Urine Color Yellow Urine Appearance Clear Urine pH 7.5 (4.5-8.0) Ur Specific [place] 1.010 (1.000-1.035) Urine Protein Negative (Negative) Urine Glucose (UA) Negative (Negative) g/dL Urine Ketones Negative (NEGATIVE) Urine Occult Blood Negative (Negative) Urine Nitrate Negative (Negative) Urine Bilirubin Negative (NEGATIVE) Urine Urobilinogen 0.2 (0.2) E.U./dL Ur Leukocyte Esterase Trace H (NEGATIVE) Urine RBC None seen (0-5/HPF) Urine WBC 0-1/hpf (0-5/HPF) Ur Squamous Epith Cells None seen (0-5/HPF) Urine Bacteria Occasional (0-1) (None) Ur Culture Indicated? Specimen cultured Vol Urine Centrifuged 10ml (spun) Point of care testing: Urine Dip Bedside Urine Glucose Negative Bedside Urine Bilirubin - Negative Bedside Urine Ketone - Negative Urine Specific [place] 1.005 Bedside Urine Occult Blood - Negative Bedside Urine pH 7.5 Bedside Urine Protein - Negative Bedside Urine Urobilinogen - Negative Bedside Urine Nitrite - Negative Bedside Urine Leukocytes +/- [address] scan - abdomen/pelvis: Radiologist's Impression: [address] [address] [address] Scan Report Signed Patient: Jatin Castro MR#: [id number] : 1935 Acct:[id number] Age/Sex: 87 / M Date of Service: 10/12/23 Loc: ED Accession Number: [id number] Procedure: CT abdomen pelvis w con Ordering Provider: Jak Atkins MD PROCEDURE: CT ABDOMEN PELVIS W CON INDICATIONS: IV contrast only/right side abdominal pain/hernia/mass TECHNIQUE: After the administration of intravenous contrast, axial sections acquired from the lung bases to the pubic symphysis. Coronal and sagittal reformats were performed. For radiation dose reduction, the following was used: automated exposure control, adjustment of mA and/or kV according to patient size. COMPARISON: [facility], CT, CT KIDNEY URETER BLADDER (KUB), 12/15/2019, 12:18. [facility], CT, CT ABDOMEN PELVIS W CON, 04/21/2023, 17:18. FINDINGS: Image quality: Diagnostic. Lower Chest: No significant findings. There is a small hiatal hernia. ABDOMEN: Liver: No solid mass. Gallbladder: Unremarkable. Biliary ducts: No biliary dilation. Pancreas: No ductal dilation. Spleen: Size is within normal limits. Adrenal Glands: No right adrenal gland nodules. There is an intermediate density left adrenal gland nodule which measured fat density on the comparison study dated December 15, 2019. Kidneys and Ureters: No hydronephrosis. No solid mass. A nonobstructing 4 mm calculus is present within the lower pole of the right kidney. A nonobstructive 4 mm calculus is present within the lower pole of the left kidney. No complex renal cystic lesion which requires follow up. Stomach and Bowel: Normal colonic caliber, without significant wall thickening. There are scattered sigmoid diverticula. No evidence for diverticulitis. The appendix is thin walled and gas filled. Peritoneum: No abnormal intraperitoneal fluid. No free air. Ventral Wall: No significant ventral hernia. Abdominal Nodes: No retroperitoneal or mesenteric adenopathy by size criteria. Vessels: Aorta and inferior vena cava are normal in size. There are scattered atheromatous calcifications throughout the aorta and iliac arteries bilaterally. PELVIS: Pelvic Organs: Unremarkable. Patient has likely undergone a prior TURP. The remaining prostate is calcified. Bladder: No bladder wall thickening, accounting for underdistention. Pelvic Nodes: No enlarged lymph nodes. Miscellaneous: There are moderate bilateral fat containing inguinal hernias. Bones: No aggressive osseous abnormality. IMPRESSION: 1. Probable left adrenal adenoma. 2. Bilateral nonobstructive nephrolithiasis. No hydronephrosis, hydroureter, or ureterolithiasis. 3. Normal appendix. Diverticulosis. No acute diverticulitis. 4. Moderate bilateral fat containing inguinal hernias. No bowel herniation. Dictated by: Maranda Haywood M.D. on 10/12/2023 at 15:40 Approved by: Maranda Haywood M.D. on 10/12/2023 at 15:46 MDM Narrative Medical decision making narrative: Patient here for a lump he noticed in the right lower lateral abdomen a week ago. Patient has history of left inguinal hernia repair years ago. Denies any abdominal wall hernias. The lump/mass is reducible. Has had intermittent constipation. Has had changes in diet, not as hungry as they used to be. No urinary complaints. Pants removed. Patient placed in a gown. There is a palpable 16 cm ovoid reducible mass in the right lateral abdominal wall. Patient seen by animal care worker about 10 days ago for right CVA/right paralumbar shingles. Was placed on treatment and the rash has improved but pain still persistent After history and exam CBC CMP normal saline CT abdomen pelvis MDM Medical records reviewed: No recent visit for this complaint Differential considered: Includes but not limited to neoplasm abdominal wall hernia lipoma Lab Test results independently reviewed as above. Pertinent findings: WBC 10.2 hemoglobin 14.1 sodium 138 potassium 4.3 BUN 12 creatinine 0.81 Independently reviewed EKG Imaging studies independently reviewed: Consultations: Treatments: None indicated this time Re-evaluations: 4:37 p.m.. Review with patient that he has 2 components of the pain in that side going. First, likely post herpetic pain from the shingles. Second likely the lipoma. At this time he states he will continue the Tylenol at home for pain control. He does desire to see Dr. Lyon or follow up regarding lipoma. Return precautions reviewed. He desires discharge home Discussion: Appropriate for discharge home exam and laboratory studies imaging studies are reassuring. Patient has likely post herpetic pain from shingles. Also lipoma that can be follow up with general surgeon. Return precautions reviewed. He desires discharge home Diagnosis: Abdominal wall mass/post herpetic pain Discharge Plan Departure Patient Disposition: Home Clinical Impression: Abdominal wall mass Instructions: Lipoma Activity Restrictions/Additional Instructions: Your exam and laboratory studies and imaging/CT scan studies are reassuring at this time. No new hernia seen. No hernia seen at the abdominal wall area of discomfort. Please call Dr. Lyon office this week for re-evaluation and review of CT scan imaging that was done today. This could be a lipoma, fat pad, that is causing your discomfort. Return if worse if any questions or concerns Prescriptions: No Action calcium carbonate 500 mg calcium (1,250 mg) tablet,chewable 500 mg PO DAILY zoledronic [id number] [Reclast] 5 mg/100 mL piggyback 1 ea IV .once yearly ondansetron 4 mg tablet,disintegrating 4 mg PO Q8H PRN (Reason: nausea and vomiting) Qty: 10 0RF ascorbic acid (vitamin C) 500 mg capsule PO cholecalciferol (vitamin D3) 100 mcg (4,000 unit) capsule 100 mcg PO DAILY cyanocobalamin (vitamin B-12) 1,000 mcg capsule 1,000 mcg PO DAILY Referrals: Brad Lyon MD [Physician] - Luis Miguel Ludwig MD [Primary Care Provider] - Stand Alone Forms: Patient Portal/API
[2023-10-12] MEDS: SODIUM CHLORIDE 0.9% 500 ML 1000 ML IV (14:49)
[2023-10-12 16:24] LABS: Appearance Urine UA CLEAR; Bilirubin Urine UA NEGATIVE (NEGATIVE); Color Urine UA YELLOW; Glucose Urine UA NEGATIVE (Negative); Ketones Urine UA NEGATIVE (NEGATIVE); Leukocyte Esterase Urine UA TRACE (NEGATIVE); Nitrite Urine UA NEGATIVE (Negative); Occult Blood Urine UA NEGATIVE (Negative); Protein Urine UA NEGATIVE (Negative); Urobilinogen Urine UA 0.2 E.U./dL (0.2); pH Urine UA 7.5 (4.5-8.0)
[2023-10-12 16:30] LABS: Bacteria Urine Occasional (0-1); Culture Indicated Urine Specimen Cultured; RBC Urine None Seen (0-5/HPF); Squamous Epithelial Cell Urine None Seen (0-5/HPF); Urine Volume 10mL (spun); WBC Urine 0-1/HPF (0-5/HPF)
== END 2023-10-12 16:44 | disposition home or self-care (01) ==
PROVIDERS: Emergency Provider Emergency Medicine; Family Provider Internal Medicine; PCP Internal Medicine
DX: R19.03 Right lower quadrant abdominal swelling, mass and lump (principal)
CPT/HCPCS: 36415; 74177; 80053; 81001; 81003; 83690; 85025; 87086; 96360; 99284

== ENCOUNTER → 2023-11-11 12:10 | Outpatient (CLI) | payer OTHER, SELFPAY ==
--- NOTE | 2023-11-11 12:11 | DI.CT.S_ITS ---
PROCEDURE: CT SINUS SCREEN WO CON INDICATIONS: HEAD CONGESTION/RHINORRHEA/PND/PANSINUSITIS TECHNIQUE: Noncontrast 3.0 mm axial images acquired from the frontal sinuses to the mid-sella, with coronal and sagittal reformats. For radiation dose reduction, the following was used: automated exposure control, adjustment of mA and/or kV according to patient size. COMPARISON: None. FINDINGS: Image quality: Excellent. Maxillary Sinuses: No bony remodeling or destruction. Mild mucosal thickening of the right maxillary sinus and moderate of the left maxillary sinus.. Ethmoid Air Cells: No bony remodeling or destruction. Mild diffuse mucosal thickening. Sphenoid Sinuses: No bony remodeling or destruction. Sinuses are clear. Frontal Sinuses: No bony remodeling or destruction. Mild mucosal thickening inferiorly. Ostiomeatal Complexes: Ostiomeatal complexes are partially opacified secondary to mucosal thickening and narrowed by bilateral Jodi cells. Miscellaneous: Visualized intra-orbital contents are normal. Bilateral lens replacements. No kimberley bullosa or paradoxical turbinate curvature. Mild rightward nasal septal deviation with spurring. IMPRESSION: Paranasal sinus disease as above, most pronounced within the left maxillary sinus. Dictated by: Jeff Driscoll M.D. on 11/11/2023 at 15:49 Approved by: Jeff Driscoll M.D. on 11/11/2023 at 15:51
== END ==
PROVIDERS: Family Provider Internal Medicine; PCP Internal Medicine; Referring Provider Otolaryngology; Visit Provider Otolaryngology
DX: J32.4 Chronic pansinusitis (principal); R09.81 Nasal congestion; J34.89 Other specified disorders of nose and nasal sinuses; R09.82 Postnasal drip
CPT/HCPCS: 70486

== ENCOUNTER → 2023-12-17 11:39 | Outpatient (CLI) | payer OTHER, SELFPAY ==
[2023-12-17 14:49] LABS: Calcium 10.8 mg/dL (8.4-10.2); Estimated Glomerular Filt Rate > 60 mL/min (>60)
[2023-12-17 15:04] LABS: Vitamin D 25 Hydroxy (D3) 41.2 ng/mL (30.0-100.0)
== END ==
PROVIDERS: Family Provider Internal Medicine; PCP Internal Medicine; Referring Provider Internal Medicine; Visit Provider Internal Medicine
DX: M81.8 Other osteoporosis without current pathological fracture (principal); R97.20 Elevated prostate specific antigen [PSA]; M17.0 Bilateral primary osteoarthritis of knee; M13.0 Polyarthritis, unspecified; R73.01 Impaired fasting glucose; E78.2 Mixed hyperlipidemia; B02.29 Other postherpetic nervous system involvement; L11.1 Transient acantholytic dermatosis [Grover]; I67.9 Cerebrovascular disease, unspecified
CPT/HCPCS: 36415; 82306; 82310; 82565; 84153; 84154

== ENCOUNTER → 2024-06-08 10:29 | Outpatient (CLI) | payer OTHER, SELFPAY ==
--- NOTE | 2024-06-08 10:31 | DI.RAD.S_ITS ---
PROCEDURE: XR DEXA AXIAL SKELETON INDICATIONS: SCREENING FOR OSTEOPOROSIS COMPARISON: [facility], , XR DEXA AXIAL SKELETON, 04/03/2021, 14:43. [facility], CR, XR DEXA AXIAL SKELETON, 04/12/2020, 9:53. FINDINGS: Lumbar Spine: Bone mineral density 1.319 g/cm2, T score 2.5. Prior DEXA was performed using dissimilar scan type or analysis method. Left Femoral Neck: Bone mineral density 0.571 g/cm2, T score -2.5. Left Hip: Bone mineral density 0.783 g/cm2, T score -1.3. Prior DEXA was performed using dissimilar scan type or analysis method. Fracture Risk Calculation (when applicable): FRAX score not reported due to T-score less than -2.5. (T score greater or equal to -1.0 to: NORMAL) (T score from -1.1 to -2.4: OSTEOPENIA) (T score less than or equal to -2.5: OSTEOPOROSIS) IMPRESSION: By WHO criteria, patient has osteoporosis. Follow-up guidelines as follows: Osteoporosis: Consider a repeat DEXA and Vertebral Fracture Assessment (VFA) exam in 2 years or sooner if medically necessary, to reassess this patient's status. Osteopenia: Consider a repeat DEXA in 2-3 years to reassess this patient's status, or if there is a new clinical indication. Normal: Consider a repeat DEXA in 5 years or sooner, or if there is a new clinical indication. All treatment decisions require clinical judgment and consideration of individual patient factors, including patient preferences, comorbidities, previous drug use, risk factors not captured in the FRAX model (e.g., frailty, falls, vitamin D deficiency, increased bone turnover, interval significant decline in bone density ) and possible under- or over-estimation of fracture risk by FRAX. In addition, the NOF Guide recommends that FDA-approved medical therapies be considered in postmenopausal women and men age >= 50 years with a: * Hip or vertebral (clinical or morphometric) fracture * T-score of <=-2.5 at the spine or hip * Ten-year fracture probability by FRAX of >= 3% for hip fracture or >=20% for major osteoporotic fracture. Approved by: Chris Mohr M.D. on 06/08/2024 at 20:31
== END ==
PROVIDERS: Family Provider Internal Medicine; PCP Internal Medicine; Referring Provider Internal Medicine Endocrinology, Diabetes & Metabolism; Visit Provider Internal Medicine Endocrinology, Diabetes & Metabolism
DX: M81.0 Age-related osteoporosis without current pathological fracture (principal)
CPT/HCPCS: 77080